=== PATIENT | male | born 1960 | race Caucasian/White ===

== ENCOUNTER → 2016-03-26 | Outpatient (CLI) | payer BC ==
[~2016-03-26] MED LIST: CETI10TA20 PO; MONT10TA24 PO; TRM50T PO
--- OUTSIDE RECORDS SUMMARY | 2016-03-26 10:05 | XMS REPORT | Continuity of Care Document ---
Author Author [facility] Organization [facility] Address Unknown Phone Unavailable Care Team Providers Care Truck Trailer Final Inspector Name Role Phone Jaylon Adler PCP [phone] Source Comments Some departments are not documenting in the electronic medical record. If you do not see the information that you expected, contact Release of Information in the Health Information Management department at [phone] for further assistance in locating additional records.[facility] Active Allergies and Adverse Reactions Allergen Noted Date Severity Reactions Comments Codeine 10/10/2010 NAUSEA AND VOMITING Current Medications Prescription Sig. Disp. Refills Start End Date Status Date ibuprofen (MOTRIN) 200 mg Take 200 mg by mouth Active tablet every 6 hours as needed for Pain. cetirizine (ZYRTEC) 10 mg Take 10 mg by mouth as Active tablet Needed for Allergy symptoms. DEXTROAMPHETAMINE/AMPHETA Take 10 mg by mouth twice Active MINE (ADDERALL PO) daily. 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 Social History Tobacco Use Types Packs/Day Years Used Date Never Smoker Last Filed Vital Signs Vital Sign Reading Time Taken Blood Pressure 121/79 09/04/2015 2:34 PM CDT Pulse 91 09/04/2015 2:34 PM CDT Temperature - - Respiratory Rate - - Height 1.829 m (6') 09/04/2015 2:34 PM CDT Weight 64.139 kg (141 lb 6.4 oz) 09/04/2015 2:34 PM CDT Body Mass Index 19.17 09/04/2015 2:34 PM CDT Oxygen Saturation - - Plan of Care Health Maintenance Due Date Last Done Comments Hepatitis C Screening 1961 Physical (Comprehensive) 1968 Exam Pertussis Vaccine 1972 Tetanus Vaccine 1978 Colorectal Cancer 09/17/2011 Screening Influenza Vaccine 10/10/2015 Results from Last 3 Months Not on file
--- NOTE | 2016-03-26 15:22 | Diagnostic Imaging Report ---
CLINICAL INDICATION: Patient with right abdominal pain. EXAM: Right upper quadrant ultrasound. COMPARISON: Gallbladder ultrasound dated 03/08/2008. FINDINGS: The liver has normal echogenicity, size and smooth liver surface. The liver measures 14.0 cm in craniocaudal dimension. There is no gross liver mass seen. There is no intrahepatic or extrahepatic ductal dilation. The common bile duct measures 3 mm. Gallbladder shows no evidence of stones or sludge. There is no significant gallbladder wall thickening or pericholecystic fluid. The pancreas is obscured and not well visualized and cannot be evaluated. Right kidney has normal echogenicity, size, or shape with no hydronephrosis or mass seen. The right kidney measures 8.9 cm in craniocaudal dimension. There is no sonographic Aquino's sign and no abdominal ascites. IMPRESSION: 1: Incomplete visualization of the pancreas. If there is clinical concern for pancreatic abnormality, serology tests or CT scan may better evaluate. 2: Otherwise, unremarkable right upper quadrant ultrasound. Dictated by: Dictated on workstation # [id number]
== END ==
LOC: RAD 10:00
DX: R10.11 Right upper quadrant pain (principal)
CPT/HCPCS: 76705

== ENCOUNTER 2016-04-28 10:41 | Outpatient (CLI) | payer BC ==
[~2016-04-28] VITALS: Ht 182.9 cm; Wt 62.6 kg
[~2016-04-28 10:41] MED LIST changes: -CETI10TA20 PO; -MONT10TA24 PO
--- OUTSIDE RECORDS SUMMARY | 2016-04-28 10:43 | XMS REPORT | Continuity of Care Document ---
Author Author [facility] Organization [facility] Address Unknown Phone Unavailable Care Team Providers Care Safe Deposit Box Rental Clerk Name Role Phone Jaylon Adler PCP [phone] Source Comments Some departments are not documenting in the electronic medical record. If you do not see the information that you expected, contact Release of Information in the Health Information Management department at [phone] for further assistance in locating additional records.[facility] Active Allergies and Adverse Reactions Allergen Noted [...]
[2016-04-28] MEDS ORDERED: CETI10TA20 PO (13:50)
[2016-04-28] MEDS ORDERED: MONT10TA24 PO (13:50)
== END 2016-04-28 13:55 ==
LOC: PREOP 10:41
PROVIDERS: ATTEND Surgery Pediatric Surgery
DX: Z01.818 Encounter for other preprocedural examination (principal); Z12.11 Encounter for screening for malignant neoplasm of colon

== ENCOUNTER 2016-04-29 09:14 | Day surgery (SDC) | payer BC ==
[~2016-04-29] VITALS: Ht 182.9 cm; Wt 62.6 kg
[~2016-04-29 09:14] MED LIST changes: +CETI10TA20 PO; +MONT10TA24 PO
[2016-04-29 09:45] VITALS: BP 120/82
[2016-04-29] MEDS ORDERED: LIDOCAINE JELLY 2% (XYLOCAINE) 5 ML TUBE MM PRN (10:00)
[2016-04-29] MEDS ORDERED: NS IV 500 ML 500 ML IV PRN (10:00)
[2016-04-29] MEDS ORDERED: NALOXONE 0.4 MG/ML 1 ML (NARCAN) VIAL IVP PRN (10:00)
[2016-04-29] MEDS ORDERED: FLUMAZENIL (ROMAZICON) 0.1 MG/ML 5 ML VIAL INJ PRN (10:00)
--- NOTE | 2016-04-29 10:14 | Conscious Sedation/ASA ---
Conscious Sedation Pre-Proced Time Reviewed: 10:14 ASA Class: 2 Airway Mallampati Classification: (confederated yakama appropriate class) I. II. III, IV Lungs Heart ASA score ASA 1: a normal healthy patient ASA 2: a patient with a mild systemic disease (mid diabetes, controlled hypertension, obesity ASA 3: a patient with a severe systemic disease that limits activity (angina , COPD, prior Myocardial infarction) ASA 4: a patient with an incapacitating disease that is a constant threat to life (CHF, renal failure) ASA 5: a moribund patient not expected to survive 24 hrs. (ruptured aneurysm) ASA 6: a declared brain patient whose organs are being harvested. For emergent operations, add the letter E after the classification Grade 2 Sedation Plan: Analgesia, Amnesia, Plan communicated to team members, Discussed options with patient/fam, Discussed risks with patient/fam Note The patient is an appropriate candidate to undergo the planned procedure, sedation, and anesthesia. The patient immediately re-assessed prior to indication. SHMUEL WILSON MD Apr 29, 2016 10:14 am
[2016-04-29] MEDS ORDERED: morphine INJ 10 MG/ML 1ML (SYR OR VIAL) IV PRN (10:15)
[2016-04-29] MEDS ORDERED: HYDROcodone/APAP 5 MG/325 MG (LORTAB) TAB PO PRN (10:15)
[2016-04-29] MEDS ORDERED: ACETAMINOPHEN 325 MG TABLET/CAPLET (TYLENOL) PO PRN (10:15)
[2016-04-29] MEDS ORDERED: ONDANSETRON 4 MG/2 ML (SDV) Z0FRAN IV PRN (10:15)
--- NOTE | 2016-04-29 10:15 | Progress Note-Pre Operative ---
Pre-Operative Progress Note H&P Reviewed The H&P was reviewed, patient examined and no changes noted. Date H&P Reviewed: Apr 29, 2016 Time H&P Reviewed: 10:14 Pre-Operative Diagnosis: screening colonoscopy SHMUEL WILSON MD Apr 29, 2016 10:15 am
[2016-04-29] MEDS ORDERED: fentaNYL INJECTION 100 MCG/2 ML AMP ONE ×2 (11:28)
[2016-04-29] MEDS ORDERED: MIDAZOLAM 2 MG/2 ML (VERSED) VIAL ONE ×5 (11:28→11:29)
[2016-04-29] MEDS ORDERED: LIDOCAINE JELLY 2% (XYLOCAINE) 5 ML TUBE ONE (11:29)
[2016-04-29] MEDS: MIDAZOLAM 2 MG/2 ML (VERSED) VIAL IVP PRN ×3 (11:40→11:50)
[2016-04-29] MEDS: fentaNYL INJECTION 100 MCG/2 ML AMP IVP PRN ×4 (11:41→11:52)
--- NOTE | 2016-04-29 12:18 | Progress Note-Post Operative ---
Post-Operative Progess Note Pre-Operative Diagnosis screening colonoscopy Post-Operative Diagnosis chronic stage 1 ext and int hemorrhoids, small HP polyp hepatic flexure(2mm). Post-Op Procedure Note Date of Procedure: Apr 29, 2016 Name of Procedure: Colonoscopy with bx Anesthesia Type CS Estimated blood loss (mL): minimal Specimen(s) collected hepatic flexure polyp SHMUEL WILSON MD Apr 29, 2016 12:18 pm
--- NOTE | 2016-04-29 12:19 | Discharge Inst-Surgical ---
D/C Lap Instructions-KATIE Follow Up 5 years Activity as tolerated High Fiber Diet 25g or more per day Avoid Alcohol, Caffeine, Spicy [place] and Acid foods. Drink 64 fluid oz or more of fluids per day. Symptoms to Report: Fever over 101 degree F, Nausea/Vomiting If any problems/questions: Contact your physician or go to Emergency Room SHMUEL WILSON MD Apr 29, 2016 12:19 pm
[2016-04-29 12:35] VITALS: BP 118/65
[2016-04-29 13:00] VITALS: BP 111/69
[2016-04-29 13:25] VITALS: BP 111/69
--- NOTE | 2016-04-29 14:01 | OPERATIVE REPORT ---
PROCEDURE PHYSICIAN: SHMUEL PFEIFFER DATE OF PROCEDURE: 04/29/2016 ATTENDING PRIMARY CARE PHYSICIAN: Dr. Jaylon Adler. PREOPERATIVE DIAGNOSIS: Screening colonoscopy. POSTOPERATIVE DIAGNOSIS: 1. Mild chronic stage I external and internal hemorrhoids. 2. Small hyperplastic polyp at the hepatic flexure 1 to 2 mm in size. 3. Mild sigmoid diverticulosis. PROCEDURE: Colonoscopy with biopsy. SURGEON: Dr. Pfeiffer. ANESTHESIA: Conscious sedation. ESTIMATED BLOOD LOSS: Minimal. FINDINGS: 1. Mild chronic stage I external and internal hemorrhoids. 2. Small hyperplastic polyp of the hepatic flexure was identified approximately 1 to 2 mm in size. 3. Mild sigmoid diverticulosis 4. The remainder of the colon was normal. DISPOSITION: The patient tolerated procedure well. Mr. Aneesh Shell is a 55-year-old male in need of a screening colonoscopy. He states that for the most part he is doing well and does not report any major issues with diarrhea, nor constipation, as well as no red blood per rectum nor any dark tarry stools. He has not had a colonoscopy up to this point in his life. He also does not report any family history of colon cancer. PROCEDURE: The patient was brought to the endoscopy suite, laid in left lateral decubitus position. After adequate IV pain and sedative medications and conscious sedation anesthesia, a digital rectal examination was performed. Mild chronic stage I external and internal hemorrhoids were identified which were not actively edematous or inflamed and no bleeding. Normal sphincter tone was felt and there were no palpable masses. The prostate gland was palpable and appeared normal. The endoscope was then intubated into the anus and the rectum gently insufflated. The endoscope was then advanced through the valve of Mendez the rectum with no polyps or any neoplasms identified. The endoscope was then advanced through the sigmoid colon where a few small isolated diverticula identified. The endoscope was then advanced through the remainder of the descending, transverse, and ascending colon to the cecum. A small hyperplastic polyp around the hepatic flexure was identified. This was approximately 2 mm in size and benign in appearance. This was biopsied and destroyed using forceps and cautery with visualization of good hemostasis. The endoscope was then slowly withdrawn while taking a second look and suctioning of residual air with no additional findings. The patient tolerated the procedure well. We will continue with a high fiber diet with least 30 grams of fiber per day, as well as at least 64 fluid ounces of water to promote soft stools on a daily basis. We will recommend a follow-up colonoscopy in 5 years. Job ID: [id number] Dictated Date: 04/29/2016 12:13:33 Appointment Specialist Date: 04/29/2016 13:55:02 / trupti MACEDO
--- OUTSIDE RECORDS SUMMARY | 2016-05-03 04:44 | XMS REPORT ---
Author Author KENIA BURNETT Organization [employer] Address Unknown Phone Unavailable Care Team Providers Care Director Environmental Name Role Phone KENIA BURNETT CP Unavailable Allergies No Known Allergies Problems Problem Type Condition ICD-9 Code Onset Dates Condition Status Assessment Anxiety disorder, unspecified 300.00 Active Medications No Known Medications Procedures Procedure Coding System Code Date Psychotherapy, patient &/family, 45 minutes, established patient CPT-4 18550 Sep 27, 2014 Results No Known Results Summary Purpose [employer] Submission
--- OUTSIDE RECORDS SUMMARY | 2016-05-03 04:44 | XMS REPORT | Continuity of Care Document ---
Author Author [facility] Organization [facility] Address Unknown Phone Unavailable Care Team Providers Care Jewelry Finisher Name Role Phone Jaylon Adler PCP [phone] Source Comments Some departments are not documenting in the electronic medical record. If you do not see the information that you expected, contact Release of Information in the Health Information Management department at [phone] for further assistance in locating additional records.[facility] Active Allergies and Adverse Reactions Allergen [...] 1978 Colorectal Cancer 09/17/2011 Screening Influenza Vaccine 10/09/2016 Results from Last 3 Months Not on file
--- OUTSIDE RECORDS SUMMARY | 2016-05-03 04:44 | XMS REPORT ---
Author Author KENIA BURNETT Organization [employer] Address Unknown Phone Unavailable Care Team Providers Care Chief Growth Officer Name Role Phone KENIA BURNETT CP Unavailable Allergies No Known Allergies Problems Problem Type Condition ICD-9 Code Onset Dates Condition Status Assessment Anxiety disorder, unspecified 300.00 Active Medications No Known Medications Procedures Procedure Coding System Code Date Psychotherapy, patient &/family, 45 minutes, established patient CPT-4 42470 Oct 05, 2014 Results No Known Results Summary Purpose [employer] Submission
--- OUTSIDE RECORDS SUMMARY | 2016-05-03 04:44 | XMS REPORT ---
Author Author KENIA BURNETT Organization [employer] Address Unknown Phone Unavailable Care Team Providers Care Elevator Operator Freight Name Role Phone KENIA BURNETT CP Unavailable Allergies No Known Allergies Problems Problem Type Condition Code Onset Dates Condition Status Assessment Anxiety disorder, unspecified F41.9 Active Problem Anxiety disorder, unspecified F41.9 Active Medications No Known Medications Procedures Procedure Coding System Code Date Psychotherapy, patient &/family, 45 minutes, established patient CPT-4 04625 Jan 28, 2015 Results No Known Results Summary Purpose [employer] Submission
--- OUTSIDE RECORDS SUMMARY | 2016-05-03 04:44 | XMS REPORT ---
Author Author KENIA BURNETT Organization [employer] Address Unknown Phone Unavailable Care Team Providers Care Healthcare Social Worker Name Role Phone KENIA BURNETT CP Unavailable Allergies No Known Allergies Problems Problem Type Condition ICD-9 Code Onset Dates Condition Status Assessment Anxiety disorder, unspecified 300.00 Active Medications No Known Medications Procedures Procedure Coding System Code Date Psychotherapy, patient &/family, 45 minutes, established patient CPT-4 11022 Oct 11, 2014 Results No Known Results Summary Purpose [employer] Submission
--- OUTSIDE RECORDS SUMMARY | 2016-05-03 04:44 | XMS REPORT ---
Author Author KENIA BURNETT Organization [employer] Address Unknown Phone Unavailable Care Team Providers Care Reclamation Kettle Tender Name Role Phone KENIA BURNETT CP Unavailable Allergies No Known Allergies Problems Problem Type Condition Code Onset Dates Condition Status Assessment Anxiety disorder, unspecified F41.9 Active Problem Anxiety disorder, unspecified F41.9 Active Medications No Known Medications Procedures Procedure Coding System Code Date Psychotherapy, patient &/family, 45 minutes, established patient CPT-4 73269 August 29, 2015 Results No Known Results Summary Purpose [employer] Submission
--- OUTSIDE RECORDS SUMMARY | 2016-05-03 04:44 | XMS REPORT ---
Author Author KENIA BURNETT Organization [employer] Address Unknown Phone Unavailable Care Team Providers Care Manager Net Name Role Phone KENIA BURNETT CP Unavailable Allergies No Known Allergies Problems Problem Type Condition Code Onset Dates Condition Status Assessment Anxiety disorder, unspecified F41.9 Active Problem Anxiety disorder, unspecified F41.9 Active Medications No Known Medications Procedures Procedure Coding System Code Date Psychotherapy, patient &/family, 45 minutes, established patient CPT-4 55897 Dec 19, 2014 Results No Known Results Summary Purpose [employer] Submission
--- OUTSIDE RECORDS SUMMARY | 2016-05-03 04:44 | XMS REPORT ---
Author Author KENIA BURNETT Organization [employer] Address Unknown Phone Unavailable Care Team Providers Care Drapery Hemmer Automatic Name Role Phone KENIA BURNETT CP Unavailable Allergies No Known Allergies Problems Problem Type Condition ICD-9 Code Onset Dates Condition Status Assessment Anxiety disorder, unspecified 300.00 Active Medications No Known Medications Procedures Procedure Coding System Code Date Psychotherapy, patient &/family, 45 minutes, established patient CPT-4 21833 Oct 25, 2014 Results No Known Results Summary Purpose [employer] Submission
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
--- OUTSIDE RECORDS SUMMARY | 2016-05-03 04:44 | XMS REPORT ---
Author Author KENIA BURNETT [facility] Address [address] [place] [address] Care Team Providers Care Planning Aide Name Role Phone KENIA BURNETT Unavailable PROBLEMS Type Condition ICD9-CM Code DTF14-PD Code Onset Dates Condition Status SNOMED Code Problem Anxiety disorder, unspecified F41.9 Active 891930267 Assessment Anxiety disorder, unspecified F41.9 Oct, Active [id number] ALLERGIES Unknown Allergies SOCIAL HISTORY No smoking Hx information available PLAN OF CARE VITAL SIGNS MEDICATIONS Unknown Medications RESULTS No Results PROCEDURES Procedure Date Ordered Related Diagnosis Body Site Psychotherapy, patient &/family, 45 minutes, established patient Oct 23, 2015 IMMUNIZATIONS No Known Immunizations
--- OUTSIDE RECORDS SUMMARY | 2016-05-03 04:44 | XMS REPORT ---
Author Author KENIA BURNETT Organization [employer] Address Unknown Phone Unavailable Care Team Providers Care Category Manager Name Role Phone KENIA BURNETT CP Unavailable Allergies No Known Allergies Problems Problem Type Condition Code Onset Dates Condition Status Assessment Anxiety disorder, unspecified F41.9 Active Problem Anxiety disorder, unspecified F41.9 Active Medications No Known Medications Procedures Procedure Coding System Code Date Psychotherapy, patient &/family, 45 minutes, established patient CPT-4 96188 Mar 04, 2015 Results No Known Results Summary Purpose [employer] Submission
== END 2016-04-29 13:25 | disposition home or self-care (01) ==
LOC: DELPENDDIS → ENDO 09:14
PROVIDERS: ATTEND Surgery Pediatric Surgery
DX: Z12.11 Encounter for screening for malignant neoplasm of colon (principal); K63.5 Polyp of colon; K57.30 Diverticulosis of large intestine without perforation or abscess without bleeding; K64.0 First degree hemorrhoids
CPT/HCPCS: 88305

== ENCOUNTER 2019-09-10 15:24 | Emergency (ER) | payer BC ==
[~2019-09-10] VITALS: Ht 180.3 cm; Wt 68.9 kg
[~2019-09-10 15:24] MED LIST changes: -CETI10TA20 PO; +CETI10TA21 PO; -MONT10TA24 PO; +MONT10TA26 PO
--- OUTSIDE RECORDS SUMMARY | 2019-09-10 15:38 | XMS REPORT ---
Author Author Aneesh JOSE Organization [facility] Address [address] [place] [address] Care Team Providers Care Contract Engineer Name Role Phone DAMON MIRA Unavailable PROBLEMS Type Condition ICD9-CM Code USB34-BE Code Onset Dates Condition S tatus SNOMED Code Problem Anxiety disorder, unspecified F41.9 Active [id number] ALLERGIES No Information ENCOUNTERS Encounter Location Date Diagnosis [place] [address] [place] [id number] [place] [address] June, Anxiety disorder, unspecifie d F41.9 [place] [address] [place] [id number] [address] [place] [address] May, Anxiety disorder, unspecifie d F41.9 [facility] [address] [address] [id number] [address] [place] [address] Apr, Anxiety disorder, unspecifie d F41.9 [place] [address] [place] [id number] [address] [place] [address] Apr, [facility] [address] [address] [id number] [place] [address] Feb, Anxiety disorder, unspecifie d F41.9 [facility] [address] [id number] [address] [place] [address] Jan, Anxiety disorder, unspecifie d F41.9 [facility] [address] [place] [address] [id number] [address] [place] [address] Dec, Anxiety disorder, unspecifie d F41.9 [facility] [address] [place] [address] [id number] [place] [address] Nov, Anxiety disorder, unspecifie d F41.9 [place] [address] [facility] [id number] [address] [place] [address] Oct, Anxiety disorder, unspecifie d F41.9 [facility] [address] [facility] [id number] [address] [place] [address] Sep, Anxiety disorder, unspecifie d F41.9 [facility] [address] [facility] [id number] [address] [place] [address] Aug, Anxiety disorder, unspecifie d F41.9 [facility] [address] [facility] [id number] [address] [place] [address] Jul, Anxiety disorder, unspecifie d F41.9 [facility] [address] [facility] [id number] [address] [place] [address] June, Anxiety disorder, unspecifie d F41.9 [facility] [address] [facility] [id number] [address] [place] [address] May, Anxiety disorder, unspecifie d F41.9 [facility] [address] [facility] [id number] [address] [place] [address] May, Anxiety disorder, unspecifie d F41.9 [facility] [address] [facility] [id number] [address] [place] [address] Feb, Anxiety disorder, unspecifie d F41.9 [facility] [address] [facility] [id number] [address] [place] [address] May, Anxiety disorder, unspecifie d F41.9 [facility] [address] [facility] [id number] [address] [place] [address] Apr, Anxiety disorder, unspecifie d F41.9 [facility] [address] [facility] [id number] [address] [place] [address] Mar, Anxiety disorder, unspecifie d F41.9 [facility] [address] [facility] [id number] [address] [place] [address] Oct, Anxiety disorder, unspecifie d F41.9 [facility] [address] [id number] [address] [place] [address] Oct, Anxiety disorder, unspecifie d F41.9 [facility] [address] [id number] [address] [place] [address] Aug, Anxiety disorder, unspecifie d F41.9 [facility] [address] [id number] [address] [place] [address] Jul, Anxiety disorder, unspecifie d F41.9 [facility] [address] [id number] [address] [place] [address] Jul, Anxiety disorder, unspecifie d F41.9 [facility] [address] [facility] [id number] [address] [place] [address] June, Anxiety disorder, unspecifie d F41.9 [facility] [address] [facility] [id number] [address] [place] [address] June, Anxiety disorder, unspecifie d F41.9 [facility] [address] [facility] [id number] [address] [place] [address] May, Anxiety disorder, unspecifie d F41.9 [facility] [address] [facility] [id number] [address] [place] [address] Apr, Anxiety disorder, unspecifie d F41.9 [facility] [address] [facility] [id number] [address] [place] [address] Apr, Anxiety disorder, unspecifie d F41.9 [facility] [address] [facility] [id number] [address] [place] [address] Mar, Anxiety disorder, unspecifie d F41.9 [facility] [address] [facility] [id number] [address] [place] [address] Feb, Anxiety disorder, unspecifie d F41.9 [facility] [address] [place] [id number] [address] [place] [address] Jan, Anxiety disorder, unspecifie d F41.9 [facility] [address] [place] [id number] [address] [place] [address] Dec, Anxiety disorder, unspecifie d F41.9 [facility] [address] [place] [id number] [place] [address] Nov, Anxiety disorder, unspecifie d F41.9 [facility] [address] [place] [id number] [address] [place] [address] Oct, Anxiety disorder, unspecifie d 300.00 [facility] [address] [id number] Oct, Anxiety disorder, unspecifie d 300.00 [facility] [address] [place] [id number] [address] [place] [address] Sep, Anxiety disorder, unspecifie d 300.00 [facility] [address] [place] [id number] [address] [place] [id number] Sep, Anxiety disorder, unspecifie d 300.00 [facility] [address] [place] [id number] [address] [place] [address] Sep, Anxiety disorder, unspecifie d 300.00 [facility] [address] [place] [id number] [address] [place] [address] Sep, Anxiety disorder, unspecifie d 300.00 [facility] [address] [place] [id number] [address] [place] [address] Aug, Anxiety disorder, unspecifie d 300.00 [facility] [address] [place] [id number] [address] [place] [address] June, Anxiety disorder, unspecifie d 300.00 [facility] [address] [place] [id number] [address] [place] [address] Apr, [facility] [address] [id number] [address] [place] [address], [place] [address] Apr, [facility] [address] [id number] [address] [place] [address], [place] [address] Apr, [facility] [address] [id number] [address] [place] [address], [place] [address] Apr, [facility] [address] [id number] [address] [place] [address], [place] [address] Mar, 2014 [facility] [address] [id number] [address] [place] [address], [place] [address] Mar, 2014 [facility] [address] [id number] [address] [place] [address], [place] [address] Mar, 2014 [facility] [address] [id number] [address] [place] [address], [place] [address] Mar, [facility] [address] [id number] [address] [place] [address], [place] [address] Aug, [facility] [address] [id number] [address] [place] [address], [place] [address] Aug, [facility] [address] [id number] [address] [place] [address], [place] [address] Apr, [facility] [address] [id number] [address] [place] [address], [place] [address] Apr, [facility] [address] [id number] [address] [place] [address], [place] [address] Mar, [facility] [address] [id number] [address] [place] [address], [place] [address] Mar, [facility] [address] [id number] [address] [place] [address], [place] [address] Feb, [facility] [address] [id number] [address] [place] [address], [place] [address] Feb, [facility] [address] [id number] [address] [place] [address], [place] [address] Feb, [facility] [address] [id number] [address] [place] [address], [place] [address] Feb, [facility] [address] [id number] [address] [place] [address], [place] [address] Oct, [facility] [address] [id number] [address] [place] [address], [place] [address] Sep, [facility] [address] [id number] [address] [place] [address], [place] [address] Aug, [facility] [address] [id number] [address] [place] [address], [place] [address] May, [facility] [address] [id number] [address] [place] [address], [place] [address] Apr, [facility] [address] [id number] [address] [place] [address], [place] [address] Mar, [facility] [address] [id number] [address] [place] [address], [place] [address] Mar, [facility] [address] [id number] [address] [place] [address], [place] [address] Feb, [facility] [address] [id number] [address] [place] [address], [place] [address] Jan, [facility] [address] [id number] [address] [place] [address], [place] [address] Jan, [facility] [address] [id number] [address] [place] [phone] Dec, [facility] [address] [id number] [address] [place] [address], [place] [address] Dec, [facility] [address] [id number] [address] [place] [address], [place] [address] Nov, [facility] [address] [id number] [address] [place] [address], [place] [address] Nov, [facility] [address] [id number] [address] [place] [address], [place] [address] Oct, [facility] [address] [id number] [address] [place] [address], [place] [address] Sep, [facility] [address] [id number] [address] [place] [address], [place] [address] Sep, [facility] [address] [id number] [address] [place] [address], [place] [address] Aug, [facility] [address] [id number] [address] [place] [address], [place] [address] Aug, [facility] [address] [id number] [address] [place] [address], [place] [address] Jul, [facility] [address] [id number] [address] [place] [address], [place] [address] Jul, [facility] [address] [id number] [address] [place] [address], [place] [address] June, [facility] [address] [id number] [address] [place] [address], [place] [address] June, [facility] [address] [id number] [address] [place] [address], [place] [address] May, [facility] [address] [id number] [address] [place] [address], [place] [address] May, [facility] [address] [id number] [address] [place] [address], [place] [address] May, [facility] [address] [id number] [address] [place] [address], [place] [address] Apr, [facility] [address] [id number] [address] [place] [address], [place] [address] Apr, [facility] [address] [id number] [address] [place] [address], [place] [address] Mar, [facility] [address] [id number] [address] [place] [address], [place] [address] Feb, [facility] [address] [facility] [id number] [address] [place] [address] Feb, [facility] [address] [facility] [id number] [address] [place] [address] Dec, [facility] [address] [facility] [id number] [address] [place] [address] Nov, IMMUNIZATIONS No Known Immunizations SOCIAL HISTORY Never Assessed REASON FOR VISIT PLAN OF CARE VITAL SIGNS MEDICATIONS Unknown Medications RESULTS No Results PROCEDURES Procedure Date Ordered Result Body Site PSYTX PT&/FAMILY 45 MINUTES Sep 22, 2012 INSTRUCTIONS MEDICATIONS ADMINISTERED No Known Medications
--- OUTSIDE RECORDS SUMMARY | 2019-09-10 15:38 | XMS REPORT ---
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 [facility] Address [address] [address] Care Team Providers Care Educational Institution Curator Name Role Phone BOEKHOUT, KENIA Unavailable Unavailable PELON JAYLON D Unavailable SCHOEBETY JAYLON D Unavailable BOEKHOUT, KENIA Unavailable BOEKHOUT, KENIA Unavailable BOEKHOUT, KENIA Unavailable BOEKHOUT, KENIA Unavailable BOEKHOUT, KENIA Unavailable BOEKHOUT, KENIA Unavailable BOEKHOUT, KENIA Unavailable BOEKHOUT, KENIA Unavailable BOEKHOUT, KENIA Unavailable BOEKHOUT, KENIA Unavailable BOEKHOUT, KENIA Unavailable KATIE SCHROEDER, SHMUEL Unavailable Unavailable PELON SCHROEDER, JAYLON D Unavailable Unavailable THANIA SCHROEDER, URIAH Unavailable Unavailable DEB SCHROEDER, AHMED T Unavailable Unavailable DEBBIE BLANCHARD APRN Unavailable Unavailable Schoebety Jaylon Unavailable Unavailable BOEKHOUT, KENIA Unavailable MIRA JOSE Unavailable BOEKHOUT, KENIA Unavailable BOEKHOUT, KENIA Unavailable MIRA JOSE Unavailable MIRA JOSE Unavailable MIRA JOSE Unavailable BOEKHOUT, KENIA Unavailable MIRA JOSE Unavailable BOEKHOUT, KENIA Unavailable BOEKHOUT, KENIA Unavailable LEX KENIA Unavailable LEX KENIA Unavailable MIRA JOSE Unavailable KENIA BURNETT Unavailable MIRA JOSE Unavailable MIRA JOSE Unavailable Unavailable Unavailable Unavailable Unavailable Allergies The data below is from unstructured sourcesNo Known Allergies No Information No Information No Information No Information No Information No Information No Information No Information No Information No Information No Information No Information No Information No Information No Information No Information No Information No Information No Information No Information No Information No Information No Information No Information No Information No Information No Information No Information No Information No Information No Information No Information Encounters Encounter Date Encounter Type Encounter Diagnosis Care Provider Facility Start: Patient encounter Jaylon Bird [facility] 06-23-2018 procedure [facility] ([id number]) Start: Patient encounter Jaylon Bird [facility] 04-22-2018 procedure Center [facility] ([id number]) Start: Patient encounter Jaylon Bird [facility] 03-03-2018 procedure Center [facility] ([id number]) Start: Patient encounter Jaylon Bird [facility] 01-26-2018 procedure [facility] ([id number]) Start: Patient encounter NA NA Not Availab le ([id number]) 09-09-2017 procedure Start: Patient encounter Jaylon Bird [facility] 07-14-2017 procedure Center [facility] ([id number]) Start: Patient encounter Jaylon Bird [facility] 07-07-2017 procedure Center [facility] ([id number]) Start: Patient encounter Jaylon Bird [facility] 05-27-2017 procedure Center [facility] ([id number]) Start: Patient encounter Jaylon Bird [facility] 05-11-2017 procedure [facility] ([id number]) Start: Patient encounter SHMUEL WILSON MD Not Availa ble ([id number]) 04-29-2016 procedure End: 04-29-2016 Start: Patient encounter SHMUEL WILSON MD Not Availa ble ([id number]) 04-28-2016 procedure End: 04-28-2016 Start: Patient encounter JAYLON BIRD MD Not Avai lable ([id number]) 03-26-2016 procedure Start: Patient encounter JAYLON BIRD MD Not Avai lable ([id number]) 04-26-2015 procedure Start: Patient encounter URIAH MONTEIRO MD Not Kae ilable ([id number]) 04-26-2015 procedure Start: Patient encounter JEFF BOYD MD Not Availa ble ([id number]) 08-17-2014 procedure Start: Patient encounter JEFF BOYD MD Not Availa ble ([id number]) 08-16-2014 procedure Start: Emergency department DEBBIE BARONES Not Avai lable ([id number]) 08-12-2014 patient visit End: 08-13-2014 Start: Emergency department DEBBIE BARONES Not Avai lable ([id number]) 01-17-2013 patient visit End: 01-17-2013 Start: Patient encounter JAYLON BIRD MD Not Avai lable ([id number]) 10-09-2010 procedure Encounter for other SHMUEL WILSON MD Not Available ([phone]) preprocedural examination Medical Equipment No Information Goals No Information Immunizations The data below is from unstructured sourcesNo immunization records.No immunization records.No immunization records. No Known Immunizations No Known Immunizations No Known Immunizations No Known Immunizations No Known Immunizations No Known Immunizations No Known Immunizations No Known Immunizations No Known Immunizations No Known Immunizations No Known Immunizations No Known Immunizations No Known Immunizations No Known Immunizations No Known Immunizations No Known Immunizations No Known Immunizations No Known Immunizations No Known Immunizations No Known Immunizations No Known Immunizations No Known Immunizations No Known Immunizations No Known Immunizations No Known Immunizations No Known Immunizations No Known Immunizations No Known Immunizations No Known Immunizations No Known Immunizations No Known Immunizations No Known Immunizations Interventions No Information Medications The data below is from unstructured sourcesNo Known Medications Unknown Medications Unknown Medications Unknown Medications Unknown Medications Unknown Medications Unknown Medications Unknown Medications Unknown Medications Unknown Medications Unknown Medications Unknown Medications Unknown Medications Unknown Medications Unknown Medications Unknown Medications Unknown Medications Unknown Medications Unknown Medications Unknown Medications Unknown Medications Unknown Medications Unknown Medications Unknown Medications Unknown Medications Unknown Medications Unknown Medications Unknown Medications Unknown Medications Unknown Medications Unknown Medications Unknown Medications No Known Medications No Known Medications No Known Medications No Known Medications No Known Medications No Known Medications No Known Medications No Known Medications No Known Medications No Known Medications No Known Medications No Known Medications No Known Medications No Known Medications No Known Medications No Known Medications No Known Medications No Known Medications No Known Medications No Known Medications No Known Medications No Known Medications No Known Medications No Known Medications No Known Medications No Known Medications No Known Medications No Known Medications Unknown Medications No Known Medications Payers No Information Plan of Treatment Date Care Activity Detail Author Start: [facility] 12-21-2017 Start: [facility] 11-16-2017 Problems Active Problems Problem Problem Date Last Documented Episodic/Chr Provider Classificati Recorded Date onic on Diverticulos Diverticulosis of large intestine Chronic TAKAAKI KIDO is and without perforation or abscess diverticulit without bleeding is (4 sources) Headache; Episodic cluster headache Chronic RI CK including PELON SCHROEDER migraine (1 source) Other eye Mydriasis (persistent), not due to Chronic AHMED DEB disorders mydriatics (1 source) Other eye Anisocoria Chronic PETER BLANCHARD disorders (1 source) Other eye 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 (1 source) Other Obstructive hydrocephalus Chronic DI PIKA nervous THANIA system disorders (1 source) Past or Other Problems Problem Problem Date Last Documented Episodic/Chr Provider Classificati Recorded Date onic on Abdominal Right upper quadrant pain Episodic RI CK pain PELON SCHROEDER (3 sources) E Codes: Accidental fall on or from other Episodic PETER BLANCHARD Fall stairs or steps (1 source) E Codes: Accidents occurring in public Episodic [facility] BLANCHARD Place of building occurrence (1 source) E Codes: Other external cause status Episodic PETER BLANCHARD Unspecified (1 source) Gastrointest Hemorrhage of anus and rectum Episodic PETER BLANCHARD inal hemorrhage (1 source) Headache; Headache Episodic AHMED DEB including migraine (2 sources) Other and Polyp of colon Episodic TAKAAKI KIDO unspecified MD benign neoplasm (4 sources) Other eye Other specified disorders of eye Episodic PETER BLANCHARD disorders and adnexa (1 source) Other Shoulder and upper arm injury Episodic PETER BLANCHARD injuries and conditions due to external causes (1 source) Other Encounter for screening for Episodic JAYLON screening malignant neoplasm of colon ; ANDRZEJ ALBERT MD for Transl[employer]: [Encounter fo r suspected screening for other disorde r] conditions (not mental disorders or infectious disease) (6 sources) Procedures Date Procedure Procedure Detail Performing Cl inician Start: Psychotherapy KENIA BOEKHOUT 04-22-2018 w/patient 45 Other Phone: minutes Start: Psychotherapy KENIA BOEKHOUT 11-16-2017 w/patient 45 Other Phone: minutes Start: Psychotherapy KENIA BOEKHOUT 10-13-2017 w/patient 45 Other Phone: minutes Start: Psychotherapy KENIA BOEKHOUT 09-09-2017 w/patient 45 Other Phone: minutes Start: Psychotherapy KENIA BOEKHOUT 05-27-2017 w/patient 45 Other Phone: minutes Start: Psychotherapy KENIA BOEKHOUT 04-02-2014 w/patient 45 Other Phone: minutes Start: Psychotherapy KENIA BOEKHOUT 03-20-2014 w/patient 46 Other Phone: [phone] minutes Start: Psychiatric MIRA DAMON 08-22-2013 diagnostic Other Phone: [phone] evaluation Start: RELATIONSHIP COUN KENIA BOEKHOUT 04-06-2013 12 Other Phone: [phone] Start: RELATIONSHIP COUN KENIA BOEKHOUT 02-13-2013 12 Other Phone: [phone] Start: Psychotherapy MIRA DAMON 10-20-2012 w/patient 45 Other Phone: [phone] minutes Start: Psychotherapy MIRA DAMON 09-22-2012 w/patient 45 Other Phone: [phone] minutes Results The data below is from unstructured sourcesNo Known Results No known relevant diagnostic tests, laboratory data and/or discharge summary.No known relevant diagnostic tests, laboratory data and/or discharge summary.No known relevant diagnostic tests, laboratory data and/or discharge summary.No known relevant diagnostic tests, laboratory data and/or discharge summary. No Results No Results No Results No Results No Results No Results No Results No Results No Results No Results No Results No Results No Results No Results No Results No Results No Results No Results No Results No Results No Results No Results No Results No Results No Results No Results No Results No Results No Results No Results No Results No Results Social History No Information Vital Signs The data below is from unstructured sources Vital Response Date/Time Temperature (Fahrenheit) 98.0 degree s F (97.6 - 99.5) Temperature (Calculated Celsius) 36. 34862 degrees C (36.4 - 37.5) Temperature Source Temporal Pulse Rate (adult) 75 bpm (60 - 90) Respiratory Rate 18 bpm (12 - 24) O2 Sat by Pulse Oximetry 96 % (88 - 100) Blood Pressure 115/80 mm Hg Pain Pain Intensity 0 Height (Feet) 6 feet Height (Inches) 0 inches Height (Calculated Centimeters) 182. 704563 cm Weight (Pounds) 138 pounds Weight (Calculated Kilograms) 62.595 748 kilograms Calculated BMI 18.71 Vital Response Date/Time Temperature (Fahrenheit) 98.3 degree s F (97.6 - 99.5) 11/24/2014 11:28am Temperature (Calculated Celsius) 36. 63975 degrees C (36.4 - 37.5) 11/24/2014 11:28am Temperature Source Temporal 11/24/2014 11:28am Pulse Rate (adult) 67 bpm (60 - 90) 11/24/2014 11:28am Respiratory Rate 18 bpm (12 - 24) 11/24/2014 11:28am O2 Sat by Pulse Oximetry 98 % (88 - 100) 11/24/2014 11:28am Blood Pressure 117/78 mm Hg 11/24/2014 11:28am Blood Pressure Mean 91 mm Hg 11/24/2014 11:28am Pain Pain Intensity 0 2014 11:28am Height (Feet) 6 feet 11:28am Height (Inches) 0 inches 11/24/2014 11:28am Height (Calculated Centimeters) 182. 365364 cm 11/24/2014 11:28am Weight (Pounds) 138 pounds 11/24/2014 11:28am Weight (Calculated Grams) 60689.748 gm 11/24/2014 11:28am Weight (Calculated Kilograms) 62.595 748 kilograms 11/24/2014 11:28am Calculated BMI 18.71 11:28am Functional Status The data below is from unstructured sourcesNo functional status results.No functional status results.No functional status results. Mental Status No Information Summary Purpose eClinicalWorks Submission Advance Directives Directive Response Recor ded Date/Time Advance Directives No 10:00pm Health Care Power of Staff Counsel No 08/12/14 10:00pm Organ Donor No 08/12/14 10:00pm Resuscitation Status Full Code 08/12/14 10:00pm Directive Response Recor ded Date/Time Advance Directives No 11:32am Health Care Power of Staff Counsel No 11/24/14 11:32am Organ Donor Yes 11/24/14 11:32am Resuscitation Status Full Code 11/24/14 11:32am Discharge Instructions No hospital discharge instructions.No hospital discharge instructions. Additional Source Comments This clinical document has been generated using [employer] software that has been certified by the Office of the National Coordinator for Health Information Technology (ONC 15.99.04.3023.Diam.31.00.0.139112) and the National Committee for Disc Pad Plate Filler (NCQA, as an eMeasure certified technology). FOR RECORDS PERTAINING TO PATIENTS WHO ARE OR HAVE BEEN ENROLLED IN A CHEMICAL D EPENDENCY/SUBSTANCE ABUSE PROGRAM, SOME INFORMATION MAY BE OMITTED. This clinica l summary was aggregated from multiple sources. Caution should be exercised in using it in the provision of clinical care. This summary normalizes information from multiple sources, and as a consequence, information in this document may ma terially change the coding, format and clinical context of patient data. In anastasiya tion, data may be omitted in some cases. CLINICAL DECISIONS SHOULD BE BASED ON T HE PRIMARY CLINICAL RECORDS. [employer] provides no warranty or guara ntee of the accuracy or completeness of information in this document.The followi ng information is based on time limited clinical information UNRECOGNIZED CONTENT PROVIDED BELOW FOR UNRECOGNIZED SECTION REASON FOR VISIT BH f/uBH f/uBH f/uBH f/uBH f/uBH f/u
--- OUTSIDE RECORDS SUMMARY | 2019-09-10 15:38 | XMS REPORT ---
Author Author Aneesh JOSE Organization [facility] Address [address] [place] [address] Care Team Providers Care Transmitter Chief Name Role Phone DAMON MIRA Unavailable PROBLEMS Type Condition ICD9-CM Code QLO88-FM Code Onset Dates Condition S tatus SNOMED Code Problem Anxiety disorder, unspecified F41.9 Active [id number] ALLERGIES No Information ENCOUNTERS Encounter Location Date Diagnosis [place] [address] [place] [id number] [address] [place] [phone] June, Anxiety disorder, unspecifie d F41.9 [place] [address] [place] [id number] [address] [place] [address] May, Anxiety disorder, unspecifie d F41.9 [facility] [address] [place] [id number] [address] [place] [phone] Apr, Anxiety disorder, unspecifie d F41.9 [place] [address] [place] [id number] [address] [place] [phone] Apr, [facility] [address] [place] [id number] [address] [place] [phone] Feb, Anxiety disorder, unspecifie d F41.9 [facility] [address] [place] [id number] [address] [place] [phone] Jan, Anxiety disorder, unspecifie d F41.9 [facility] [address] [place] [id number] [address] [place] [phone] Dec, Anxiety disorder, unspecifie d F41.9 [facility] [address] [place] [id number] [address] [place] [phone] Nov, Anxiety disorder, unspecifie d F41.9 [place] [id number] [facility] [id number] [address] [place] [phone] Oct, Anxiety disorder, unspecifie d F41.9 [facility] [address] [facility] [id number] [address] [place] [phone] Sep, Anxiety disorder, unspecifie d F41.9 [facility] [address] [facility] [id number] [address] [place] [phone] Aug, Anxiety disorder, unspecifie d F41.9 [facility] [address] [facility] [id number] [address] [place] [phone] Jul, Anxiety disorder, unspecifie d F41.9 [facility] [address] [facility] [id number] [address] [place] [phone] June, Anxiety disorder, unspecifie d F41.9 [facility] [address] [facility] [id number] [address] [place] [phone] May, Anxiety disorder, unspecifie d F41.9 [facility] [address] [facility] [id number] [address] [place] [phone] May, Anxiety disorder, unspecifie d F41.9 [facility] [address] [facility] [id number] [address] [place] [phone] Feb, Anxiety disorder, unspecifie d F41.9 [facility] [address] [facility] [id number] [address] [place] [phone] May, Anxiety disorder, unspecifie d F41.9 [facility] [address] [facility] [id number] [address] [place] [phone] Apr, Anxiety disorder, unspecifie d F41.9 [facility] [address] [facility] [id number] [address] [place] [phone] Mar, Anxiety disorder, unspecifie d F41.9 [facility] [address] [facility] [id number] [address] [place] [phone] Oct, Anxiety disorder, unspecifie d F41.9 [facility] [address] [id number] [address] [place] [phone] Oct, Anxiety disorder, unspecifie d F41.9 [facility] [address] [id number] [address] [place] [phone] Aug, Anxiety disorder, unspecifie d F41.9 [facility] [address] [id number] [address] [place] [phone] Jul, Anxiety disorder, unspecifie d F41.9 [facility] [address] [id number] [address] [place] [phone] Jul, Anxiety disorder, unspecifie d F41.9 [facility] [address] [facility] [id number] [address] [place] [phone] June, Anxiety disorder, unspecifie d F41.9 [facility] [address] [facility] [id number] [address] [place] [phone] June, Anxiety disorder, unspecifie d F41.9 [facility] [address] [facility] [id number] [address] [place] [phone] May, Anxiety disorder, unspecifie d F41.9 [facility] [address] [facility] [id number] [address] [place] [phone] Apr, Anxiety disorder, unspecifie d F41.9 [facility] [address] [facility] [id number] [address] [place] [phone] Apr, Anxiety disorder, unspecifie d F41.9 [facility] [address] [facility] [id number] [address] [place] [phone] Mar, Anxiety disorder, unspecifie d F41.9 [facility] [address] [facility] [id number] [address] [place] [phone] Feb, Anxiety disorder, unspecifie d F41.9 [facility] [address] [place] [id number] [address] [place] [phone] Jan, Anxiety disorder, unspecifie d F41.9 [facility] [address] [place] [id number] [address] [place] [phone] Dec, Anxiety disorder, unspecifie d F41.9 [facility] [address] [place] [id number] [address] [place] [phone] Nov, Anxiety disorder, unspecifie d F41.9 [facility] [address] [place] [id number] [address] [place] [phone] Oct, Anxiety disorder, unspecifie d 300.00 [facility] [address] [phone] Oct, Anxiety disorder, unspecifie d 300.00 [facility] [address] [place] [id number] [address] [place] [phone] Sep, Anxiety disorder, unspecifie d 300.00 [facility] [address] [place] [id number] [address] [place] [phone] Sep, Anxiety disorder, unspecifie d 300.00 [facility] [address] [place] [id number] [address] [place] [phone] Sep, Anxiety disorder, unspecifie d 300.00 [facility] [address] [place] [id number] [address] [place] [phone] Sep, Anxiety disorder, unspecifie d 300.00 [facility] [address] [place] [id number] [address] [place] [phone] Aug, Anxiety disorder, unspecifie d 300.00 [facility] [address] [place] [id number] [address] [place] [phone] June, Anxiety disorder, unspecifie d 300.00 [facility] [address] [place] [id number] [address] [place] [phone] Apr, [facility] [address] [id number] [address] [place] [address], [place] [address] Apr, [facility] [address] [id number] [address] [place] [address], [place] [address] Apr, [facility] [address] [id number] [address] [place] [address], [place] [address] Apr, [facility] [address] [id number] [address] [place] [address], [place] [address] Mar, 2014 [facility] [address] [id number] [address] [place] [address], [place] [address] Mar, 2014 [facility] [address] [id number] [address] [place] [address], [place] [address] Mar, 2014 [facility] [address] [id number] [address] [place] [address], [place] [address] Mar, [facility] [address] [id number] [address] [place] [address], [place] [address] Aug, [facility] [address] [id number] [address] [place] [address], [place] [address] Aug, [facility] [address] [id number] [address] [place] [address], [place] [address] Apr, [facility] [address] [id number] [address] [place] [address], [place] [address] Apr, [facility] [address] [id number] [address] [place] [address], [place] [address] Mar, [facility] [address] [id number] [address] [place] [address], [place] [address] Mar, [facility] [address] [id number] [address] [place] [address], [place] [address] Feb, [facility] [address] [id number] [address] [place] [address], [place] [address] Feb, [facility] [address] [id number] [address] [place] [address], [place] [address] Feb, [facility] [address] [id number] [address] [place] [address], [place] [address] Feb, [facility] [address] [id number] [address] [place] [address], [place] [address] Oct, [facility] [address] [id number] [address] [place] [address], [place] [address] Sep, [facility] [address] [id number] [address] [place] [address], [place] [address] Aug, [facility] [address] [id number] [address] [place] [address], [place] [address] May, [facility] [address] [id number] [address] [place] [address], [place] [address] Apr, [facility] [address] [id number] [address] [place] [address], [place] [address] Mar, [facility] [address] [id number] [address] [place] [address], [place] [address] Mar, [facility] [address] [id number] [address] [place] [address], [place] [address] Feb, [facility] [address] [id number] [address] [place] [address], [place] [address] Jan, [facility] [address] [id number] [address] [place] [address], [place] [address] Jan, [facility] [address] [id number] [address] [place] [phone] Dec, [facility] [address] [id number] [address] [place] [address], [place] [address] Dec, [facility] [address] [id number] [address] [place] [address], [place] [address] Nov, [facility] [address] [id number] [address] [place] [address], [place] [address] Nov, [facility] [address] [id number] [address] [place] [address], [place] [address] Oct, [facility] [address] [id number] [address] [place] [address], [place] [address] Sep, [facility] [address] [id number] [address] [place] [address], [place] [address] Sep, [facility] [address] [id number] [address] [place] [address], [place] [address] Aug, [facility] [address] [id number] [address] [place] [address], [place] [address] Aug, [facility] [address] [id number] [address] [place] [address], [place] [address] Jul, [facility] [address] [id number] [address] [place] [address], [place] [address] Jul, [facility] [address] [id number] [address] [place] [address], [place] [address] June, [facility] [address] [id number] [address] [place] [address], [place] [address] June, [facility] [address] [id number] [address] [place] [address], [place] [address] May, [facility] [address] [id number] [address] [place] [address], [place] [address] May, [facility] [address] [id number] [address] [place] [address], [place] [address] May, [facility] [address] [id number] [address] [place] [address], [place] [address] Apr, [facility] [address] [id number] [address] [place] [address], [place] [address] Apr, [facility] [address] [id number] [address] [place] [address], [place] [address] Mar, [facility] [address] [id number] [address] [place] [address], [place] [address] Feb, [facility] [address] [facility] [id number] [address] [place] [address] Feb, [facility] [address] [facility] [id number] [address] [place] [address] Dec, [facility] [address] [facility] [id number] [address] [place] [address] Nov, IMMUNIZATIONS No Known Immunizations SOCIAL HISTORY Never Assessed REASON FOR VISIT PLAN OF CARE VITAL SIGNS MEDICATIONS Unknown Medications RESULTS No Results PROCEDURES Procedure Date Ordered Result Body Site PSYTX PT&/FAMILY 45 MINUTES Oct 20, 2012 INSTRUCTIONS MEDICATIONS ADMINISTERED No Known Medications
--- OUTSIDE RECORDS SUMMARY | 2019-09-10 15:38 | XMS REPORT | Clinical Summary ---
Author Author [facility] Organization [facility] Address Unknown Phone Unavailable Care Team Providers Care Cork Tile Floor Layer Name Role Phone Leeanne Seaman NP Unavailable Jaylon Adler MD PCP Hrariet Hope Unavailable Outpatient, Radiologist Unavailable Unavailable Ester Lind LPN Unavailable Unavailable Red Martínez MD Unavailable Source Comments Some departments are not documenting in the electronic medical record. If you d o not see the information that you expected, contact Release of Information in [facility] code-laboration Information Management department at [phone] for further assistan ce in locating additional records.[facility] Allergies Comments Active Allergy Reactions Severity Noted Date Codeine NAUSEA AND 10/10/2010 VOMITING Medications End Date Status Medication Sig Dispensed Refills Start Date Active ibuprofen (MOTRIN) 200 mg Take 200 mg 0 tablet by mouth every 6 hours as needed for Pain. Active cetirizine (ZYRTEC) 10 mg Take 10 mg by 0 tablet mouth as Needed for Allergy symptoms. Active sertraline (ZOLOFT) 100 Take 1 tablet 30 tablet 0 08/24/201 mg tablet by mouth 8 every morning. Please make appointment for further refills. 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 Resolved Problems Problem Noted Date Resolved Date Mood disorder 09/12/2015 07/22/2016 Nonintractable headache 02/22/2015 09/27/2016 Family History Medical History Relation Name Comments Cancer Father Hypertension Mother Relation Name Status Comments Father Alive Mother Social History Date Tobacco Use Types Packs/Day Years Used Never Smoker Drinks/Week oz/Week Comments Alcohol Use 0 Standard drinks or equivalent 0.0 Not Asked Sex Assigned at Date Recorded Not on file Industry Job Start Date Occupation Not on file Not on file Not on file Travel End Travel History Travel Start No recent travel history available. Last Filed Vital Signs Reading Time Taken Comments Vital Sign 121/79 09/04/2015 2:34 PM CDT Blood Pressure 91 09/04/2015 2:34 PM CDT Pulse - - Temperature - - Respiratory Rate - - Oxygen Saturation - - Inhaled Oxygen Concentration 64.5 kg (142 lb 3.2 oz) 07/22/2016 2:53 PM CDT Weight 182.9 cm (6') 09/04/2015 2:34 PM CDT Height 19.29 09/04/2015 2:34 PM CDT Body Mass Index Plan of Treatment Health Maintenance Due Date Last Done Comments HIV SCREENING 1976 DTAP/TDAP VACCINES (1 - 09/17/1979 Tdap) HEPATITIS C SCREENING 09/17/1979 PHYSICAL (COMPREHENSIVE) 09/17/1979 EXAM COLORECTAL CANCER 09/17/2011 SCREENING SHINGLES RECOMBINANT 09/17/2011 VACCINE (1 of 2) INFLUENZA VACCINE 11/09/2019 Results Not on filefrom Last 3 Months Insurance Type Payer Benefit Subscriber ID Effective Phone Address Plan / Dates Group PPO [facility] xxxxxxxxxxxx 2016-P PREF CARE resent BLUE [id number] Advance Directives Patient Tile Inspector Explanation Type Date Recorded Perceptive Content Scan Advance 03/07/2015 1:11 PM Directive/DPOA
--- OUTSIDE RECORDS SUMMARY | 2019-09-10 15:39 | XMS REPORT ---
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 Name Role Phone KENIA BURNETT Unavailable PROBLEMS Type Condition ICD9-CM Code [id number] Code Onset Dates Condition S tatus SNOMED Code Problem Anxiety disorder, unspecified F41.9 Active [id number] ALLERGIES No Information ENCOUNTERS Encounter Location Date Diagnosis [place] [address] [address] June, Anxiety disorder, unspecified F41.9 [place] [address] [address] May, Anxiety disorder, unspecified F41.9 [place] [address] [address] Apr, Anxiety disorder, unspecified F41.9 [place] [address] [address] Apr, [place] [address] [address] Feb, Anxiety disorder, unspecified F41.9 [place] [address] [address] Jan, Anxiety disorder, unspecified F41.9 [place] [address] [address] Dec, Anxiety disorder, unspecified F41.9 [place] [address] [address] Nov, Anxiety disorder, unspecified F41.9 [place] [address] [address] Oct, Anxiety disorder, unspecified F41.9 [facility] [address] [address] Sep, Anxiety disorder, unspecified F41.9 [facility] [address] [address] Aug, Anxiety disorder, unspecified F41.9 [facility] [address] [address] Jul, Anxiety disorder, unspecified F41.9 [facility] [address] [address] June, Anxiety disorder, unspecified F41.9 [facility] [address] [address] May, Anxiety disorder, unspecified F41.9 [facility] [address] [address] May, Anxiety disorder, unspecified F41.9 [facility] [address] [address] Feb, Anxiety disorder, unspecified F41.9 [facility] [address] [address] May, Anxiety disorder, unspecified F41.9 [facility] [address] [address] Apr, Anxiety disorder, unspecified F41.9 [facility] [address] [address] Mar, Anxiety disorder, unspecified F41.9 [facility] [address] [address] Oct, Anxiety disorder, unspecified F41.9 [facility] [address] [address] Oct, Anxiety disorder, unspecified F41.9 [facility] [address] [address] Aug, Anxiety disorder, unspecified F41.9 [facility] [address] [place] [id number] [place] [address] Jul, Anxiety disorder, unspecified F41.9 [facility] [address] [place] [id number] [place] [address] Jul, Anxiety disorder, unspecified F41.9 [facility] [address] [address] June, Anxiety disorder, unspecified F41.9 [facility] [address] [address] June, Anxiety disorder, unspecified F41.9 [facility] [address] [address] May, Anxiety disorder, unspecified F41.9 [facility] [address] [address] Apr, Anxiety disorder, unspecified F41.9 [facility] [address] [address] Apr, Anxiety disorder, unspecified F41.9 [facility] [address] [place] [id number] [place] [address] Mar, Anxiety disorder, unspecified F41.9 [facility] [address] [place] [id number] [place] [address] Feb, Anxiety disorder, unspecified F41.9 [facility] [address] [place] [id number] [place] [address] Jan, Anxiety disorder, unspecified F41.9 [facility] [address] [address] Dec, Anxiety disorder, unspecified F41.9 [facility] [address] [place] [id number] [place] [address] Nov, Anxiety disorder, unspecified F41.9 [facility] [address] [place] [address] Oct, Anxiety disorder, unspecified 300.00 [facility] [address] [place] [id number] [place] [address] Oct, Anxiety disorder, unspecified 300.00 [facility] [address] [place] [id number] [place] [address] Sep, Anxiety disorder, unspecified 300.00 [facility] [address] [place] [id number] [place] [address] Sep, Anxiety disorder, unspecified 300.00 [facility] [address] [place] [id number] [place] [address] Sep, Anxiety disorder, unspecified 300.00 [facility] [address] [place] [id number] [place] [address] Sep, Anxiety disorder, unspecified 300.00 [facility] [address] [place] [id number] [place] [address] Aug, Anxiety disorder, unspecified 300.00 [facility] [address] [place] [id number] [place] [address] June, Anxiety disorder, unspecified 300.00 [facility] [address] [place] [id number] [place] [address] Apr, [facility] [address] [place] [id number] [place] [address] Apr, [facility] [address] [place] [id number] [place] [address] Apr, [facility] [address] [place] [id number] [place] [address] Apr, [facility] [address] [place] [id number] [place] [address] Mar, [facility] [address] [place] [id number] [place] [address] Mar, [facility] [address] [address] Mar, [facility] [address] [facility] [id number] [place] [address] Mar, [facility] [address] [facility] [id number] [place] [address] Aug, [facility] [address] [facility] [id number] [place] [address] Aug, [facility] [address] [facility] [id number] [place] [address] Apr, [facility] [address] [facility] [id number] [place] [address] Apr, [facility] [address] [facility] [id number] [place] [address] Mar, [facility] [address] [facility] [id number] [place] [address] Mar, [facility] [address] [facility] [id number] [place] [address] Feb, [facility] [address] [facility] [id number] [place] [address] Feb, [facility] [address] [facility] [id number] [place] [address] Feb, [facility] [address] [facility] [id number] [place] [address] Feb, [facility] [address] [facility] [id number] [place] [address] Oct, [facility] [address] [facility] [id number] [place] [address] Sep, [facility] [address] [facility] [id number] [place] [address] Aug, [facility] [address] [facility] [id number] [place] [address] May, [facility] [address] [facility] [id number] [place] [address] Apr, [facility] [address] [facility] [id number] [place] [address] Mar, [facility] [address] [facility] [id number] [place] [address] Mar, [facility] [address] [facility] [id number] [place] [address] Feb, [facility] [address] [facility] [id number] [place] [address] Jan, [facility] [address] [facility] [id number] [place] [address] Jan, [facility] [address] [facility] [id number] [place] [address] Dec, [facility] [address] [facility] [id number] [place] [address] Dec, [facility] [address] [place] [id number] [place] [address] Nov, [facility] [address] [place] [id number] [place] [address] Nov, [facility] [address] [facility] [id number] [place] [address] Oct, [facility] [address] [facility] [id number] [place] [address] Sep, [facility] [address] [facility] [id number] [place] [address] Sep, [facility] [address] [facility] [id number] [place] [address] Aug, [facility] [address] [facility] [id number] [place] [address] Aug, [facility] [address] [place] [id number] [place] [address] Jul, [facility] [address] [facility] [id number] [place] [address] Jul, [facility] [address] [facility] [id number] [place] [address] June, [facility] [address] [facility] [id number] [place] [address] June, [facility] [address] [facility] [id number] [place] [address] May, [facility] [address] [facility] [id number] [place] [address] May, [facility] [address] [facility] [id number] [place] [address] May, [facility] [address] [place] [id number] [place] [address] Apr, [facility] [address] [facility] [id number] [place] [address] Apr, [facility] [address] [facility] [id number] [place] [address] Mar, [facility] [address] [facility] [id number] [place] [address] Feb, [facility] [address] [facility] [id number] [place] [address] Feb, [facility] [address] [facility] [id number] [place] [address] Dec, [facility] [address] [facility] [id number] [place] [address] Nov, IMMUNIZATIONS No Known Immunizations SOCIAL HISTORY Never Assessed REASON FOR VISIT PLAN OF CARE VITAL SIGNS MEDICATIONS Unknown Medications RESULTS No Results PROCEDURES No Known procedures INSTRUCTIONS MEDICATIONS ADMINISTERED No Known Medications
--- OUTSIDE RECORDS SUMMARY | 2019-09-10 15:39 | XMS REPORT ---
Author Author Aneesh JOSE Organization [facility] Address [address] [place] [address] Care Team Providers Care Welt Slasher Name Role Phone DAMON MIRA Unavailable PROBLEMS Type Condition ICD9-CM Code [id number] Code Onset Dates Condition S tatus SNOMED Code Problem Anxiety disorder, unspecified F41.9 Active [id number] ALLERGIES No Information ENCOUNTERS Encounter Location Date Diagnosis [place] [address] [place] [id number] [address] [place] [phone] June, Anxiety disorder, unspecifie d F41.9 [place] [address] [place] [id number] [address] [place] [address] May, Anxiety disorder, unspecifie d F41.9 [facility] [address] [place] [place] [id number] [address] [place] [address] Apr, Anxiety disorder, unspecifie d F41.9 [place] [address] [place] [id number] [address] [place] [phone] Apr, [facility] [address] [id number] [address] [place] [address] Feb, Anxiety disorder, unspecifie d F41.9 [facility] [address] [id number] [address] [place] [address] Jan, Anxiety disorder, unspecifie d F41.9 [facility] [address] [id number] [address] [place] [address] Dec, Anxiety disorder, unspecifie d F41.9 [facility] [address] [place] [id number] [address] [place] [phone] Nov, Anxiety disorder, unspecifie d F41.9 [place] [id number] [facility] [id number] [address] [place] [phone] Oct, Anxiety disorder, unspecifie d F41.9 [facility] [address] [facility] [id number] [address] [place] [phone] Sep, Anxiety disorder, unspecifie d F41.9 [facility] [address] [facility] [id number] [address] [place] [address] Aug, Anxiety disorder, unspecifie d F41.9 [facility] [address] [facility] [id number] [address] [place] [address] Jul, Anxiety disorder, unspecifie d F41.9 [facility] [address] [facility] [id number] [address] [place] [address] June, Anxiety disorder, unspecifie d F41.9 [facility] [address] [facility] [id number] [address] [place] [address] May, Anxiety disorder, unspecifie d F41.9 [facility] [address] [facility] [id number] [address] [place] [address] May, Anxiety disorder, unspecifie d F41.9 [facility] [address] [facility] [id number] [address] [place] [phone] Feb, Anxiety disorder, unspecifie d F41.9 [facility] [address] [facility] [id number] [address] [place] [address] May, Anxiety disorder, unspecifie d F41.9 [facility] [address] [facility] [id number] [address] [place] [phone] Apr, Anxiety disorder, unspecifie d F41.9 [facility] [address] [facility] [id number] [address] [place] [address] Mar, Anxiety disorder, unspecifie d F41.9 [facility] [address] [facility] [id number] [address] [place] [phone] Oct, Anxiety disorder, unspecifie d F41.9 [facility] [address] [id number] [address] [place] [address] Oct, Anxiety disorder, unspecifie d F41.9 [facility] [address] [id number] [address] [place] [phone] Aug, Anxiety disorder, unspecifie d F41.9 [facility] [address] [id number] [address] [place] [phone] Jul, Anxiety disorder, unspecifie d F41.9 [facility] [address] [id number] [address] [place] [address] Jul, Anxiety disorder, unspecifie d F41.9 [facility] [address] [facility] [id number] [address] [place] [address] June, Anxiety disorder, unspecifie d F41.9 [facility] [address] [facility] [id number] [address] [place] [phone] June, Anxiety disorder, unspecifie d F41.9 [facility] [address] [facility] [id number] [address] [place] [phone] May, Anxiety disorder, unspecifie d F41.9 [facility] [address] [facility] [id number] [address] [place] [phone] Apr, Anxiety disorder, unspecifie d F41.9 [facility] [address] [facility] [id number] [address] [place] [address] Apr, Anxiety disorder, unspecifie d F41.9 [facility] [address] [facility] [id number] [address] [place] [phone] Mar, Anxiety disorder, unspecifie d F41.9 [facility] [address] [facility] [id number] [address] [place] [phone] Feb, Anxiety disorder, unspecifie d F41.9 [facility] [address] [place] [id number] [address] [place] [address] Jan, Anxiety disorder, unspecifie d F41.9 [facility] [address] [place] [place] [id number] [address] [place] [address] Dec, Anxiety disorder, unspecifie d F41.9 [facility] [address] [place] [place] [id number] [address] [place] [address] Nov, Anxiety disorder, unspecifie d F41.9 [facility] [address] [place] [place] [id number] [address] [place] [address] Oct, Anxiety disorder, unspecifie d 300.00 [facility] [address] [address] Oct, Anxiety disorder, unspecifie d 300.00 [facility] [address] [place] [place] [id number] [address] [place] [address] Sep, Anxiety disorder, unspecifie d 300.00 [facility] [address] [place] [place] [id number] [address] [place] [address] Sep, Anxiety disorder, unspecifie d 300.00 [facility] [address] [place] [place] [id number] [address] [place] [address] Sep, Anxiety disorder, unspecifie d 300.00 [facility] [address] [place] [id number] [address] [place] [address] Sep, Anxiety disorder, unspecifie d 300.00 [facility] [address] [place] [place] [id number] [address] [place] [address] Aug, Anxiety disorder, unspecifie d 300.00 [facility] [address] [place] [place] [id number] [address] [place] [address] June, Anxiety disorder, unspecifie d 300.00 [facility] [address] [place] [id number] [address] [place] [address] Apr, [facility] [address] [id number] [address] [place] [address], [place] [address] Apr, [facility] [address] [id number] [address] [place] [address], [place] [address] Apr, [facility] [address] [id number] [address] [place] [address], [place] [address] Apr, [facility] [address] [id number] [address] [place] [address], [place] [address] Mar, 2014 [facility] [address] [id number] [address] [place] [address], [place] [address] Mar, 2014 [facility] [address] [id number] [address] [place] [address], [place] [address] Mar, 2014 [facility] [address] [id number] [address] [place] [address], [place] [address] Mar, [facility] [address] [id number] [address] [place] [address], [place] [address] Aug, [facility] [address] [id number] [address] [place] [address], [place] [address] Aug, [facility] [address] [id number] [address] [place] [address], [place] [address] Apr, [facility] [address] [id number] [address] [place] [address], [place] [address] Apr, [facility] [address] [id number] [address] [place] [address], [place] [address] Mar, [facility] [address] [id number] [address] [place] [address], [place] [address] Mar, [facility] [address] [id number] [address] [place] [address], [place] [address] Feb, [facility] [address] [id number] [address] [place] [address], [place] [address] Feb, [facility] [address] [id number] [address] [place] [address], [place] [address] Feb, [facility] [address] [id number] [address] [place] [address], [place] [address] Feb, [facility] [address] [id number] [address] [place] [address], [place] [address] Oct, [facility] [address] [id number] [address] [place] [address], [place] [address] Sep, [facility] [address] [id number] [address] [place] [address], [place] [address] Aug, [facility] [address] [id number] [address] [place] [address], [place] [address] May, [facility] [address] [id number] [address] [place] [address], [place] [address] Apr, [facility] [address] [id number] [address] [place] [address], [place] [address] Mar, [facility] [address] [id number] [address] [place] [address], [place] [address] Mar, [facility] [address] [id number] [address] [place] [address], [place] [address] Feb, [facility] [address] [id number] [address] [place] [address], [place] [address] Jan, [facility] [address] [id number] [address] [place] [address], [place] [address] Jan, [facility] [address] [id number] [address] [place] [phone] Dec, [facility] [address] [id number] [address] [place] [address], [place] [address] Dec, [facility] [address] [id number] [address] [place] [address], [place] [address] Nov, [facility] [address] [id number] [address] [place] [address], [place] [address] Nov, [facility] [address] [id number] [address] [place] [address], [place] [address] Oct, [facility] [address] [id number] [address] [place] [address], [place] [address] Sep, [facility] [address] [id number] [address] [place] [address], [place] [address] Sep, [facility] [address] [id number] [address] [place] [address], [place] [address] Aug, [facility] [address] [id number] [address] [place] [address], [place] [address] Aug, [facility] [address] [id number] [address] [place] [address], [place] [address] Jul, [facility] [address] [id number] [address] [place] [address], [place] [address] Jul, [facility] [address] [id number] [address] [place] [address], [place] [address] June, [facility] [address] [id number] [address] [place] [address], [place] [address] June, [facility] [address] [id number] [address] [place] [address], [place] [address] May, [facility] [address] [id number] [address] [place] [address], [place] [address] May, [facility] [address] [id number] [address] [place] [address], [place] [address] May, [facility] [address] [id number] [address] [place] [address], [place] [address] Apr, [facility] [address] [id number] [address] [place] [address], [place] [address] Apr, [facility] [address] [id number] [address] [place] [address], [place] [address] Mar, [facility] [address] [id number] [address] [place] [address], [place] [address] Feb, [facility] [address] [facility] [id number] [address] [place] [phone] Feb, [facility] [address] [facility] [id number] [address] [place] [phone] Dec, [facility] [address] [facility] [id number] [address] [place] [address] Nov, IMMUNIZATIONS No Known Immunizations SOCIAL HISTORY Never Assessed REASON FOR VISIT PLAN OF CARE VITAL SIGNS MEDICATIONS Unknown Medications RESULTS No Results PROCEDURES No Known procedures INSTRUCTIONS MEDICATIONS ADMINISTERED No Known Medications
--- OUTSIDE RECORDS SUMMARY | 2019-09-10 15:39 | XMS REPORT ---
Author Author Aneesh JOSE Organization [facility] Address [address] [place] [address] Care Team Providers Care Supervisor Felting Name Role Phone DAMON MIRA Unavailable PROBLEMS Type Condition ICD9-CM Code [id number] Code Onset Dates Condition S tatus SNOMED Code Problem Anxiety disorder, unspecified F41.9 Active [id number] ALLERGIES No Information ENCOUNTERS Encounter Location Date Diagnosis [place] [address] [place] [id number] [place] [address] June, Anxiety disorder, unspecifie d F41.9 [place] [address] [place] [id number] [place] [address] May, Anxiety disorder, unspecifie d F41.9 [facility] [address] [place] [id number] [place] [address] Apr, Anxiety disorder, unspecifie d F41.9 [place] [address] [place] [id number] [place] [address] Apr, [facility] [address] [place] [place] [id number] [place] [address] Feb, Anxiety disorder, unspecifie d F41.9 [facility] [address] [place] [id number] [place] [address] Jan, Anxiety disorder, unspecifie d F41.9 [facility] [address] [place] [id number] [place] [address] Dec, Anxiety disorder, unspecifie d F41.9 [facility] [address] [place] [id number] [place] [address] Nov, Anxiety disorder, unspecifie d F41.9 [place] [address] [facility] [id number] [address] [place] [address] Oct, Anxiety disorder, unspecifie d F41.9 [facility] [address] [facility] [id number] [address] [place] [address] Sep, Anxiety disorder, unspecifie d F41.9 [facility] [address] [facility] [id number] [address] [place] [address] Aug, Anxiety disorder, unspecifie d F41.9 [facility] [address] [facility] [id number] [address] [place] [address] Jul, Anxiety disorder, unspecifie d F41.9 [facility] [address] [facility] [id number] [address] [place] [phone] June, Anxiety disorder, unspecifie d F41.9 [facility] [address] [facility] [id number] [address] [place] [address] May, Anxiety disorder, unspecifie d F41.9 [facility] [address] [facility] [id number] [address] [place] [address] May, Anxiety disorder, unspecifie d F41.9 [facility] [address] [facility] [id number] [address] [place] [address] Feb, Anxiety disorder, unspecifie d F41.9 [facility] [address] [facility] [id number] [address] [place] [address] May, Anxiety disorder, unspecifie d F41.9 [facility] [address] [facility] [id number] [address] [place] [address] Apr, Anxiety disorder, unspecifie d F41.9 [facility] [address] [facility] [id number] [address] [place] [phone] Mar, Anxiety disorder, unspecifie d F41.9 [facility] [address] [facility] [id number] [address] [place] [phone] Oct, Anxiety disorder, unspecifie d F41.9 [facility] [address] [id number] [address] [place] [address] Oct, Anxiety disorder, unspecifie d F41.9 [facility] [address] [id number] [address] [place] [phone] Aug, Anxiety disorder, unspecifie d F41.9 [facility] [address] [id number] [address] [place] [id number] Jul, Anxiety disorder, unspecifie d F41.9 [facility] [address] [id number] [address] [place] [address] Jul, Anxiety disorder, unspecifie d F41.9 [facility] [address] [facility] [id number] [address] [place] [address] June, Anxiety disorder, unspecifie d F41.9 [facility] [address] [facility] [id number] [address] [place] [address] June, Anxiety disorder, unspecifie d F41.9 [facility] [address] [facility] [id number] [address] [place] [address] May, Anxiety disorder, unspecifie d F41.9 [facility] [address] [facility] [id number] [address] [place] [phone] Apr, Anxiety disorder, unspecifie d F41.9 [facility] [address] [facility] [id number] [address] [place] [phone] Apr, Anxiety disorder, unspecifie d F41.9 [facility] [address] [facility] [id number] [address] [place] [address] Mar, Anxiety disorder, unspecifie d F41.9 [facility] [address] [facility] [id number] [address] [place] [phone] Feb, Anxiety disorder, unspecifie d F41.9 [facility] [address] [place] [id number] [place] [address] Jan, Anxiety disorder, unspecifie d F41.9 [facility] [address] [place] [id number] [address] [place] [address] Dec, Anxiety disorder, unspecifie d F41.9 [facility] [address] [place] [id number] [address] [place] [address] Nov, Anxiety disorder, unspecifie d F41.9 [facility] [address] [place] [id number] [address] [place] [address] Oct, Anxiety disorder, unspecifie d 300.00 [facility] [address] [address] Oct, Anxiety disorder, unspecifie d 300.00 [facility] [address] [place] [id number] [address] [place] [address] Sep, Anxiety disorder, unspecifie d 300.00 [facility] [address] [place] [id number] [address] [place] [address] Sep, Anxiety disorder, unspecifie d 300.00 [facility] [address] [place] [id number] [address] [place] [address] Sep, Anxiety disorder, unspecifie d 300.00 [facility] [address] [place] [id number] [address] [place] [address] Sep, Anxiety disorder, unspecifie d 300.00 [facility] [address] [place] [id number] [address] [place] [phone] Aug, Anxiety disorder, unspecifie d 300.00 [facility] [address] [place] [id number] [place] [phone] June, Anxiety disorder, unspecifie d 300.00 [facility] [address] [place] [id number] [place] [phone] Apr, [facility] [address] [id number] [address] [place] [address], [place] [address] Apr, [facility] [address] [id number] [address] [place] [address], [place] [address] Apr, [facility] [address] [id number] [address] [place] [address], [place] [address] Apr, [facility] [address] [id number] [address] [place] [address], [place] [address] Mar, 2014 [facility] [address] [id number] [address] [place] [address], [place] [address] Mar, 2014 [facility] [address] [id number] [address] [place] [address], [place] [address] Mar, 2014 [facility] [address] [id number] [address] [place] [address], [place] [address] Mar, [facility] [address] [id number] [address] [place] [address], [place] [address] Aug, [facility] [address] [id number] [address] [place] [address], [place] [address] Aug, [facility] [address] [id number] [address] [place] [address], [place] [address] Apr, [facility] [address] [id number] [address] [place] [address], [place] [address] Apr, [facility] [address] [id number] [address] [place] [address], [place] [address] Mar, [facility] [address] [id number] [address] [place] [address], [place] [address] Mar, [facility] [address] [id number] [address] [place] [address], [place] [address] Feb, [facility] [address] [id number] [address] [place] [address], [place] [address] Feb, [facility] [address] [id number] [address] [place] [address], [place] [address] Feb, [facility] [address] [id number] [address] [place] [address], [place] [address] Feb, [facility] [address] [id number] [address] [place] [address], [place] [address] Oct, [facility] [address] [id number] [address] [place] [address], [place] [address] Sep, [facility] [address] [id number] [address] [place] [address], [place] [address] Aug, [facility] [address] [id number] [address] [place] [address], [place] [address] May, [facility] [address] [id number] [address] [place] [address], [place] [address] Apr, [facility] [address] [id number] [address] [place] [address], [place] [address] Mar, [facility] [address] [id number] [address] [place] [address], [place] [address] Mar, [facility] [address] [id number] [address] [place] [address], [place] [address] Feb, [facility] [address] [id number] [address] [place] [address], [place] [address] Jan, [facility] [address] [id number] [address] [place] [address], [place] [address] Jan, [facility] [address] [id number] [address] [place] [address] Dec, [facility] [address] [id number] [address] [place] [address], [place] [address] Dec, [facility] [address] [id number] [address] [place] [address], [place] [address] Nov, [facility] [address] [id number] [address] [place] [address], [place] [address] Nov, [facility] [address] [id number] [address] [place] [address], [place] [address] Oct, [facility] [address] [id number] [address] [place] [address], [place] [address] Sep, [facility] [address] [id number] [address] [place] [address], [place] [address] Sep, [facility] [address] [id number] [address] [place] [address], [place] [address] Aug, [facility] [address] [id number] [address] [place] [address], [place] [address] Aug, [facility] [address] [id number] [address] [place] [address], [place] [address] Jul, [facility] [address] [id number] [address] [place] [address], [place] [address] Jul, [facility] [address] [id number] [address] [place] [address], [place] [address] June, [facility] [address] [id number] [address] [place] [address], [place] [address] June, [facility] [address] [id number] [address] [place] [address], [place] [address] May, [facility] [address] [id number] [address] [place] [address], [place] [address] May, [facility] [address] [id number] [address] [place] [address], [place] [address] May, [facility] [address] [id number] [address] [place] [address], [place] [address] Apr, [facility] [address] [id number] [address] [place] [address], [place] [address] Apr, [facility] [address] [id number] [address] [place] [address], [place] [address] Mar, [facility] [address] [id number] [address] [place] [address], [place] [address] Feb, [facility] [address] [facility] [id number] [address] [place] [address] Feb, [facility] [address] [facility] [id number] [address] [place] [address] Dec, [facility] [address] [facility] [id number] [address] [place] [address] Nov, IMMUNIZATIONS No Known Immunizations SOCIAL HISTORY Never Assessed REASON FOR VISIT PLAN OF CARE VITAL SIGNS MEDICATIONS Unknown Medications RESULTS No Results PROCEDURES Procedure Date Ordered Result Body Site PSYCH DIAGNOSTIC EVALUATION August 22, 2013 INSTRUCTIONS MEDICATIONS ADMINISTERED No Known Medications
--- OUTSIDE RECORDS SUMMARY | 2019-09-10 15:39 | XMS REPORT ---
Author Author Aneesh BURNETT [facility] Address [address] [place] [address] Care Team Providers Care Factory Engineer Name Role Phone KENIA BURNETT Unavailable PROBLEMS Type Condition ICD9-CM Code [id number] Code Onset Dates Condition S tatus SNOMED Code Problem Anxiety disorder, unspecified F41.9 Active [id number] ALLERGIES No Information ENCOUNTERS Encounter Location Date Diagnosis [place] [address] [address] June, Anxiety disorder, unspecified F41.9 [place] [address] [address] May, Anxiety disorder, unspecified F41.9 [place] [address] [address] Apr, Anxiety disorder, unspecified F41.9 [place] [address] [address] Apr, [place] [address] [address] Feb, Anxiety disorder, unspecified F41.9 [place] [address] [address] Jan, Anxiety disorder, unspecified F41.9 [place] [address] [address] Dec, Anxiety disorder, unspecified F41.9 [place] [address] [address] Nov, Anxiety disorder, unspecified F41.9 [place] [address] [address] Oct, Anxiety disorder, unspecified F41.9 [facility] [address] [address] Sep, Anxiety disorder, unspecified F41.9 [facility] [address] [address] Aug, Anxiety disorder, unspecified F41.9 [facility] [address] [address] Jul, Anxiety disorder, unspecified F41.9 [facility] [address] [address] June, Anxiety disorder, unspecified F41.9 [facility] [address] [address] May, Anxiety disorder, unspecified F41.9 [facility] [address] [address] May, Anxiety disorder, unspecified F41.9 [facility] [address] [address] Feb, Anxiety disorder, unspecified F41.9 [facility] [address] [address] May, Anxiety disorder, unspecified F41.9 [facility] [address] [address] Apr, Anxiety disorder, unspecified F41.9 [facility] [address] [address] Mar, Anxiety disorder, unspecified F41.9 [facility] [address] [address] Oct, Anxiety disorder, unspecified F41.9 [facility] [address] [address] Oct, Anxiety disorder, unspecified F41.9 [facility] [address] [address] Aug, Anxiety disorder, unspecified F41.9 [facility] [address] [place] [id number] [place] [address] Jul, Anxiety disorder, unspecified F41.9 [facility] [address] [place] [id number] [place] [address] Jul, Anxiety disorder, unspecified F41.9 [facility] [address] [address] June, Anxiety disorder, unspecified F41.9 [facility] [address] [address] June, Anxiety disorder, unspecified F41.9 [facility] [address] [address] May, Anxiety disorder, unspecified F41.9 [facility] [address] [address] Apr, Anxiety disorder, unspecified F41.9 [facility] [address] [address] Apr, Anxiety disorder, unspecified F41.9 [facility] [address] [place] [id number] [place] [address] Mar, Anxiety disorder, unspecified F41.9 [facility] [address] [place] [id number] [place] [address] Feb, Anxiety disorder, unspecified F41.9 [facility] [address] [place] [id number] [place] [address] Jan, Anxiety disorder, unspecified F41.9 [facility] [address] [address] Dec, Anxiety disorder, unspecified F41.9 [facility] [address] [place] [id number] [place] [address] Nov, Anxiety disorder, unspecified F41.9 [facility] [address] [place] [address] Oct, Anxiety disorder, unspecified 300.00 [facility] [address] [place] [id number] [place] [address] Oct, Anxiety disorder, unspecified 300.00 [facility] [address] [place] [id number] [place] [address] Sep, Anxiety disorder, unspecified 300.00 [facility] [address] [place] [id number] [place] [address] Sep, Anxiety disorder, unspecified 300.00 [facility] [address] [place] [id number] [place] [address] Sep, Anxiety disorder, unspecified 300.00 [facility] [address] [place] [id number] [place] [address] Sep, Anxiety disorder, unspecified 300.00 [facility] [address] [place] [id number] [place] [address] Aug, Anxiety disorder, unspecified 300.00 [facility] [address] [place] [id number] [place] [address] June, Anxiety disorder, unspecified 300.00 [facility] [address] [place] [id number] [place] [address] Apr, [facility] [address] [place] [id number] [place] [address] Apr, [facility] [address] [place] [id number] [place] [address] Apr, [facility] [address] [place] [id number] [place] [address] Apr, [facility] [address] [place] [id number] [place] [address] Mar, [facility] [address] [place] [id number] [place] [address] Mar, [facility] [address] [address] Mar, [facility] [address] [facility] [id number] [place] [address] Mar, [facility] [address] [facility] [id number] [facility] [address] Aug, [facility] [address] [id number] [place] [address] Aug, [facility] [address] [id number] [facility] [address] Apr, [facility] [address] [facility] [id number] [facility] [address] Apr, [facility] [address] [id number] [place] [address] Mar, [facility] [address] [id number] [place] [address] Mar, [facility] [address] [id number] [place] [address] Feb, [facility] [address] [id number] [place] [address] Feb, [facility] [address] [id number] [place] [address] Feb, [facility] [address] [id number] [place] [address] Feb, [facility] [address] [id number] [place] [address] Oct, [facility] [address] [id number] [place] [address] Sep, [facility] [address] [id number] [place] [address] Aug, [facility] [address] [id number] [place] [address] May, [facility] [address] [id number] [place] [address] Apr, [facility] [address] [id number] [facility] [address] Mar, [facility] [address] [id number] [place] [address] Mar, [facility] [address] [id number] [place] [address] Feb, [facility] [address] [id number] [place] [address] Jan, [facility] [address] [id number] [place] [address] Jan, [facility] [address] [id number] [place] [address] Dec, [facility] [address] [id number] [place] [address] Dec, [facility] [address] [place] [id number] [place] [address] Nov, [facility] [address] [place] [id number] [place] [address] Nov, [facility] [address] [id number] [place] [address] Oct, [facility] [address] [id number] [place] [address] Sep, [facility] [address] [id number] [place] [address] Sep, [facility] [address] [id number] [place] [address] Aug, [facility] [address] [id number] [place] [address] Aug, [facility] [address] [place] [id number] [place] [address] Jul, [facility] [address] [id number] [place] [address] Jul, [facility] [address] [id number] [place] [address] June, [facility] [address] [id number] [place] [address] June, [facility] [address] [id number] [place] [address] May, [facility] [address] [id number] [place] [address] May, [facility] [address] [id number] [place] [address] May, [facility] [address] [id number] [place] [address] Apr, [facility] [address] [id number] [place] [address] Apr, [facility] [address] [id number] [place] [address] Mar, [facility] [address] [id number] [place] [address] Feb, [facility] [address] [id number] [place] [address] Feb, [facility] [address] [id number] [place] [address] Dec, [facility] [address] [id number] [place] [address] Nov, IMMUNIZATIONS No Known Immunizations SOCIAL HISTORY Never Assessed REASON FOR VISIT PLAN OF CARE VITAL SIGNS MEDICATIONS Unknown Medications RESULTS No Results PROCEDURES Procedure Date Ordered Result Body Site RELATIONSHIP COUN Apr 06, 2013 INSTRUCTIONS MEDICATIONS ADMINISTERED No Known Medications
--- OUTSIDE RECORDS SUMMARY | 2019-09-10 15:39 | XMS REPORT ---
Author Author nAeesh BURNETT [facility] Address [address] [place] [address] Care Team Providers Care Manhole Stripper Name Role Phone KENIA BURNETT Unavailable PROBLEMS Type Condition ICD9-CM Code [id number] Code Onset Dates Condition S tatus SNOMED Code Problem Anxiety disorder, unspecified F41.9 Active [id number] ALLERGIES No Information ENCOUNTERS Encounter Location Date Diagnosis [place] [address] [address] June, Anxiety disorder, unspecified F41.9 [place] [address] [address] May, Anxiety disorder, unspecified F41.9 [place] [address] [address] Apr, Anxiety disorder, unspecified F41.9 [place] [address] [address] Apr, [place] [address] [address] Feb, Anxiety disorder, unspecified F41.9 [place] [address] [address] Jan, Anxiety disorder, unspecified F41.9 [place] [address] [address] Dec, Anxiety disorder, unspecified F41.9 [place] [address] [address] Nov, Anxiety disorder, unspecified F41.9 [place] [address] [address] Oct, Anxiety disorder, unspecified F41.9 [facility] [address] [address] Sep, Anxiety disorder, unspecified F41.9 [facility] [address] [address] Aug, Anxiety disorder, unspecified F41.9 [facility] [address] [address] Jul, Anxiety disorder, unspecified F41.9 [facility] [address] [address] June, Anxiety disorder, unspecified F41.9 [facility] [address] [address] May, Anxiety disorder, unspecified F41.9 [facility] [address] [address] May, Anxiety disorder, unspecified F41.9 [facility] [address] [address] Feb, Anxiety disorder, unspecified F41.9 [facility] [address] [address] May, Anxiety disorder, unspecified F41.9 [facility] [address] [address] Apr, Anxiety disorder, unspecified F41.9 [facility] [address] [address] Mar, Anxiety disorder, unspecified F41.9 [facility] [address] [address] Oct, Anxiety disorder, unspecified F41.9 [facility] [address] [address] Oct, Anxiety disorder, unspecified F41.9 [facility] [address] [address] Aug, Anxiety disorder, unspecified F41.9 [facility] [address] [place] [id number] [place] [address] Jul, Anxiety disorder, unspecified F41.9 [facility] [address] [place] [id number] [place] [address] Jul, Anxiety disorder, unspecified F41.9 [facility] [address] [address] June, Anxiety disorder, unspecified F41.9 [facility] [address] [address] June, Anxiety disorder, unspecified F41.9 [facility] [address] [address] May, Anxiety disorder, unspecified F41.9 [facility] [address] [address] Apr, Anxiety disorder, unspecified F41.9 [facility] [address] [address] Apr, Anxiety disorder, unspecified F41.9 [facility] [address] [place] [id number] [place] [address] Mar, Anxiety disorder, unspecified F41.9 [facility] [address] [place] [id number] [place] [address] Feb, Anxiety disorder, unspecified F41.9 [facility] [address] [place] [id number] [place] [address] Jan, Anxiety disorder, unspecified F41.9 [facility] [address] [address] Dec, Anxiety disorder, unspecified F41.9 [facility] [address] [place] [id number] [place] [address] Nov, Anxiety disorder, unspecified F41.9 [facility] [address] [place] [address] Oct, Anxiety disorder, unspecified 300.00 [facility] [address] [place] [id number] [place] [address] Oct, Anxiety disorder, unspecified 300.00 [facility] [address] [place] [id number] [place] [address] Sep, Anxiety disorder, unspecified 300.00 [facility] [address] [place] [id number] [place] [address] Sep, Anxiety disorder, unspecified 300.00 [facility] [address] [place] [id number] [place] [address] Sep, Anxiety disorder, unspecified 300.00 [facility] [address] [place] [id number] [place] [address] Sep, Anxiety disorder, unspecified 300.00 [facility] [address] [place] [id number] [place] [address] Aug, Anxiety disorder, unspecified 300.00 [facility] [address] [place] [id number] [place] [address] June, Anxiety disorder, unspecified 300.00 [facility] [address] [place] [id number] [place] [address] Apr, [facility] [address] [place] [id number] [place] [address] Apr, [facility] [address] [place] [id number] [place] [address] Apr, [facility] [address] [place] [id number] [place] [address] Apr, [facility] [address] [place] [id number] [place] [address] Mar, [facility] [address] [place] [id number] [place] [address] Mar, [facility] [address] [address] Mar, [facility] [address] [facility] [id number] [place] [address] Mar, [facility] [address] [facility] [id number] [facility] [place] [address] Aug, [facility] [address] [id number] [place] [address] Aug, [facility] [address] [id number] [facility] [place] [address] Apr, [facility] [address] [facility] [id number] [facility] [place] [address] Apr, [facility] [address] [id number] [place] [address] Mar, [facility] [address] [id number] [place] [address] Mar, [facility] [address] [id number] [place] [address] Feb, [facility] [address] [id number] [place] [address] Feb, [facility] [address] [id number] [place] [address] Feb, [facility] [address] [id number] [place] [address] Feb, [facility] [address] [id number] [place] [address] Oct, [facility] [address] [id number] [place] [address] Sep, [facility] [address] [id number] [place] [address] Aug, [facility] [address] [id number] [place] [address] May, [facility] [address] [id number] [place] [address] Apr, [facility] [address] [id number] [facility] [place] [address] Mar, [facility] [address] [id number] [place] [address] Mar, [facility] [address] [id number] [place] [address] Feb, [facility] [address] [id number] [place] [address] Jan, [facility] [address] [id number] [place] [address] Jan, [facility] [address] [id number] [place] [address] Dec, [facility] [address] [id number] [place] [address] Dec, [facility] [id number] [place] [address] Nov, [facility] [id number] [place] [address] Nov, [facility] [address] [id number] [place] [address] Oct, [facility] [address] [id number] [place] [address] Sep, [facility] [address] [id number] [place] [address] Sep, [facility] [address] [id number] [place] [address] Aug, [facility] [address] [id number] [place] [address] Aug, [facility] [address] [place] [id number] [place] [address] Jul, [facility] [address] [id number] [place] [address] Jul, [facility] [address] [id number] [place] [address] June, [facility] [address] [id number] [place] [address] June, [facility] [address] [id number] [place] [address] May, [facility] [address] [id number] [place] [address] May, [facility] [address] [id number] [place] [address] May, [facility] [address] [id number] [place] [address] Apr, [facility] [address] [id number] [place] [address] Apr, [facility] [address] [id number] [place] [address] Mar, [facility] [address] [id number] [place] [address] Feb, [facility] [address] [id number] [place] [address] Feb, [facility] [address] [id number] [place] [address] Dec, [facility] [address] [id number] [place] [address] Nov, IMMUNIZATIONS No Known Immunizations SOCIAL HISTORY Never Assessed REASON FOR VISIT PLAN OF CARE VITAL SIGNS MEDICATIONS Unknown Medications RESULTS No Results PROCEDURES Procedure Date Ordered Result Body Site RELATIONSHIP COUN Feb 13, 2013 INSTRUCTIONS MEDICATIONS ADMINISTERED No Known Medications
--- OUTSIDE RECORDS SUMMARY | 2019-09-10 15:39 | XMS REPORT ---
Author Author Aneesh BURNETT [facility] Address [address] [place] [address] Care Team Providers Care Air Quality Chemist Name Role Phone KENIA BURNETT Unavailable PROBLEMS Type Condition ICD9-CM Code [id number] Code Onset Dates Condition S tatus SNOMED Code Problem Anxiety disorder, unspecified F41.9 Active [id number] ALLERGIES No Information ENCOUNTERS Encounter Location Date Diagnosis [place] [address] [place] [id number] [address] [place] [id number] June, Anxiety disorder, unspecifie d F41.9 [place] [address] [id number] [address] [place] [address] May, Anxiety disorder, unspecifie d F41.9 [facility] [address] [id number] [address] [place] [id number] Apr, Anxiety disorder, unspecifie d F41.9 [place] [address] [id number] [address] [place] [id number] Apr, [facility] [address] [place] [address] [id number] [address] [place] [id number] Feb, Anxiety disorder, unspecifie d F41.9 [facility] [address] [id number] [address] [place] [id number] Jan, Anxiety disorder, unspecifie d F41.9 [facility] [address] [place] [id number] [address] [place] [address] Dec, Anxiety disorder, unspecifie d F41.9 [facility] [address] [place] [address] [id number] [address] [place] [address] Nov, Anxiety disorder, unspecifie d F41.9 [facility] [address] [facility] [id number] [address] [place] [id number] Oct, Anxiety disorder, unspecifie d F41.9 [facility] [address] [facility] [id number] [address] [place] [address] Sep, Anxiety disorder, unspecifie d F41.9 [facility] [address] [facility] [id number] [address] [place] [address] Aug, Anxiety disorder, unspecifie d F41.9 [facility] [address] [facility] [id number] [address] [place] [id number] Jul, Anxiety disorder, unspecifie d F41.9 [facility] [address] [facility] [id number] [address] [place] [id number] June, Anxiety disorder, unspecifie d F41.9 [facility] [address] [facility] [id number] [address] [place] [id number] May, Anxiety disorder, unspecifie d F41.9 [facility] [address] [facility] [id number] [address] [place] [id number] May, Anxiety disorder, unspecifie d F41.9 [facility] [address] [facility] [id number] [address] [place] [id number] Feb, Anxiety disorder, unspecifie d F41.9 [facility] [address] [facility] [id number] [address] [place] [id number] May, Anxiety disorder, unspecifie d F41.9 [facility] [address] [facility] [id number] [address] [place] [id number] Apr, Anxiety disorder, unspecifie d F41.9 [facility] [address] [facility] [id number] [address] [place] [id number] Mar, Anxiety disorder, unspecifie d F41.9 [facility] [address] [facility] [id number] [address] [place] [id number] Oct, Anxiety disorder, unspecifie d F41.9 [facility] [address] [facility] [id number] [address] [place] [id number] Oct, Anxiety disorder, unspecifie d F41.9 [facility] [address] [facility] [id number] [address] [place] [id number] Aug, Anxiety disorder, unspecifie d F41.9 [facility] [address] [facility] [id number] [address] [place] [phone] Jul, Anxiety disorder, unspecifie d F41.9 [facility] [address] [facility] [id number] [address] [place] [phone] Jul, Anxiety disorder, unspecifie d F41.9 [facility] [address] [facility] [id number] [address] [place] [phone] June, Anxiety disorder, unspecifie d F41.9 [facility] [address] [facility] [id number] [address] [place] [id number] June, Anxiety disorder, unspecifie d F41.9 [facility] [address] [facility] [id number] [address] [place] [phone] May, Anxiety disorder, unspecifie d F41.9 [facility] [address] [facility] [id number] [address] [place] [address] Apr, Anxiety disorder, unspecifie d F41.9 [facility] [address] [facility] [id number] [address] [place] [id number] Apr, Anxiety disorder, unspecifie d F41.9 [facility] [address] [facility] [id number] [address] [place] [id number] Mar, Anxiety disorder, unspecifie d F41.9 [facility] [address] [facility] [id number] [address] [place] [id number] Feb, Anxiety disorder, unspecifie d F41.9 [facility] [address] [place] [id number] [address] [place] [id number] Jan, Anxiety disorder, unspecifie d F41.9 [facility] [address] [address] [id number] [address] [place] [id number] Dec, Anxiety disorder, unspecifie d F41.9 [facility] [address] [address] [id number] [address] [place] [phone] Nov, Anxiety disorder, unspecifie d F41.9 [facility] [address] [id number] [address] [place] [id number] Oct, Anxiety disorder, unspecifie d 300.00 [facility] [address] [id number] [address] [place] [id number] Oct, Anxiety disorder, unspecifie d 300.00 [facility] [address] [id number] [address] [place] [id number] Sep, Anxiety disorder, unspecifie d 300.00 [facility] [address] [id number] [address] [place] [phone] Sep, Anxiety disorder, unspecifie d 300.00 [facility] [address] [id number] [address] [place] [id number] Sep, Anxiety disorder, unspecifie d 300.00 [facility] [id number] [place] [phone] Sep, Anxiety disorder, unspecifie d 300.00 [facility] [address] [id number] [address] [place] [id number] Aug, Anxiety disorder, unspecifie d 300.00 [facility] [address] [address] [id number] [address] [place] [id number] June, Anxiety disorder, unspecifie d 300.00 [facility] [address] [address] [id number] [address] [place] [phone] Apr, [facility] [address] [id number] [address] [place] [address], [place] [id number] 25 Apr, 2014 [facility] [address] [id number] [address] [place] [address], [place] [id number] Apr, [facility] [address] [id number] [address] [place] [address], [place] [address] Apr, [facility] [address] [id number] [address] [place] [address], [place] [address] Mar, 2014 [facility] [address] [id number] [address] [place] [address], [place] [address] Mar, 2014 [facility] [address] [id number] [address] [place] [address], [place] [address] Mar, 2014 [facility] [address] [id number] [address] [place] [address], [place] [id number] Mar, 2014 [facility] [address] [id number] [address] [place] [address], [place] [address] Aug, [facility] [address] [id number] [address] [place] [address], [place] [id number] Aug, [facility] [address] [id number] [address] [place] [address], [place] [address] Apr, [facility] [address] [id number] [address] [place] [address], [place] [address] Apr, [facility] [address] [id number] [address] [place] [address], [place] [address] Mar, [facility] [address] [id number] [address] [place] [address], [place] [address] Mar, [facility] [address] [id number] [address] [place] [address], [place] [id number] Feb, [facility] [address] [id number] [address] [place] [address], [place] [address] Feb, [facility] [address] [id number] [address] [place] [address] [address] Feb, [facility] [address] [id number] [address] [place] [address], [place] [address] Feb, [facility] [address] [id number] [address] [place] [address], [place] [address] Oct, [facility] [address] [id number] [address] [place] [address], [place] [address] Sep, [facility] [address] [id number] [address] [place] [address], [place] [address] Aug, [facility] [address] [id number] [address] [place] [address], [place] [address] May, [facility] [address] [id number] [address] [place] [address], [place] [address] Apr, [facility] [address] [id number] [address] [place] [address], [place] [address] Mar, [facility] [address] [id number] [address] [place] [address], [place] [address] Mar, [facility] [address] [id number] [address] [place] [address], [place] [address] Feb, [facility] [address] [id number] [address] [place] [address], [place] [address] Jan, [facility] [address] [id number] [address] [place] [address], [place] [address] Jan, [facility] [address] [id number] [address] [place] [address], [place] [address] Dec, [facility] [address] [id number] [address] [place] [address], [place] [address] Dec, [facility] [address] [id number] [address] [place] [address], [place] [address] Nov, [facility] [address] [id number] [address] [place] [address], [place] [address] Nov, [facility] [address] [id number] [address] [place] [address], [place] [address] Oct, [facility] [address] [id number] [address] [place] [address], [place] [address] Sep, [facility] [address] [id number] [address] [place] [address], [place] [address] Sep, [facility] [address] [id number] [address] [place] [address], [place] [address] Aug, [facility] [address] [id number] [address] [place] [address], [place] [address] Aug, [facility] [address] [id number] [address] [place] [address], [place] [address] Jul, [facility] [address] [id number] [address] [place] [address], [place] [address] Jul, [facility] [address] [id number] [address] [place] [address], [place] [address] June, [facility] [address] [id number] [address] [place] [address], [place] [address] June, [facility] [address] [id number] [address] [place] [address], [place] [address] May, [facility] [address] [id number] [address] [place] [address], [place] [address] May, [facility] [address] [id number] [address] [place] [address], [place] [address] May, [facility] [address] [id number] [address] [place] [address], [place] [address] Apr, [facility] [address] [id number] [address] [place] [address], [place] [address] Apr, [facility] [address] [id number] [address] [place] [address], [place] [address] Mar, [facility] [address] [id number] [address] [place] [address], [place] [address] Feb, [facility] [address] [facility] [id number] [address] [place] [id number] Feb, [facility] [address] [facility] [id number] [address] [place] [id number] Dec, [facility] [address] [facility] [id number] [address] [place] [id number] Nov, IMMUNIZATIONS No Known Immunizations SOCIAL HISTORY Never Assessed REASON FOR VISIT f/u PLAN OF CARE Activity Details Follow Up Next available Reason: F/U VITAL SIGNS MEDICATIONS Unknown Medications RESULTS No Results PROCEDURES Procedure Date Ordered Result Body Site Psychotherapy, patient and family, 45 minutes, establi shed patient April 22, 2018 INSTRUCTIONS MEDICATIONS ADMINISTERED No Known Medications
--- OUTSIDE RECORDS SUMMARY | 2019-09-10 15:39 | XMS REPORT ---
Author Author Aneesh BURNETT [facility] Address [address] [place] [address] Care Team Providers Care Personal Development Coach Name Role Phone KENIA BURNETT Unavailable PROBLEMS Type Condition ICD9-CM Code [id number] Code Onset Dates Condition S tatus SNOMED Code Problem Anxiety disorder, unspecified F41.9 Active [id number] ALLERGIES No Information ENCOUNTERS Encounter Location Date Diagnosis [place] [id number] [place] [phone] June, Anxiety disorder, unspecifie d F41.9 [place] [address] [id number] [place] [address] May, Anxiety disorder, unspecifie d F41.9 [facility] [id number] [place] [address] Apr, Anxiety disorder, unspecifie d F41.9 [place] [id number] [place] [phone] Apr, [facility] [id number] [address] [place] [address] Feb, Anxiety disorder, unspecifie d F41.9 [facility] [id number] [address] [place] [address] Jan, Anxiety disorder, unspecifie d F41.9 [facility] [id number] [address] [place] [address] Dec, Anxiety disorder, unspecifie d F41.9 [facility] [id number] [place] [address] Nov, Anxiety disorder, unspecifie d F41.9 [facility] [address] [facility] [id number] [address] [place] [address] Oct, Anxiety disorder, unspecifie d F41.9 [facility] [address] [facility] [id number] [address] [place] [address] Sep, Anxiety disorder, unspecifie d F41.9 [facility] [address] [facility] [id number] [address] [place] [phone] Aug, Anxiety disorder, unspecifie d F41.9 [facility] [address] [facility] [id number] [address] [place] [address] Jul, Anxiety disorder, unspecifie d F41.9 [facility] [address] [facility] [id number] [address] [place] [address] June, Anxiety disorder, unspecifie d F41.9 [facility] [address] [facility] [id number] [address] [place] [address] May, Anxiety disorder, unspecifie d F41.9 [facility] [address] [facility] [id number] [address] [place] [phone] May, Anxiety disorder, unspecifie d F41.9 [facility] [address] [facility] [id number] [address] [place] [address] Feb, Anxiety disorder, unspecifie d F41.9 [facility] [address] [facility] [id number] [address] [place] [phone] May, Anxiety disorder, unspecifie d F41.9 [facility] [address] [facility] [id number] [address] [place] [address] Apr, Anxiety disorder, unspecifie d F41.9 [facility] [address] [facility] [id number] [address] [place] [phone] Mar, Anxiety disorder, unspecifie d F41.9 [facility] [address] [facility] [id number] [address] [place] [address] Oct, Anxiety disorder, unspecifie d F41.9 [facility] [address] [facility] [id number] [address] [place] [phone] Oct, Anxiety disorder, unspecifie d F41.9 [facility] [address] [facility] [id number] [address] [place] [address] Aug, Anxiety disorder, unspecifie d F41.9 [facility] [address] [facility] [id number] [address] [place] [phone] Jul, Anxiety disorder, unspecifie d F41.9 [facility] [address] [facility] [id number] [address] [place] [address] Jul, Anxiety disorder, unspecifie d F41.9 [facility] [address] [facility] [id number] [address] [place] [address] June, Anxiety disorder, unspecifie d F41.9 [facility] [address] [facility] [id number] [address] [place] [phone] June, Anxiety disorder, unspecifie d F41.9 [facility] [address] [facility] [id number] [address] [place] [phone] May, Anxiety disorder, unspecifie d F41.9 [facility] [address] [facility] [id number] [address] [place] [phone] Apr, Anxiety disorder, unspecifie d F41.9 [facility] [address] [facility] [id number] [address] [place] [phone] Apr, Anxiety disorder, unspecifie d F41.9 [facility] [address] [facility] [id number] [address] [place] [address] Mar, Anxiety disorder, unspecifie d F41.9 [facility] [address] [facility] [id number] [address] [place] [phone] Feb, Anxiety disorder, unspecifie d F41.9 [facility] [address] [id number] [address] [place] [phone] Jan, Anxiety disorder, unspecifie d F41.9 [facility] [address] [id number] [address] [place] [address] Dec, Anxiety disorder, unspecifie d F41.9 [facility] [address] [id number] [address] [place] [address] Nov, Anxiety disorder, unspecifie d F41.9 [facility] [address] [id number] [address] [place] [phone] Oct, Anxiety disorder, unspecifie d 300.00 [facility] [address] [id number] [address] [place] [phone] Oct, Anxiety disorder, unspecifie d 300.00 [facility] [address] [id number] [address] [place] [address] Sep, Anxiety disorder, unspecifie d 300.00 [facility] [address] [id number] [address] [place] [phone] Sep, Anxiety disorder, unspecifie d 300.00 [facility] [address] [id number] [address] [place] [phone] Sep, Anxiety disorder, unspecifie d 300.00 [facility] [id number] [place] [phone] Sep, Anxiety disorder, unspecifie d 300.00 [facility] [id number] [address] [place] [phone] Aug, Anxiety disorder, unspecifie d 300.00 [facility] [id number] [address] [place] [phone] June, Anxiety disorder, unspecifie d 300.00 [facility] [address] [id number] [address] [place] [phone] Apr, [facility] [address] [id number] [address] [address], [place] [address] 25 Apr, 2014 [facility] [address] [id number] [address] [address], [place] [address] Apr, [facility] [address] [id number] [address] [address], [place] [address] Apr, [facility] [address] [id number] [address] [address], [place] [address] Mar, 2014 [facility] [address] [id number] [address] [place] [address], [place] [address] Mar, 2014 [facility] [address] [id number] [address] [place] [address], [place] [address] Mar, 2014 [facility] [address] [id number] [address] [address], [place] [address] Mar, 2014 [facility] [address] [id number] [address] [address], [place] [address] Aug, [facility] [address] [id number] [address] [place] [address], [place] [address] Aug, [facility] [address] [id number] [address] [place] [address], [place] [address] Apr, [facility] [address] [id number] [address] [place] [address], [place] [address] Apr, [facility] [address] [id number] [address] [place] [address], [place] [address] Mar, [facility] [address] [id number] [address] [place] [address], [place] [address] Mar, [facility] [address] [id number] [address] [place] [address], [place] [address] Feb, [facility] [address] [id number] [address] [place] [address], [place] [address] Feb, [facility] [address] [id number] [address] [place] [address] [address] Feb, [facility] [address] [id number] [address] [place] [address], [place] [address] Feb, [facility] [address] [id number] [address] [place] [address], [place] [address] Oct, [facility] [address] [id number] [address] [place] [address], [place] [address] Sep, [facility] [address] [id number] [address] [place] [address], [place] [address] Aug, [facility] [address] [id number] [address] [place] [address], [place] [address] May, [facility] [address] [id number] [address] [place] [address], [place] [address] Apr, [facility] [address] [id number] [address] [place] [address], [place] [address] Mar, [facility] [address] [id number] [address] [place] [address], [place] [address] Mar, [facility] [address] [id number] [address] [place] [address], [place] [address] Feb, [facility] [address] [id number] [address] [place] [address], [place] [address] Jan, [facility] [address] [id number] [address] [place] [address], [place] [address] Jan, [facility] [address] [id number] [address] [place] [address], [place] [address] Dec, [facility] [address] [id number] [address] [place] [address], [place] [address] Dec, [facility] [address] [id number] [address] [place] [address], [place] [address] Nov, [facility] [address] [id number] [address] [place] [address], [place] [address] Nov, [facility] [address] [id number] [address] [place] [address], [place] [address] Oct, [facility] [address] [id number] [address] [place] [address], [place] [address] Sep, [facility] [address] [id number] [address] [place] [address], [place] [address] Sep, [facility] [address] [id number] [address] [place] [address], [place] [address] Aug, [facility] [address] [id number] [address] [place] [address], [place] [address] Aug, [facility] [address] [id number] [address] [place] [address], [place] [address] Jul, [facility] [address] [id number] [address] [place] [address], [place] [address] Jul, [facility] [address] [id number] [address] [place] [address], [place] [address] June, [facility] [address] [id number] [address] [place] [address], [place] [address] June, [facility] [address] [id number] [address] [place] [address], [place] [address] May, [facility] [address] [id number] [address] [place] [address], [place] [address] May, [facility] [address] [id number] [address] [place] [address], [place] [address] May, [facility] [address] [id number] [address] [place] [address], [place] [address] Apr, [facility] [address] [id number] [address] [place] [address], [place] [address] Apr, [facility] [address] [id number] [address] [place] [address], [place] [address] Mar, [facility] [address] [id number] [address] [place] [address], [place] [address] Feb, [facility] [address] [facility] [id number] [address] [place] [address] Feb, [facility] [address] [facility] [id number] [address] [place] [address] Dec, [facility] [address] [facility] [id number] [address] [place] [address] Nov, IMMUNIZATIONS No Known Immunizations SOCIAL HISTORY Never Assessed REASON FOR VISIT PLAN OF CARE VITAL SIGNS MEDICATIONS Unknown Medications RESULTS No Results PROCEDURES Procedure Date Ordered Result Body Site PSYTX PT&/FAMILY 45 MINUTES Apr 02, 2014 INSTRUCTIONS MEDICATIONS ADMINISTERED No Known Medications
--- OUTSIDE RECORDS SUMMARY | 2019-09-10 15:39 | XMS REPORT ---
Author Author Aneesh BURNETT [facility] Address [address] [place] [address] Care Team Providers Care Sales And Leasing Consultant Name Role Phone KENIA BURNETT Unavailable PROBLEMS Type Condition ICD9-CM Code [id number] Code Onset Dates Condition S tatus SNOMED Code Problem Anxiety disorder, unspecified F41.9 Active [id number] ALLERGIES No Information ENCOUNTERS Encounter Location Date Diagnosis [place] [address] [place] [place] [id number] [place] [address] June, Anxiety disorder, unspecifie d F41.9 [place] [address] [place] [id number] [address] [place] [address] May, Anxiety disorder, unspecifie d F41.9 [facility] [address] [id number] [address] [place] [address] Apr, Anxiety disorder, unspecifie d F41.9 [place] [address] [place] [place] [id number] [address] [place] [address] Apr, [facility] [address] [id number] [address] [place] [address] Feb, Anxiety disorder, unspecifie d F41.9 [facility] [address] [id number] [address] [place] [address] Jan, Anxiety disorder, unspecifie d F41.9 [facility] [address] [id number] [address] [place] [address] Dec, Anxiety disorder, unspecifie d F41.9 [facility] [address] [id number] [address] [place] [address] Nov, Anxiety disorder, unspecifie d F41.9 [facility] [address] [facility] [id number] [address] [place] [address] Oct, Anxiety disorder, unspecifie d F41.9 [facility] [address] [facility] [id number] [address] [place] [address] Sep, Anxiety disorder, unspecifie d F41.9 [facility] [address] [facility] [id number] [address] [place] [address] Aug, Anxiety disorder, unspecifie d F41.9 [facility] [address] [facility] [id number] [address] [place] [address] Jul, Anxiety disorder, unspecifie d F41.9 [facility] [address] [facility] [id number] [address] [place] [address] June, Anxiety disorder, unspecifie d F41.9 [facility] [address] [facility] [id number] [address] [place] [address] May, Anxiety disorder, unspecifie d F41.9 [facility] [address] [facility] [id number] [address] [place] [address] May, Anxiety disorder, unspecifie d F41.9 [facility] [address] [facility] [id number] [address] [place] [address] Feb, Anxiety disorder, unspecifie d F41.9 [facility] [address] [facility] [id number] [address] [place] [address] May, Anxiety disorder, unspecifie d F41.9 [facility] [address] [facility] [id number] [address] [place] [address] Apr, Anxiety disorder, unspecifie d F41.9 [facility] [address] [facility] [id number] [address] [place] [address] Mar, Anxiety disorder, unspecifie d F41.9 [facility] [address] [facility] [id number] [address] [place] [address] Oct, Anxiety disorder, unspecifie d F41.9 [facility] [address] [facility] [id number] [address] [place] [address] Oct, Anxiety disorder, unspecifie d F41.9 [facility] [address] [facility] [id number] [address] [place] [address] Aug, Anxiety disorder, unspecifie d F41.9 [facility] [address] [facility] [id number] [address] [place] [address] Jul, Anxiety disorder, unspecifie d F41.9 [facility] [address] [facility] [id number] [address] [place] [address] Jul, Anxiety disorder, unspecifie d F41.9 [facility] [address] [facility] [id number] [address] [place] [address] June, Anxiety disorder, unspecifie d F41.9 [facility] [address] [facility] [id number] [address] [place] [address] June, Anxiety disorder, unspecifie d F41.9 [facility] [address] [facility] [id number] [address] [place] [address] May, Anxiety disorder, unspecifie d F41.9 [facility] [address] [facility] [id number] [address] [place] [address] Apr, Anxiety disorder, unspecifie d F41.9 [facility] [address] [facility] [id number] [address] [place] [address] Apr, Anxiety disorder, unspecifie d F41.9 [facility] [address] [facility] [id number] [address] [place] [address] Mar, Anxiety disorder, unspecifie d F41.9 [facility] [address] [facility] [id number] [address] [place] [address] Feb, Anxiety disorder, unspecifie d F41.9 [facility] [address] [place] [id number] [address] [place] [address] Jan, Anxiety disorder, unspecifie d F41.9 [facility] [address] [place] [id number] [address] [place] [address] Dec, Anxiety disorder, unspecifie d F41.9 [facility] [address] [place] [place] [id number] [address] [place] [address] Nov, Anxiety disorder, unspecifie d F41.9 [facility] [address] [place] [place] [id number] [address] [place] [address] Oct, Anxiety disorder, unspecifie d 300.00 [facility] [address] [place] [place] [id number] [address] [place] [address] Oct, Anxiety disorder, unspecifie d 300.00 [facility] [address] [place] [place] [id number] [place] [address] Sep, Anxiety disorder, unspecifie d 300.00 [facility] [address] [place] [id number] [address] [place] [address] Sep, Anxiety disorder, unspecifie d 300.00 [facility] [address] [place] [id number] [address] [place] [address] Sep, Anxiety disorder, unspecifie d 300.00 [facility] [id number] [place] [address] Sep, Anxiety disorder, unspecifie d 300.00 [facility] [address] [place] [id number] [address] [place] [address] Aug, Anxiety disorder, unspecifie d 300.00 [facility] [address] [place] [id number] [address] [place] [address] June, Anxiety disorder, unspecifie d 300.00 [facility] [address] [place] [id number] [address] [place] [address] Apr, [facility] [address] [id number] [address] [place] [address], [place] [address] 25 Apr, 2014 [facility] [address] [id number] [address] [place] [address], [place] [address] Apr, [facility] [address] [id number] [address] [place] [address], [place] [address] Apr, [facility] [address] [id number] [address] [place] [address], [place] [address] Mar, 2014 [facility] [address] [id number] [address] [place] [address], [place] [address] Mar, 2014 [facility] [address] [id number] [address] [place] [address], [place] [address] Mar, 2014 [facility] [address] [id number] [address] [place] [address], [place] [address] Mar, 2014 [facility] [address] [id number] [address] [place] [address], [place] [address] Aug, [facility] [address] [id number] [address] [place] [address], [place] [address] Aug, [facility] [address] [id number] [address] [place] [address], [place] [address] Apr, [facility] [address] [id number] [address] [place] [address], [place] [address] Apr, [facility] [address] [id number] [address] [place] [address], [place] [address] Mar, [facility] [address] [id number] [address] [place] [address], [place] [address] Mar, [facility] [address] [id number] [address] [place] [address], [place] [address] Feb, [facility] [address] [id number] [address] [place] [address], [place] [address] Feb, [facility] [address] [id number] [address] [place] [address] [address] Feb, [facility] [address] [id number] [address] [place] [address], [place] [address] Feb, [facility] [address] [id number] [address] [place] [address], [place] [address] Oct, [facility] [address] [id number] [address] [place] [address], [place] [address] Sep, [facility] [address] [id number] [address] [place] [address], [place] [address] Aug, [facility] [address] [id number] [address] [place] [address], [place] [address] May, [facility] [address] [id number] [address] [place] [address], [place] [address] Apr, [facility] [address] [id number] [address] [place] [address], [place] [address] Mar, [facility] [address] [id number] [address] [place] [address], [place] [address] Mar, [facility] [address] [id number] [address] [place] [address], [place] [address] Feb, [facility] [address] [id number] [address] [place] [address], [place] [address] Jan, [facility] [address] [id number] [address] [place] [address], [place] [address] Jan, [facility] [address] [id number] [address] [place] [address], [place] [address] Dec, [facility] [address] [id number] [address] [place] [address], [place] [address] Dec, [facility] [address] [id number] [address] [place] [address], [place] [address] Nov, [facility] [address] [id number] [address] [place] [address], [place] [address] Nov, [facility] [address] [id number] [address] [place] [address], [place] [address] Oct, [facility] [address] [id number] [address] [place] [address], [place] [address] Sep, [facility] [address] [id number] [address] [place] [address], [place] [address] Sep, [facility] [address] [id number] [address] [place] [address], [place] [address] Aug, [facility] [address] [id number] [address] [place] [address], [place] [address] Aug, [facility] [address] [id number] [address] [place] [address], [place] [address] Jul, [facility] [address] [id number] [address] [place] [address], [place] [address] Jul, [facility] [address] [id number] [address] [place] [address], [place] [address] June, [facility] [address] [id number] [address] [place] [address], [place] [address] June, [facility] [address] [id number] [address] [place] [address], [place] [address] May, [facility] [address] [id number] [address] [place] [address], [place] [address] May, [facility] [address] [id number] [address] [place] [address], [place] [address] May, [facility] [address] [id number] [address] [place] [address], [place] [address] Apr, [facility] [address] [id number] [address] [place] [address], [place] [address] Apr, [facility] [address] [id number] [address] [place] [address], [place] [address] Mar, [facility] [address] [id number] [address] [place] [address], [place] [address] Feb, [facility] [address] [facility] [id number] [address] [place] [address] Feb, [facility] [address] [facility] [id number] [address] [place] [address] Dec, [facility] [address] [facility] [id number] [address] [place] [address] Nov, IMMUNIZATIONS No Known Immunizations SOCIAL HISTORY Never Assessed REASON FOR VISIT PLAN OF CARE VITAL SIGNS MEDICATIONS Unknown Medications RESULTS No Results PROCEDURES No Known procedures INSTRUCTIONS MEDICATIONS ADMINISTERED No Known Medications
[2019-09-10 15:40] VITALS: BP 134/83
--- OUTSIDE RECORDS SUMMARY | 2019-09-10 15:40 | XMS REPORT ---
Author Author Aneesh BURNETT [facility] Address [address] [place] [address] Care Team Providers Care Medical Device Sales Consultant Name Role Phone KENIA BURNETT Unavailable PROBLEMS Type Condition ICD9-CM Code SYK89-CY Code Onset Dates Condition S tatus SNOMED Code Problem Anxiety disorder, unspecified F41.9 Active [id number] ALLERGIES No Information ENCOUNTERS Encounter Location Date Diagnosis [place] [address] [address] Aug, [place] [address] [address] June, Anxiety disorder, unspecifie d F41.9 [place] [id number] [place] [id number] [place] [address] May, Anxiety disorder, unspecifie d F41.9 [place] [address] [place] [id number] [place] [address] Apr, Anxiety disorder, unspecifie d F41.9 [place] [address] [place] [id number] [place] [address] Apr, [facility] [address] [place] [id number] [place] [address] Feb, Anxiety disorder, unspecifie d F41.9 [place] [address] [place] [id number] [place] [address] Jan, Anxiety disorder, unspecifie d F41.9 [place] [address] [place] [id number] [address] [place] [address] Dec, Anxiety disorder, unspecifie d F41.9 [place] [address] [place] [id number] [place] [address] Nov, Anxiety disorder, unspecifie d F41.9 [facility] [address] [facility] [id number] [address] [place] [address] Oct, Anxiety disorder, unspecifie d F41.9 [facility] [address] [facility] [id number] [address] [place] [address] Sep, Anxiety disorder, unspecifie d F41.9 [facility] [address] [facility] [id number] [address] [place] [address] Aug, Anxiety disorder, unspecifie d F41.9 [facility] [address] [facility] [id number] [address] [place] [address] Jul, Anxiety disorder, unspecifie d F41.9 [facility] [address] [facility] [id number] [address] [place] [address] June, Anxiety disorder, unspecifie d F41.9 [facility] [address] [facility] [id number] [address] [place] [address] May, Anxiety disorder, unspecifie d F41.9 [facility] [address] [facility] [id number] [address] [place] [address] May, Anxiety disorder, unspecifie d F41.9 [facility] [address] [facility] [id number] [address] [place] [address] Feb, Anxiety disorder, unspecifie d F41.9 [facility] [address] [facility] [id number] [address] [place] [address] May, Anxiety disorder, unspecifie d F41.9 [facility] [address] [facility] [id number] [address] [place] [address] Apr, Anxiety disorder, unspecifie d F41.9 [facility] [address] [facility] [id number] [address] [place] [address] Mar, Anxiety disorder, unspecifie d F41.9 [facility] [address] [id number] [address] [place] [id number] 14 Oct, 2015 Anxiety disorder, unspecifie d F41.9 [facility] [address] [id number] [address] [place] [address] Oct, Anxiety disorder, unspecifie d F41.9 [facility] [address] [id number] [address] [place] [address] Aug, Anxiety disorder, unspecifie d F41.9 [facility] [address] [id number] [address] [place] [address] Jul, Anxiety disorder, unspecifie d F41.9 [facility] [address] [id number] [address] [place] [address] Jul, Anxiety disorder, unspecifie d F41.9 [facility] [address] [id number] [address] [place] [address] June, Anxiety disorder, unspecifie d F41.9 [facility] [address] [id number] [address] [place] [address] June, Anxiety disorder, unspecifie d F41.9 [facility] [address] [id number] [address] [place] [address] May, Anxiety disorder, unspecifie d F41.9 [facility] [address] [id number] [address] [place] [address] Apr, Anxiety disorder, unspecifie d F41.9 [facility] [address] [id number] [address] [place] [address] Apr, Anxiety disorder, unspecifie d F41.9 [facility] [address] [id number] [address] [place] [address] Mar, Anxiety disorder, unspecifie d F41.9 [facility] [address] [id number] [address] [place] [address] Feb, Anxiety disorder, unspecifie d F41.9 [facility] [address] [address] Jan, Anxiety disorder, unspecifie d F41.9 [facility] [address] [address] Dec, Anxiety disorder, unspecifie d F41.9 [facility] [address] [address] Nov, Anxiety disorder, unspecifie d F41.9 [facility] [address] [address] Oct, Anxiety disorder, unspecifie d 300.00 [facility] [address] [address] Oct, Anxiety disorder, unspecifie d 300.00 [facility] [address] [address] Sep, Anxiety disorder, unspecifie d 300.00 [facility] [address] [address] Sep, Anxiety disorder, unspecifie d 300.00 [facility] [address] [place] [id number] [place] [address] Sep, Anxiety disorder, unspecifie d 300.00 [facility] [address] [address] Sep, Anxiety disorder, unspecifie d 300.00 [facility] [address] [address] Aug, Anxiety disorder, unspecifie d 300.00 [facility] [address] [place] [id number] [place] [address] June, Anxiety disorder, unspecifie d 300.00 [facility] [address] [id number] [address] [place] [address], [place] [address] Apr, [facility] [address] [id number] [address] [place] [address], [place] [address] Apr, [facility] [address] [id number] [address] [place] [address], [place] [address] Apr, [facility] [address] [id number] [address] [place] [address], [place] [address] Apr, [facility] [address] [id number] [address] [place] [address], [place] [address] Mar, [facility] [address] [id number] [address] [place] [address], [place] [address] Mar, 2014 [facility] [address] [id number] [address] [place] [address], [place] [address] Mar, 2014 [facility] [address] [id number] [address] [place] [address], [place] [address] Mar, [facility] [address] [id number] [address] [place] [address], [place] [address] Aug, [facility] [address] [id number] [address] [place] [address], [place] [address] Aug, [facility] [address] [id number] [address] [place] [address], [place] [address] Apr, [facility] [address] [id number] [address] [place] [address], [place] [address] Apr, [facility] [address] [id number] [address] [place] [address], [place] [address] Mar, [facility] [address] [id number] [address] [place] [address], [place] [address] Mar, [facility] [address] [id number] [address] [place] [address], [place] [address] Feb, [facility] [address] [id number] [address] [place] [address], [place] [address] Feb, [facility] [address] [id number] [address] [place] [address], [place] [address] Feb, [facility] [address] [id number] [address] [place] [address], [place] [address] Feb, [facility] [address] [id number] [address] [place] [address], [place] [address] Oct, [facility] [address] [id number] [address] [place] [address], [place] [address] Sep, [facility] [address] [id number] [address] [place] [address], [place] [address] Aug, [facility] [address] [id number] [address] [place] [address], [place] [address] May, [facility] [address] [id number] [address] [place] [address], [place] [address] Apr, [facility] [address] [id number] [address] [place] [address], [place] [address] Mar, [facility] [address] [id number] [address] [place] [address], [place] [address] Mar, [facility] [address] [id number] [address] [place] [address], [place] [address] Feb, [facility] [address] [id number] [address] [place] [address], [place] [address] Jan, [facility] [address] [id number] [address] [place] [address], [place] [address] Jan, [facility] [address] [id number] [address] [place] [address], [place] [address] Dec, [facility] [address] [id number] [address] [place] [address], [place] [address] Dec, [facility] [address] [id number] [address] [place] [address], [place] [address] Nov, [facility] [address] [id number] [address] [place] [address], [place] [address] 16 Nov, 2011 [facility] [address] [id number] [address] [place] [address], [place] [address] Oct, [facility] [address] [id number] [address] [place] [address], [place] [address] Sep, [facility] [address] [id number] [address] [place] [address], [place] [address] Sep, [facility] [address] [id number] [address] [place] [address], [place] [address] Aug, [facility] [address] [id number] [address] [place] [address], [place] [address] Aug, [facility] [address] [id number] [address] [place] [address], [place] [address] Jul, [facility] [address] [id number] [address] [place] [address], [place] [address] Jul, [facility] [address] [id number] [address] [place] [address], [place] [address] June, [facility] [address] [id number] [address] [place] [address], [place] [address] June, [facility] [address] [id number] [address] [place] [address], [place] [address] May, [facility] [address] [id number] [address] [place] [address], [place] [address] May, [facility] [address] [id number] [address] [place] [address], [place] [address] May, [facility] [address] [id number] [address] [place] [address], [place] [address] Apr, [facility] [address] [id number] [address] [place] [address], [place] [address] Apr, [facility] [address] [id number] [address] [place] [address], [place] [address] Mar, [facility] [address] [facility] [id number] [address] [place] [address] Feb, [facility] [address] [facility] [id number] [address] [place] [address] Feb, [facility] [address] [facility] [id number] [address] [place] [address] Dec, [facility] [address] [facility] [id number] [address] [place] [address] Nov, IMMUNIZATIONS No Known Immunizations SOCIAL HISTORY Never Assessed REASON FOR VISIT PLAN OF CARE VITAL SIGNS MEDICATIONS Unknown Medications RESULTS No Results PROCEDURES Procedure Date Ordered Result Body Site PSYTX PT&/FAMILY 45 MINUTES May 02, 2014 INSTRUCTIONS MEDICATIONS ADMINISTERED No Known Medications
--- OUTSIDE RECORDS SUMMARY | 2019-09-10 15:40 | XMS REPORT ---
Author Author [facility] Address [address] [place] [address] Care Team Providers Care Lighting Fixtures Decorator Name Role Phone KENIA BURNETT Unavailable PROBLEMS Type Condition ICD9-CM Code LED91-DZ Code Onset Dates Condition S tatus SNOMED Code Problem Anxiety disorder, unspecified F41.9 Active [id number] ALLERGIES No Information ENCOUNTERS Encounter Location Date Diagnosis [place] [id number] [place] [phone] June, Anxiety disorder, unspecifie d F41.9 [place] [address] [id number] [address] [place] [phone] May, Anxiety disorder, unspecifie d F41.9 [facility] [id number] [place] [phone] Apr, Anxiety disorder, unspecifie d F41.9 [place] [address] [id number] [address] [place] [phone] Apr, [facility] [address] [id number] [address] [place] [id number] Feb, Anxiety disorder, unspecifie d F41.9 [facility] [address] [id number] [address] [place] [id number] Jan, Anxiety disorder, unspecifie d F41.9 [facility] [address] [id number] [address] [place] [id number] Dec, Anxiety disorder, unspecifie d F41.9 [facility] [address] [id number] [address] [place] [phone] Nov, Anxiety disorder, unspecifie d F41.9 [facility] [address] [facility] [id number] [address] [place] [id number] Oct, Anxiety disorder, unspecifie d F41.9 [facility] [address] [facility] [id number] [address] [place] [phone] Sep, Anxiety disorder, unspecifie d F41.9 [facility] [address] [facility] [id number] [address] [place] [phone] Aug, Anxiety disorder, unspecifie d F41.9 [facility] [address] [facility] [id number] [address] [place] [phone] Jul, Anxiety disorder, unspecifie d F41.9 [facility] [address] [facility] [id number] [address] [place] [phone] June, Anxiety disorder, unspecifie d F41.9 [facility] [address] [facility] [id number] [address] [place] [phone] May, Anxiety disorder, unspecifie d F41.9 [facility] [address] [facility] [id number] [address] [place] [id number] May, Anxiety disorder, unspecifie d F41.9 [facility] [address] [facility] [id number] [address] [place] [phone] Feb, Anxiety disorder, unspecifie d F41.9 [facility] [address] [facility] [id number] [address] [place] [phone] May, Anxiety disorder, unspecifie d F41.9 [facility] [address] [facility] [id number] [address] [place] [phone] Apr, Anxiety disorder, unspecifie d F41.9 [facility] [address] [facility] [id number] [address] [place] [id number] Mar, Anxiety disorder, unspecifie d F41.9 [facility] [address] [facility] [id number] [address] [place] [phone] Oct, Anxiety disorder, unspecifie d F41.9 [facility] [address] [facility] [id number] [address] [place] [phone] Oct, Anxiety disorder, unspecifie d F41.9 [facility] [address] [facility] [id number] [address] [place] [phone] Aug, Anxiety disorder, unspecifie d F41.9 [facility] [address] [facility] [id number] [address] [place] [phone] Jul, Anxiety disorder, unspecifie d F41.9 [facility] [address] [facility] [id number] [address] [place] [id number] Jul, Anxiety disorder, unspecifie d F41.9 [facility] [address] [facility] [id number] [address] [place] [phone] June, Anxiety disorder, unspecifie d F41.9 [facility] [address] [facility] [id number] [address] [place] [phone] June, Anxiety disorder, unspecifie d F41.9 [facility] [address] [facility] [id number] [address] [place] [id number] May, Anxiety disorder, unspecifie d F41.9 [facility] [address] [facility] [id number] [address] [place] [phone] Apr, Anxiety disorder, unspecifie d F41.9 [facility] [address] [facility] [id number] [address] [place] [id number] Apr, Anxiety disorder, unspecifie d F41.9 [facility] [address] [facility] [id number] [address] [place] [id number] Mar, Anxiety disorder, unspecifie d F41.9 [facility] [address] [facility] [id number] [address] [place] [phone] Feb, Anxiety disorder, unspecifie d F41.9 [facility] [address] [id number] [address] [place] [id number] Jan, Anxiety disorder, unspecifie d F41.9 [facility] [address] [id number] [address] [place] [id number] Dec, Anxiety disorder, unspecifie d F41.9 [facility] [address] [id number] [address] [place] [id number] Nov, Anxiety disorder, unspecifie d F41.9 [facility] [address] [id number] [address] [place] [phone] Oct, Anxiety disorder, unspecifie d 300.00 [facility] [address] [id number] [address] [place] [id number] Oct, Anxiety disorder, unspecifie d 300.00 [facility] [address] [id number] [address] [place] [id number] Sep, Anxiety disorder, unspecifie d 300.00 [facility] [address] [place] [id number] [address] [place] [id number] Sep, Anxiety disorder, unspecifie d 300.00 [facility] [address] [place] [address] [id number] [address] [place] [phone] Sep, Anxiety disorder, unspecifie d 300.00 [facility] [id number] [place] [id number] Sep, Anxiety disorder, unspecifie d 300.00 [facility] [address] [place] [address] [id number] [address] [place] [id number] Aug, Anxiety disorder, unspecifie d 300.00 [facility] [address] [id number] [address] [place] [id number] June, Anxiety disorder, unspecifie d 300.00 [facility] [address] [id number] [address] [place] [phone] Apr, [facility] [address] [id number] [address] [place] [address], [place] [address] 25 Apr, 2014 [facility] [address] [id number] [address] [place] [address], [place] [address] Apr, [facility] [address] [id number] [address] [place] [address], [place] [address] Apr, [facility] [address] [id number] [address] [place] [address], [place] [address] Mar, 2014 [facility] [address] [id number] [address] [place] [address], [place] [address] Mar, 2014 [facility] [address] [id number] [address] [place] [address], [place] [address] Mar, 2014 [facility] [address] [id number] [address] [place] [address], [place] [address] Mar, 2014 [facility] [address] [id number] [address] [place] [address], [place] [address] Aug, [facility] [address] [id number] [address] [place] [address], [place] [address] Aug, [facility] [address] [id number] [address] [place] [address], [place] [address] Apr, [facility] [address] [id number] [address] [place] [address], [place] [address] Apr, [facility] [address] [id number] [address] [place] [address], [place] [address] Mar, [facility] [address] [id number] [address] [place] [address], [place] [address] Mar, [facility] [address] [id number] [address] [place] [address], [place] [address] Feb, [facility] [address] [id number] [address] [place] [address], [place] [address] Feb, [facility] [address] [id number] [address] [place] [address] [address] Feb, [facility] [address] [id number] [address] [place] [address], [place] [address] Feb, [facility] [address] [id number] [address] [place] [address], [place] [address] Oct, [facility] [address] [id number] [address] [place] [address], [place] [address] Sep, [facility] [address] [id number] [address] [place] [address], [place] [address] Aug, [facility] [address] [id number] [address] [place] [address], [place] [address] May, [facility] [address] [id number] [address] [place] [address], [place] [address] Apr, [facility] [address] [id number] [address] [place] [address], [place] [address] Mar, [facility] [address] [id number] [address] [place] [address], [place] [address] Mar, [facility] [address] [id number] [address] [place] [address], [place] [address] Feb, [facility] [address] [id number] [address] [place] [address], [place] [address] Jan, [facility] [address] [id number] [address] [place] [address], [place] [address] Jan, [facility] [address] [id number] [address] [place] [address], [place] [address] Dec, [facility] [address] [id number] [address] [place] [address], [place] [address] Dec, [facility] [address] [id number] [address] [place] [address], [place] [address] Nov, [facility] [address] [id number] [address] [place] [address], [place] [address] Nov, [facility] [address] [id number] [address] [place] [address], [place] [address] Oct, [facility] [address] [id number] [address] [place] [address], [place] [address] Sep, [facility] [address] [id number] [address] [place] [address], [place] [address] Sep, [facility] [address] [id number] [address] [place] [address], [place] [address] Aug, [facility] [address] [id number] [address] [place] [address], [place] [address] Aug, [facility] [address] [id number] [address] [place] [address], [place] [address] Jul, [facility] [address] [id number] [address] [place] [address], [place] [address] Jul, [facility] [address] [id number] [address] [place] [address], [place] [address] June, [facility] [address] [id number] [address] [place] [address], [place] [address] June, [facility] [address] [id number] [address] [place] [address], [place] [address] May, [facility] [address] [id number] [address] [place] [address], [place] [address] May, [facility] [address] [id number] [address] [place] [address], [place] [address] May, [facility] [address] [id number] [address] [place] [address], [place] [address] Apr, [facility] [address] [id number] [address] [place] [address], [place] [address] Apr, [facility] [address] [id number] [address] [place] [address], [place] [address] Mar, [facility] [address] [id number] [address] [place] [address], [place] [address] Feb, [facility] [address] [facility] [id number] [address] [place] [address] Feb, [facility] [address] [facility] [id number] [address] [place] [address] Dec, [facility] [address] [facility] [id number] [address] [place] [address] Nov, IMMUNIZATIONS No Known Immunizations SOCIAL HISTORY Never Assessed REASON FOR VISIT PLAN OF CARE VITAL SIGNS MEDICATIONS Unknown Medications RESULTS No Results PROCEDURES Procedure Date Ordered Result Body Site PSYTX PT&/FAMILY 45 MINUTES Mar 20, 2014 INSTRUCTIONS MEDICATIONS ADMINISTERED No Known Medications
--- OUTSIDE RECORDS SUMMARY | 2019-09-10 15:40 | XMS REPORT ---
Author Author Aneesh JOSE Organization [facility] Address [address] [place] [address] Care Team Providers Care Cigar Binder Name Role Phone DAMON MIRA Unavailable PROBLEMS Type Condition ICD9-CM Code [id number] Code Onset Dates Condition S tatus SNOMED Code Problem Anxiety disorder, unspecified F41.9 Active [id number] ALLERGIES No Information ENCOUNTERS Encounter Location Date Diagnosis [place] [address] [place] [id number] [place] [address] June, Anxiety disorder, unspecifie d F41.9 [place] [address] [place] [id number] [address] [place] [address] May, Anxiety disorder, unspecifie d F41.9 [facility] [address] [place] [id number] [place] [address] Apr, Anxiety disorder, unspecifie d F41.9 [place] [address] [place] [id number] [place] [address] Apr, [facility] [address] [place] [id number] [place] [address] Feb, Anxiety disorder, unspecifie d F41.9 [facility] [address] [place] [place] [id number] [place] [address] Jan, Anxiety disorder, unspecifie d F41.9 [facility] [address] [place] [id number] [place] [address] Dec, Anxiety disorder, unspecifie d F41.9 [facility] [address] [place] [id number] [place] [address] Nov, Anxiety disorder, unspecifie d F41.9 [place] [id number] [facility] [id number] [address] [place] [address] Oct, Anxiety disorder, unspecifie d F41.9 [facility] [address] [facility] [id number] [address] [place] [address] Sep, Anxiety disorder, unspecifie d F41.9 [facility] [address] [facility] [id number] [address] [place] [address] Aug, Anxiety disorder, unspecifie d F41.9 [facility] [address] [facility] [id number] [address] [place] [address] Jul, Anxiety disorder, unspecifie d F41.9 [facility] [address] [facility] [id number] [address] [place] [address] June, Anxiety disorder, unspecifie d F41.9 [facility] [address] [facility] [id number] [address] [place] [address] May, Anxiety disorder, unspecifie d F41.9 [facility] [address] [facility] [id number] [address] [place] [address] May, Anxiety disorder, unspecifie d F41.9 [facility] [address] [facility] [id number] [address] [place] [address] Feb, Anxiety disorder, unspecifie d F41.9 [facility] [address] [facility] [id number] [address] [place] [address] May, Anxiety disorder, unspecifie d F41.9 [facility] [address] [facility] [id number] [address] [place] [address] Apr, Anxiety disorder, unspecifie d F41.9 [facility] [address] [facility] [id number] [address] [place] [phone] Mar, Anxiety disorder, unspecifie d F41.9 [facility] [address] [facility] [id number] [address] [place] [address] Oct, Anxiety disorder, unspecifie d F41.9 [facility] [address] [id number] [address] [place] [address] Oct, Anxiety disorder, unspecifie d F41.9 [facility] [address] [id number] [address] [place] [address] Aug, Anxiety disorder, unspecifie d F41.9 [facility] [address] [id number] [address] [place] [address] Jul, Anxiety disorder, unspecifie d F41.9 [facility] [address] [id number] [address] [place] [address] Jul, Anxiety disorder, unspecifie d F41.9 [facility] [address] [facility] [id number] [address] [place] [address] June, Anxiety disorder, unspecifie d F41.9 [facility] [address] [facility] [id number] [address] [place] [address] June, Anxiety disorder, unspecifie d F41.9 [facility] [address] [facility] [id number] [address] [place] [address] May, Anxiety disorder, unspecifie d F41.9 [facility] [address] [facility] [id number] [address] [place] [address] Apr, Anxiety disorder, unspecifie d F41.9 [facility] [address] [facility] [id number] [address] [place] [address] Apr, Anxiety disorder, unspecifie d F41.9 [facility] [address] [facility] [id number] [address] [place] [address] Mar, Anxiety disorder, unspecifie d F41.9 [facility] [address] [facility] [id number] [address] [place] [address] Feb, Anxiety disorder, unspecifie d F41.9 [facility] [address] [place] [id number] [address] [place] [address] Jan, Anxiety disorder, unspecifie d F41.9 [facility] [address] [place] [id number] [address] [place] [address] Dec, Anxiety disorder, unspecifie d F41.9 [facility] [address] [place] [id number] [place] [phone] Nov, Anxiety disorder, unspecifie d F41.9 [facility] [address] [place] [id number] [place] [address] Oct, Anxiety disorder, unspecifie d 300.00 [facility] [address] [phone] Oct, Anxiety disorder, unspecifie d 300.00 [facility] [address] [place] [id number] [address] [place] [address] Sep, Anxiety disorder, unspecifie d 300.00 [facility] [address] [place] [id number] [place] [address] Sep, Anxiety disorder, unspecifie d 300.00 [facility] [address] [place] [id number] [place] [address] Sep, Anxiety disorder, unspecifie d 300.00 [facility] [address] [place] [id number] [address] [place] [address] Sep, Anxiety disorder, unspecifie d 300.00 [facility] [address] [place] [id number] [place] [phone] Aug, Anxiety disorder, unspecifie d 300.00 [facility] [address] [place] [id number] [place] [address] June, Anxiety disorder, unspecifie d 300.00 [facility] [address] [place] [id number] [place] [phone] Apr, [facility] [address] [id number] [address] [place] [address], [place] [address] Apr, [facility] [address] [id number] [address] [place] [address], [place] [address] Apr, [facility] [address] [id number] [address] [place] [address], [place] [address] Apr, [facility] [address] [id number] [address] [place] [address], [place] [address] Mar, 2014 [facility] [address] [id number] [address] [place] [address], [place] [address] Mar, 2014 [facility] [address] [id number] [address] [place] [address], [place] [address] Mar, 2014 [facility] [address] [id number] [address] [place] [address], [place] [address] Mar, [facility] [address] [id number] [address] [place] [address], [place] [address] Aug, [facility] [address] [id number] [address] [place] [address], [place] [address] Aug, [facility] [address] [id number] [address] [place] [address], [place] [address] Apr, [facility] [address] [id number] [address] [place] [address], [place] [address] Apr, [facility] [address] [id number] [address] [place] [address], [place] [address] Mar, [facility] [address] [id number] [address] [place] [address], [place] [address] Mar, [facility] [address] [id number] [address] [place] [address], [place] [address] Feb, [facility] [address] [id number] [address] [place] [address], [place] [address] Feb, [facility] [address] [id number] [address] [place] [address], [place] [address] Feb, [facility] [address] [id number] [address] [place] [address], [place] [address] Feb, [facility] [address] [id number] [address] [place] [address], [place] [address] Oct, [facility] [address] [id number] [address] [place] [address], [place] [address] Sep, [facility] [address] [id number] [address] [place] [address], [place] [address] Aug, [facility] [address] [id number] [address] [place] [address], [place] [address] May, [facility] [address] [id number] [address] [place] [address], [place] [address] Apr, [facility] [address] [id number] [address] [place] [address], [place] [address] Mar, [facility] [address] [id number] [address] [place] [address], [place] [address] Mar, [facility] [address] [id number] [address] [place] [address], [place] [address] Feb, [facility] [address] [id number] [address] [place] [address], [place] [address] Jan, [facility] [address] [id number] [address] [place] [address], [place] [address] Jan, [facility] [address] [id number] [address] [place] [address] Dec, [facility] [address] [id number] [address] [place] [address], [place] [address] Dec, [facility] [address] [id number] [address] [place] [address], [place] [address] Nov, [facility] [address] [id number] [address] [place] [address], [place] [address] Nov, [facility] [address] [id number] [address] [place] [address], [place] [address] Oct, [facility] [address] [id number] [address] [place] [address], [place] [address] Sep, [facility] [address] [id number] [address] [place] [address], [place] [address] Sep, [facility] [address] [id number] [address] [place] [address], [place] [address] Aug, [facility] [address] [id number] [address] [place] [address], [place] [address] Aug, [facility] [address] [id number] [address] [place] [address], [place] [address] Jul, [facility] [address] [id number] [address] [place] [address], [place] [address] Jul, [facility] [address] [id number] [address] [place] [address], [place] [address] June, [facility] [address] [id number] [address] [place] [address], [place] [address] June, [facility] [address] [id number] [address] [place] [address], [place] [address] May, [facility] [address] [id number] [address] [place] [address], [place] [address] May, [facility] [address] [id number] [address] [place] [address], [place] [address] May, [facility] [address] [id number] [address] [place] [address], [place] [address] Apr, [facility] [address] [id number] [address] [place] [address], [place] [address] Apr, [facility] [address] [id number] [address] [place] [address], [place] [address] Mar, [facility] [address] [id number] [address] [place] [address], [place] [address] Feb, [facility] [address] [facility] [id number] [address] [place] [address] Feb, [facility] [address] [facility] [id number] [address] [place] [address] Dec, [facility] [address] [facility] [id number] [address] [place] [address] Nov, IMMUNIZATIONS No Known Immunizations SOCIAL HISTORY Never Assessed REASON FOR VISIT PLAN OF CARE VITAL SIGNS MEDICATIONS Unknown Medications RESULTS No Results PROCEDURES No Known procedures INSTRUCTIONS MEDICATIONS ADMINISTERED No Known Medications
--- OUTSIDE RECORDS SUMMARY | 2019-09-10 15:40 | XMS REPORT ---
Author Author Aneesh BURNETT [facility] Address [address] [place] [address] Care Team Providers Care Retort Firer Name Role Phone KENIA BURNETT Unavailable PROBLEMS Type Condition ICD9-CM Code [id number] Code Onset Dates Condition S tatus SNOMED Code Problem Anxiety disorder, unspecified F41.9 Active [id number] ALLERGIES No Information ENCOUNTERS Encounter Location Date Diagnosis [place] [address] [address] Nov, [place] [address] [address] Oct, Anxiety disorder, unspecifie d F41.9 [place] [address] [place] [id number] [address] [place] [phone] Sep, Anxiety disorder, unspecifie d F41.9 [place] [address] [address] Aug, Anxiety disorder, unspecifie d F41.9 [place] [address] [address] [place] [id number] [address] [place] [phone] Jul, Anxiety disorder, unspecifie d F41.9 [place] [address] [place] [id number] [address] [place] [id number] June, Anxiety disorder, unspecifie d F41.9 [place] [address] [address] [place] [id number] [address] [place] [phone] May, Anxiety disorder, unspecifie d F41.9 [place] [address] [address] [place] [id number] [address] [place] [phone] May, Anxiety disorder, unspecifie d F41.9 [facility] [address] [id number] [address] [place] [phone] Feb, Anxiety disorder, unspecifie d F41.9 [facility] [address] [facility] [id number] [address] [place] [phone] May, Anxiety disorder, unspecifie d F41.9 [facility] [address] [facility] [id number] [address] [place] [id number] Apr, Anxiety disorder, unspecifie d F41.9 [facility] [address] [id number] [address] [place] [phone] Mar, Anxiety disorder, unspecifie d F41.9 [facility] [address] [facility] [id number] [address] [place] [id number] Oct, Anxiety disorder, unspecifie d F41.9 [facility] [address] [facility] [id number] [address] [place] [phone] Oct, Anxiety disorder, unspecifie d F41.9 [facility] [address] [facility] [id number] [address] [place] [phone] Aug, Anxiety disorder, unspecifie d F41.9 [facility] [address] [facility] [id number] [address] [place] [phone] Jul, Anxiety disorder, unspecifie d F41.9 [facility] [address] [facility] [id number] [address] [place] [phone] Jul, Anxiety disorder, unspecifie d F41.9 [facility] [address] [facility] [id number] [address] [place] [phone] June, Anxiety disorder, unspecifie d F41.9 [facility] [address] [facility] [id number] [address] [place] [phone] June, Anxiety disorder, unspecifie d F41.9 [facility] [address] [facility] [id number] [address] [place] [phone] May, Anxiety disorder, unspecifie d F41.9 [facility] [address] [facility] [id number] [address] [place] [phone] Apr, Anxiety disorder, unspecifie d F41.9 [facility] [address] [facility] [id number] [address] [place] [phone] Apr, Anxiety disorder, unspecifie d F41.9 [facility] [address] [facility] [id number] [address] [place] [phone] Mar, Anxiety disorder, unspecifie d F41.9 [facility] [address] [facility] [id number] [address] [place] [id number] Feb, Anxiety disorder, unspecifie d F41.9 [facility] [address] [place] [id number] [address] [place] [phone] Jan, Anxiety disorder, unspecifie d F41.9 [facility] [address] [place] [id number] [address] [place] [phone] Dec, Anxiety disorder, unspecifie d F41.9 [facility] [address] [place] [id number] [address] [place] [phone] Nov, Anxiety disorder, unspecifie d F41.9 [facility] [address] [place] [id number] [address] [place] [phone] Oct, Anxiety disorder, unspecifie d 300.00 [facility] [address] [place] [id number] [address] [place] [phone] Oct, Anxiety disorder, unspecifie d 300.00 [facility] [address] [facility] [id number] [address] [place] [phone] Sep, Anxiety disorder, unspecifie d 300.00 [facility] [address] [facility] [id number] [address] [place] [id number] Sep, Anxiety disorder, unspecifie d 300.00 [facility] [address] [place] [id number] [address] [place] [id number] Sep, Anxiety disorder, unspecifie d 300.00 [facility] [address] [facility] [id number] [address] [place] [phone] Sep, Anxiety disorder, unspecifie d 300.00 [facility] [address] [facility] [id number] [address] [place] [id number] Aug, Anxiety disorder, unspecifie d 300.00 [facility] [address] [id number] [address] [place] [phone] June, Anxiety disorder, unspecifie d 300.00 [facility] [address] [id number] [address] [place] [phone] Apr, [facility] [address] [facility] [id number] [address] [place] [id number] Apr, [facility] [address] [id number] [address] [place] [id number] Apr, [facility] [address] [facility] [id number] [address] [place] [phone] Apr, [facility] [address] [facility] [id number] [address] [place] [phone] Mar, [facility] [address] [facility] [id number] [address] [place] [phone] Mar, [facility] [address] [id number] [address] [place] [phone] Mar, [facility] [address] [facility] [id number] [address] [place] [phone] Mar, [facility] [address] [id number] [address] [place] [phone] Aug, [facility] [address] [facility] [id number] [address] [place] [phone] Aug, [facility] [address] [id number] [address] [place] [phone] Apr, [facility] [address] [id number] [address] [place] [address], [place] [address] Apr, [facility] [address] [id number] [address] [place] [address], [place] [address] Mar, [facility] [address] [id number] [address] [place] [address], [place] [address] Mar, [facility] [address] [id number] [address] [place] [address], [place] [address] Feb, [facility] [address] [id number] [address] [place] [address], [place] [address] Feb, [facility] [address] [id number] [address] [place] [address], [place] [address] Feb, [facility] [address] [id number] [address] [place] [address], [place] [address] Feb, [facility] [address] [id number] [address] [place] [address], [place] [address] Oct, [facility] [address] [id number] [address] [place] [address], [place] [address] Sep, [facility] [address] [id number] [address] [place] [address], [place] [address] Aug, [facility] [address] [id number] [address] [place] [address], [place] [address] May, [facility] [address] [id number] [address] [place] [address], [place] [address] Apr, [facility] [address] [id number] [address] [place] [address], [place] [address] Mar, [facility] [address] [id number] [address] [place] [address], [place] [address] Mar, [facility] [address] [id number] [address] [place] [address], [place] [address] Feb, [facility] [address] [id number] [address] [place] [address], [place] [address] Jan, [facility] [address] [id number] [address] [place] [address], [place] [address] Jan, [facility] [address] [id number] [address] [place] [address], [place] [address] Dec, [facility] [address] [id number] [address] [place] [address], [place] [address] Dec, [facility] [address] [id number] [address] [place] [address], [place] [address] Nov, [facility] [address] [id number] [address] [place] [address], [place] [address] Nov, [facility] [address] [id number] [address] [place] [address], [place] [address] Oct, [facility] [address] [id number] [address] [place] [address], [place] [address] Sep, [facility] [address] [id number] [address] [place] [address], [place] [address] Sep, [facility] [address] [id number] [address] [place] [address], [place] [address] Aug, [facility] [address] [id number] [address] [place] [address], [place] [address] Aug, [facility] [address] [id number] [address] [place] [address], [place] [address] Jul, [facility] [address] [id number] [address] [place] [address], [place] [address] Jul, [facility] [address] [id number] [address] [place] [address], [place] [address] June, [facility] [address] [id number] [address] [place] [address], [place] [address] June, [facility] [address] [id number] [address] [place] [address], [place] [address] May, [facility] [address] [id number] [address] [place] [phone] May, [facility] [address] [id number] [address] [place] [id number] May, [facility] [address] [id number] [address] [place] [address] Apr, [facility] [address] [id number] [address] [place] [id number] Apr, [facility] [address] [id number] [address] [place] [phone] Mar, [facility] [address] [id number] [address] [place] [id number] Feb, [facility] [address] [id number] [address] [place] [id number] Feb, [facility] [address] [id number] [address] [place] [phone] Dec, [facility] [address] [id number] [address] [place] [id number] Nov, IMMUNIZATIONS No Known Immunizations SOCIAL HISTORY Never Assessed REASON FOR VISIT f/u PLAN OF CARE Activity Details Follow Up Next available Reason: F/U VITAL SIGNS MEDICATIONS Unknown Medications RESULTS No Results PROCEDURES Procedure Date Ordered Result Body Site Psychotherapy, patient &/family, 45 minutes, established pat ient Oct 13, 2017 INSTRUCTIONS MEDICATIONS ADMINISTERED No Known Medications
--- OUTSIDE RECORDS SUMMARY | 2019-09-10 15:40 | XMS REPORT ---
Author Author Aneesh JOSE Organization [facility] Address [address] [place] [address] Care Team Providers Care Medical Director Of Hospice Name Role Phone DAMON MIRA Unavailable PROBLEMS Type Condition ICD9-CM Code [id number] Code Onset Dates Condition S tatus SNOMED Code Problem Anxiety disorder, unspecified F41.9 Active [id number] ALLERGIES No Information ENCOUNTERS Encounter Location Date Diagnosis [place] [address] [place] [id number] [address] [place] [address] June, Anxiety disorder, unspecifie d F41.9 [place] [address] [place] [id number] [address] [place] [address] May, Anxiety disorder, unspecifie d F41.9 [facility] [address] [place] [address] [id number] [address] [place] [address] Apr, Anxiety disorder, unspecifie d F41.9 [place] [address] [place] [id number] [address] [place] [address] Apr, [facility] [address] [place] [id number] [address] [place] [address] Feb, Anxiety disorder, unspecifie d F41.9 [facility] [address] [id number] [address] [place] [address] Jan, Anxiety disorder, unspecifie d F41.9 [facility] [address] [place] [address] [id number] [address] [place] [address] Dec, Anxiety disorder, unspecifie d F41.9 [facility] [address] [place] [id number] [address] [place] [address] Nov, Anxiety disorder, unspecifie d F41.9 [place] [id number] [facility] [id number] [address] [place] [address] Oct, Anxiety disorder, unspecifie d F41.9 [facility] [address] [facility] [id number] [address] [place] [address] Sep, Anxiety disorder, unspecifie d F41.9 [facility] [address] [facility] [id number] [address] [place] [address] Aug, Anxiety disorder, unspecifie d F41.9 [facility] [address] [facility] [id number] [address] [place] [address] Jul, Anxiety disorder, unspecifie d F41.9 [facility] [address] [facility] [id number] [address] [place] [address] June, Anxiety disorder, unspecifie d F41.9 [facility] [address] [facility] [id number] [address] [place] [address] May, Anxiety disorder, unspecifie d F41.9 [facility] [address] [facility] [id number] [address] [place] [address] May, Anxiety disorder, unspecifie d F41.9 [facility] [address] [facility] [id number] [address] [place] [address] Feb, Anxiety disorder, unspecifie d F41.9 [facility] [address] [facility] [id number] [address] [place] [address] May, Anxiety disorder, unspecifie d F41.9 [facility] [address] [facility] [id number] [address] [place] [address] Apr, Anxiety disorder, unspecifie d F41.9 [facility] [address] [facility] [id number] [address] [place] [address] Mar, Anxiety disorder, unspecifie d F41.9 [facility] [address] [facility] [id number] [address] [place] [address] Oct, Anxiety disorder, unspecifie d F41.9 [facility] [address] [id number] [address] [place] [address] Oct, Anxiety disorder, unspecifie d F41.9 [facility] [address] [id number] [address] [place] [address] Aug, Anxiety disorder, unspecifie d F41.9 [facility] [address] [id number] [address] [place] [address] Jul, Anxiety disorder, unspecifie d F41.9 [facility] [address] [id number] [address] [place] [address] Jul, Anxiety disorder, unspecifie d F41.9 [facility] [address] [facility] [id number] [address] [place] [address] June, Anxiety disorder, unspecifie d F41.9 [facility] [address] [facility] [id number] [address] [place] [address] June, Anxiety disorder, unspecifie d F41.9 [facility] [address] [facility] [id number] [address] [place] [address] May, Anxiety disorder, unspecifie d F41.9 [facility] [address] [facility] [id number] [address] [place] [address] Apr, Anxiety disorder, unspecifie d F41.9 [facility] [address] [facility] [id number] [address] [place] [address] Apr, Anxiety disorder, unspecifie d F41.9 [facility] [address] [facility] [id number] [address] [place] [address] Mar, Anxiety disorder, unspecifie d F41.9 [facility] [address] [facility] [id number] [address] [place] [address] Feb, Anxiety disorder, unspecifie d F41.9 [facility] [address] [place] [id number] [address] [place] [address] Jan, Anxiety disorder, unspecifie d F41.9 [facility] [address] [place] [id number] [address] [place] [address] Dec, Anxiety disorder, unspecifie d F41.9 [facility] [address] [place] [address] [id number] [address] [place] [address] Nov, Anxiety disorder, unspecifie d F41.9 [facility] [address] [place] [address] [id number] [address] [place] [address] Oct, Anxiety disorder, unspecifie d 300.00 [facility] [address] [address] Oct, Anxiety disorder, unspecifie d 300.00 [facility] [address] [place] [id number] [address] [place] [address] Sep, Anxiety disorder, unspecifie d 300.00 [facility] [address] [place] [address] [id number] [address] [place] [address] Sep, Anxiety disorder, unspecifie d 300.00 [facility] [address] [place] [id number] [address] [place] [id number] Sep, Anxiety disorder, unspecifie d 300.00 [facility] [address] [place] [id number] [address] [place] [address] Sep, Anxiety disorder, unspecifie d 300.00 [facility] [address] [place] [id number] [address] [place] [id number] Aug, Anxiety disorder, unspecifie d 300.00 [facility] [address] [place] [id number] [address] [place] [address] June, Anxiety disorder, unspecifie d 300.00 [facility] [address] [place] [id number] [address] [place] [id number] Apr, [facility] [address] [id number] [address] [place] [address], [place] [address] Apr, [facility] [address] [id number] [address] [place] [address], [place] [address] Apr, [facility] [address] [id number] [address] [place] [address], [place] [address] Apr, [facility] [address] [id number] [address] [place] [address], [place] [address] Mar, 2014 [facility] [address] [id number] [address] [place] [address], [place] [address] Mar, 2014 [facility] [address] [id number] [address] [place] [address], [place] [address] Mar, 2014 [facility] [address] [id number] [address] [place] [address], [place] [address] Mar, [facility] [address] [id number] [address] [place] [address], [place] [address] Aug, [facility] [address] [id number] [address] [place] [address], [place] [address] Aug, [facility] [address] [id number] [address] [place] [address], [place] [address] Apr, [facility] [address] [id number] [address] [place] [address], [place] [address] Apr, [facility] [address] [id number] [address] [place] [address], [place] [address] Mar, [facility] [address] [id number] [address] [place] [address], [place] [address] Mar, [facility] [address] [id number] [address] [place] [address], [place] [address] Feb, [facility] [address] [id number] [address] [place] [address], [place] [address] Feb, [facility] [address] [id number] [address] [place] [address], [place] [address] Feb, [facility] [address] [id number] [address] [place] [address], [place] [address] Feb, [facility] [address] [id number] [address] [place] [address], [place] [address] Oct, [facility] [address] [id number] [address] [place] [address], [place] [address] Sep, [facility] [address] [id number] [address] [place] [address], [place] [address] Aug, [facility] [address] [id number] [address] [place] [address], [place] [address] May, [facility] [address] [id number] [address] [place] [address], [place] [address] Apr, [facility] [address] [id number] [address] [place] [address], [place] [address] Mar, [facility] [address] [id number] [address] [place] [address], [place] [address] Mar, [facility] [address] [id number] [address] [place] [address], [place] [address] Feb, [facility] [address] [id number] [address] [place] [address], [place] [address] Jan, [facility] [address] [id number] [address] [place] [address], [place] [address] Jan, [facility] [address] [id number] [address] [place] [address] Dec, [facility] [address] [id number] [address] [place] [address], [place] [address] Dec, [facility] [address] [id number] [address] [place] [address], [place] [address] Nov, [facility] [address] [id number] [address] [place] [address], [place] [address] Nov, [facility] [address] [id number] [address] [place] [address], [place] [address] Oct, [facility] [address] [id number] [address] [place] [address], [place] [address] Sep, [facility] [address] [id number] [address] [place] [address], [place] [address] Sep, [facility] [address] [id number] [address] [place] [address], [place] [address] Aug, [facility] [address] [id number] [address] [place] [address], [place] [address] Aug, [facility] [address] [id number] [address] [place] [address], [place] [address] Jul, [facility] [address] [id number] [address] [place] [address], [place] [address] Jul, [facility] [address] [id number] [address] [place] [address], [place] [address] June, [facility] [address] [id number] [address] [place] [address], [place] [address] June, [facility] [address] [id number] [address] [place] [address], [place] [address] May, [facility] [address] [id number] [address] [place] [address], [place] [address] May, [facility] [address] [id number] [address] [place] [address], [place] [address] May, [facility] [address] [id number] [address] [place] [address], [place] [address] Apr, [facility] [address] [id number] [address] [place] [address], [place] [address] Apr, [facility] [address] [id number] [address] [place] [address], [place] [address] Mar, [facility] [address] [id number] [address] [place] [address], [place] [address] Feb, [facility] [address] [facility] [id number] [address] [place] [address] Feb, [facility] [address] [facility] [id number] [address] [place] [address] Dec, [facility] [address] [facility] [id number] [address] [place] [address] Nov, IMMUNIZATIONS No Known Immunizations SOCIAL HISTORY Never Assessed REASON FOR VISIT PLAN OF CARE VITAL SIGNS MEDICATIONS Unknown Medications RESULTS No Results PROCEDURES No Known procedures INSTRUCTIONS MEDICATIONS ADMINISTERED No Known Medications
--- OUTSIDE RECORDS SUMMARY | 2019-09-10 15:40 | XMS REPORT ---
Author Author Aneesh BURNETT [facility] Address [address] [place] [address] Care Team Providers Care Special Education Resource Room Teacher Name Role Phone KENIA BURNETT Unavailable PROBLEMS Type Condition ICD9-CM Code TQS85-UW Code Onset Dates Condition S tatus SNOMED Code Problem Anxiety disorder, unspecified F41.9 Active [id number] ALLERGIES No Information ENCOUNTERS Encounter Location Date Diagnosis [place] [address] [address] Aug, [place] [address] [address] June, Anxiety disorder, unspecifie d F41.9 [place] [id number] [place] [id number] [place] [address] May, Anxiety disorder, unspecifie d F41.9 [place] [address] [address] [place] [id number] [place] [address] Apr, Anxiety disorder, unspecifie d F41.9 [place] [address] [place] [id number] [place] [address] Apr, [facility] [address] [place] [id number] [place] [address] Feb, Anxiety disorder, unspecifie d F41.9 [place] [address] [address] [place] [id number] [place] [address] Jan, Anxiety disorder, unspecifie d F41.9 [place] [address] [address] [place] [id number] [address] [place] [address] Dec, Anxiety disorder, unspecifie d F41.9 [place] [address] [place] [id number] [place] [address] Nov, Anxiety disorder, unspecifie d F41.9 [facility] [address] [facility] [id number] [address] [place] [address] Oct, Anxiety disorder, unspecifie d F41.9 [facility] [address] [facility] [id number] [address] [place] [address] Sep, Anxiety disorder, unspecifie d F41.9 [facility] [address] [facility] [id number] [address] [place] [address] Aug, Anxiety disorder, unspecifie d F41.9 [facility] [address] [facility] [id number] [address] [place] [address] Jul, Anxiety disorder, unspecifie d F41.9 [facility] [address] [facility] [id number] [address] [place] [address] June, Anxiety disorder, unspecifie d F41.9 [facility] [address] [facility] [id number] [address] [place] [address] May, Anxiety disorder, unspecifie d F41.9 [facility] [address] [facility] [id number] [address] [place] [address] May, Anxiety disorder, unspecifie d F41.9 [facility] [address] [facility] [id number] [address] [place] [address] Feb, Anxiety disorder, unspecifie d F41.9 [facility] [address] [facility] [id number] [address] [place] [address] May, Anxiety disorder, unspecifie d F41.9 [facility] [address] [facility] [id number] [address] [place] [address] Apr, Anxiety disorder, unspecifie d F41.9 [facility] [address] [facility] [id number] [address] [place] [address] Mar, Anxiety disorder, unspecifie d F41.9 [facility] [address] [id number] [address] [place] [address] 14 Oct, 2015 Anxiety disorder, unspecifie d F41.9 [facility] [address] [id number] [address] [place] [address] Oct, Anxiety disorder, unspecifie d F41.9 [facility] [address] [id number] [address] [place] [address] Aug, Anxiety disorder, unspecifie d F41.9 [facility] [address] [id number] [address] [place] [address] Jul, Anxiety disorder, unspecifie d F41.9 [facility] [address] [id number] [address] [place] [address] Jul, Anxiety disorder, unspecifie d F41.9 [facility] [address] [id number] [address] [place] [address] June, Anxiety disorder, unspecifie d F41.9 [facility] [address] [id number] [address] [place] [address] June, Anxiety disorder, unspecifie d F41.9 [facility] [address] [id number] [address] [place] [address] May, Anxiety disorder, unspecifie d F41.9 [facility] [address] [id number] [address] [place] [address] Apr, Anxiety disorder, unspecifie d F41.9 [facility] [address] [id number] [address] [place] [address] Apr, Anxiety disorder, unspecifie d F41.9 [facility] [address] [id number] [address] [place] [address] Mar, Anxiety disorder, unspecifie d F41.9 [facility] [address] [id number] [address] [place] [address] Feb, Anxiety disorder, unspecifie d F41.9 [facility] [address] [address] Jan, Anxiety disorder, unspecifie d F41.9 [facility] [address] [address] Dec, Anxiety disorder, unspecifie d F41.9 [facility] [address] [address] Nov, Anxiety disorder, unspecifie d F41.9 [facility] [address] [address] Oct, Anxiety disorder, unspecifie d 300.00 [facility] [address] [address] Oct, Anxiety disorder, unspecifie d 300.00 [facility] [address] [address] Sep, Anxiety disorder, unspecifie d 300.00 [facility] [address] [address] Sep, Anxiety disorder, unspecifie d 300.00 [facility] [address] [place] [id number] [place] [address] Sep, Anxiety disorder, unspecifie d 300.00 [facility] [address] [address] Sep, Anxiety disorder, unspecifie d 300.00 [facility] [address] [address] Aug, Anxiety disorder, unspecifie d 300.00 [facility] [address] [place] [id number] [address] [place] [address] June, Anxiety disorder, unspecifie d 300.00 [facility] [address] [id number] [address] [place] [address], [place] [address] Apr, [facility] [address] [id number] [address] [place] [address], [place] [address] Apr, [facility] [address] [id number] [address] [place] [address], [place] [address] Apr, [facility] [address] [id number] [address] [place] [address], [place] [address] Apr, [facility] [address] [id number] [address] [place] [address], [place] [address] Mar, [facility] [address] [id number] [address] [place] [address], [place] [address] Mar, 2014 [facility] [address] [id number] [address] [place] [address], [place] [address] Mar, 2014 [facility] [address] [id number] [address] [place] [address], [place] [address] Mar, [facility] [address] [id number] [address] [place] [address], [place] [address] Aug, [facility] [address] [id number] [address] [place] [address], [place] [address] Aug, [facility] [address] [id number] [address] [place] [address], [place] [address] Apr, [facility] [address] [id number] [address] [place] [address], [place] [address] Apr, [facility] [address] [id number] [address] [place] [address], [place] [address] Mar, [facility] [address] [id number] [address] [place] [address], [place] [address] Mar, [facility] [address] [id number] [address] [place] [address], [place] [address] Feb, [facility] [address] [id number] [address] [place] [address], [place] [address] Feb, [facility] [address] [id number] [address] [place] [address], [place] [address] Feb, [facility] [address] [id number] [address] [place] [address], [place] [address] Feb, [facility] [address] [id number] [address] [place] [address], [place] [address] Oct, [facility] [address] [id number] [address] [place] [address], [place] [address] Sep, [facility] [address] [id number] [address] [place] [address], [place] [address] Aug, [facility] [address] [id number] [address] [place] [address], [place] [address] May, [facility] [address] [id number] [address] [place] [address], [place] [address] Apr, [facility] [address] [id number] [address] [place] [address], [place] [address] Mar, [facility] [address] [id number] [address] [place] [address], [place] [address] Mar, [facility] [address] [id number] [address] [place] [address], [place] [address] Feb, [facility] [address] [id number] [address] [place] [address], [place] [address] Jan, [facility] [address] [id number] [address] [place] [address], [place] [address] Jan, [facility] [address] [id number] [address] [place] [address], [place] [address] Dec, [facility] [address] [id number] [address] [place] [address], [place] [address] Dec, [facility] [address] [id number] [address] [place] [address], [place] [address] Nov, [facility] [address] [id number] [address] [place] [address], [place] [address] 16 Nov, 2011 [facility] [address] [id number] [address] [place] [address], [place] [address] Oct, [facility] [address] [id number] [address] [place] [address], [place] [address] Sep, [facility] [address] [id number] [address] [place] [address], [place] [address] Sep, [facility] [address] [id number] [address] [place] [address], [place] [address] Aug, [facility] [address] [id number] [address] [place] [address], [place] [address] Aug, [facility] [address] [id number] [address] [place] [address], [place] [address] Jul, [facility] [address] [id number] [address] [place] [address], [place] [address] Jul, [facility] [address] [id number] [address] [place] [address], [place] [address] June, [facility] [address] [id number] [address] [place] [address], [place] [address] June, [facility] [address] [id number] [address] [place] [address], [place] [address] May, [facility] [address] [id number] [address] [place] [address], [place] [address] May, [facility] [address] [id number] [address] [place] [address], [place] [address] May, [facility] [address] [id number] [address] [place] [address], [place] [address] Apr, [facility] [address] [id number] [address] [place] [address], [place] [address] Apr, [facility] [address] [id number] [address] [place] [address], [place] [address] Mar, [facility] [address] [facility] [id number] [address] [place] [address] Feb, [facility] [address] [facility] [id number] [address] [place] [address] Feb, [facility] [address] [facility] [id number] [address] [place] [address] Dec, [facility] [address] [facility] [id number] [address] [place] [address] Nov, IMMUNIZATIONS No Known Immunizations SOCIAL HISTORY Never Assessed REASON FOR VISIT PLAN OF CARE VITAL SIGNS MEDICATIONS Unknown Medications RESULTS No Results PROCEDURES Procedure Date Ordered Result Body Site PSYTX PT&/FAMILY 45 MINUTES April 18, 2014 INSTRUCTIONS MEDICATIONS ADMINISTERED No Known Medications
--- OUTSIDE RECORDS SUMMARY | 2019-09-10 15:40 | XMS REPORT ---
Author Author Aneesh JOSE Organization [facility] Address [address] [place] [address] Care Team Providers Care Engineering Systems Analyst Name Role Phone DAMON MIRA Unavailable PROBLEMS Type Condition ICD9-CM Code JUD34-HJ Code Onset Dates Condition S tatus SNOMED Code Problem Anxiety disorder, unspecified F41.9 Active [id number] ALLERGIES No Information ENCOUNTERS Encounter Location Date Diagnosis [place] [address] [place] [id number] [address] [place] [phone] June, Anxiety disorder, unspecifie d F41.9 [place] [address] [place] [id number] [address] [place] [phone] May, Anxiety disorder, unspecifie d F41.9 [facility] [address] [place] [id number] [address] [place] [id number] Apr, Anxiety disorder, unspecifie d F41.9 [place] [address] [place] [id number] [address] [place] [id number] Apr, [facility] [address] [place] [address] [id number] [address] [place] [address] Feb, Anxiety disorder, unspecifie d F41.9 [facility] [address] [place] [id number] [address] [place] [phone] Jan, Anxiety disorder, unspecifie d F41.9 [facility] [address] [place] [id number] [address] [place] [address] Dec, Anxiety disorder, unspecifie d F41.9 [facility] [address] [place] [id number] [address] [place] [phone] Nov, Anxiety disorder, unspecifie d F41.9 [place] [address] [facility] [id number] [address] [place] [address] Oct, Anxiety disorder, unspecifie d F41.9 [facility] [address] [facility] [id number] [address] [place] [address] Sep, Anxiety disorder, unspecifie d F41.9 [facility] [address] [facility] [id number] [address] [place] [address] Aug, Anxiety disorder, unspecifie d F41.9 [facility] [address] [facility] [id number] [address] [place] [id number] Jul, Anxiety disorder, unspecifie d F41.9 [facility] [address] [facility] [id number] [address] [place] [id number] June, Anxiety disorder, unspecifie d F41.9 [facility] [address] [facility] [id number] [address] [place] [id number] May, Anxiety disorder, unspecifie d F41.9 [facility] [address] [facility] [id number] [address] [place] [address] May, Anxiety disorder, unspecifie d F41.9 [facility] [address] [facility] [id number] [address] [place] [phone] Feb, Anxiety disorder, unspecifie d F41.9 [facility] [address] [facility] [id number] [address] [place] [phone] May, Anxiety disorder, unspecifie d F41.9 [facility] [address] [facility] [id number] [address] [place] [phone] Apr, Anxiety disorder, unspecifie d F41.9 [facility] [address] [facility] [id number] [address] [place] [phone] Mar, Anxiety disorder, unspecifie d F41.9 [facility] [address] [facility] [id number] [address] [place] [phone] Oct, Anxiety disorder, unspecifie d F41.9 [facility] [address] [id number] [address] [place] [id number] Oct, Anxiety disorder, unspecifie d F41.9 [facility] [address] [id number] [address] [place] [address] Aug, Anxiety disorder, unspecifie d F41.9 [facility] [address] [id number] [address] [place] [id number] Jul, Anxiety disorder, unspecifie d F41.9 [facility] [address] [id number] [address] [place] [id number] Jul, Anxiety disorder, unspecifie d F41.9 [facility] [address] [facility] [id number] [address] [place] [phone] June, Anxiety disorder, unspecifie d F41.9 [facility] [address] [facility] [id number] [address] [place] [phone] June, Anxiety disorder, unspecifie d F41.9 [facility] [address] [facility] [id number] [address] [place] [id number] May, Anxiety disorder, unspecifie d F41.9 [facility] [address] [facility] [id number] [address] [place] [address] Apr, Anxiety disorder, unspecifie d F41.9 [facility] [address] [facility] [id number] [address] [place] [phone] Apr, Anxiety disorder, unspecifie d F41.9 [facility] [address] [facility] [id number] [address] [place] [id number] Mar, Anxiety disorder, unspecifie d F41.9 [facility] [address] [facility] [id number] [address] [place] [id number] Feb, Anxiety disorder, unspecifie d F41.9 [facility] [address] [place] [id number] [address] [place] [id number] Jan, Anxiety disorder, unspecifie d F41.9 [facility] [address] [place] [id number] [address] [place] [phone] Dec, Anxiety disorder, unspecifie d F41.9 [facility] [address] [place] [id number] [address] [place] [id number] Nov, Anxiety disorder, unspecifie d F41.9 [facility] [address] [place] [id number] [address] [place] [phone] Oct, Anxiety disorder, unspecifie d 300.00 [facility] [address] [address] Oct, Anxiety disorder, unspecifie d 300.00 [facility] [address] [place] [id number] [address] [place] [id number] Sep, Anxiety disorder, unspecifie d 300.00 [facility] [address] [place] [id number] [address] [place] [phone] Sep, Anxiety disorder, unspecifie d 300.00 [facility] [address] [place] [id number] [address] [place] [id number] Sep, Anxiety disorder, unspecifie d 300.00 [facility] [address] [place] [id number] [address] [place] [id number] Sep, Anxiety disorder, unspecifie d 300.00 [facility] [address] [place] [id number] [address] [place] [id number] Aug, Anxiety disorder, unspecifie d 300.00 [facility] [address] [place] [id number] [address] [place] [phone] June, Anxiety disorder, unspecifie d 300.00 [facility] [address] [place] [id number] [address] [place] [phone] Apr, [facility] [address] [id number] [address] [place] [address], [place] [address] Apr, [facility] [address] [id number] [address] [place] [address], [place] [address] Apr, [facility] [address] [id number] [address] [place] [address], [place] [address] Apr, [facility] [address] [id number] [address] [place] [address], [place] [address] Mar, 2014 [facility] [address] [id number] [address] [place] [address], [place] [address] Mar, 2014 [facility] [address] [id number] [address] [place] [address], [place] [address] Mar, 2014 [facility] [address] [id number] [address] [place] [address], [place] [address] Mar, [facility] [address] [id number] [address] [place] [address], [place] [address] Aug, [facility] [address] [id number] [address] [place] [address], [place] [address] Aug, [facility] [address] [id number] [address] [place] [address], [place] [address] Apr, [facility] [address] [id number] [address] [place] [address], [place] [address] Apr, [facility] [address] [id number] [address] [place] [address], [place] [address] Mar, [facility] [address] [id number] [address] [place] [address], [place] [address] Mar, [facility] [address] [id number] [address] [place] [address], [place] [address] Feb, [facility] [address] [id number] [address] [place] [address], [place] [address] Feb, [facility] [address] [id number] [address] [place] [address], [place] [address] Feb, [facility] [address] [id number] [address] [place] [address], [place] [address] Feb, [facility] [address] [id number] [address] [place] [address], [place] [address] Oct, [facility] [address] [id number] [address] [place] [address], [place] [address] Sep, [facility] [address] [id number] [address] [place] [address], [place] [address] Aug, [facility] [address] [id number] [address] [place] [address], [place] [address] May, [facility] [address] [id number] [address] [place] [address], [place] [address] Apr, [facility] [address] [id number] [address] [place] [address], [place] [address] Mar, [facility] [address] [id number] [address] [place] [address], [place] [address] Mar, [facility] [address] [id number] [address] [place] [address], [place] [address] Feb, [facility] [address] [id number] [address] [place] [address], [place] [address] Jan, [facility] [address] [id number] [address] [place] [address], [place] [address] Jan, [facility] [address] [id number] [address] [place] [address] Dec, [facility] [address] [id number] [address] [place] [address], [place] [address] Dec, [facility] [address] [id number] [address] [place] [address], [place] [address] Nov, [facility] [address] [id number] [address] [place] [address], [place] [address] Nov, [facility] [address] [id number] [address] [place] [address], [place] [address] Oct, [facility] [address] [id number] [address] [place] [address], [place] [address] Sep, [facility] [address] [id number] [address] [place] [address], [place] [address] Sep, [facility] [address] [id number] [address] [place] [address], [place] [address] Aug, [facility] [address] [id number] [address] [place] [address], [place] [address] Aug, [facility] [address] [id number] [address] [place] [address], [place] [address] Jul, [facility] [address] [id number] [address] [place] [address], [place] [address] Jul, [facility] [address] [id number] [address] [place] [address], [place] [address] June, [facility] [address] [id number] [address] [place] [address], [place] [address] June, [facility] [address] [id number] [address] [place] [address], [place] [address] May, [facility] [address] [id number] [address] [place] [address], [place] [address] May, [facility] [address] [id number] [address] [place] [address], [place] [address] May, [facility] [address] [id number] [address] [place] [address], [place] [address] Apr, [facility] [address] [id number] [address] [place] [address], [place] [address] Apr, [facility] [address] [id number] [address] [place] [address], [place] [address] Mar, [facility] [address] [id number] [address] [place] [address], [place] [address] Feb, [facility] [address] [facility] [id number] [address] [place] [address] Feb, [facility] [address] [facility] [id number] [address] [place] [address] Dec, [facility] [address] [facility] [id number] [address] [place] [address] Nov, IMMUNIZATIONS No Known Immunizations SOCIAL HISTORY Never Assessed REASON FOR VISIT PLAN OF CARE VITAL SIGNS MEDICATIONS Unknown Medications RESULTS No Results PROCEDURES No Known procedures INSTRUCTIONS MEDICATIONS ADMINISTERED No Known Medications
--- OUTSIDE RECORDS SUMMARY | 2019-09-10 15:40 | XMS REPORT ---
Author Author Aneesh JOSE Organization [facility] Address [address] [place] [address] Care Team Providers Care Salvage Mend Worker Name Role Phone MIRA JOSE Unavailable PROBLEMS Type Condition ICD9-CM Code [id number] Code Onset Dates Condition S tatus SNOMED Code Problem Anxiety disorder, unspecified F41.9 Active [id number] ALLERGIES No Information ENCOUNTERS Encounter Location Date Diagnosis [place] [address] [id number] Aug, [place] [address] [address] June, Anxiety disorder, unspecifie d F41.9 [facility] [address] [place] [id number] [address] [place] [address] May, Anxiety disorder, unspecifie d F41.9 [facility] [address] [place] [id number] [address] [place] [address] Apr, Anxiety disorder, unspecifie d F41.9 [facility] [address] [place] [id number] [place] [address] Apr, [facility] [address] [place] [id number] [address] [place] [id number] Feb, Anxiety disorder, unspecifie d F41.9 [facility] [address] [place] [id number] [address] [place] [id number] Jan, Anxiety disorder, unspecifie d F41.9 [facility] [address] [place] [id number] [place] [address] Dec, Anxiety disorder, unspecifie d F41.9 [facility] [address] [place] [id number] [place] [id number] Nov, Anxiety disorder, unspecifie d F41.9 [facility] [address] [facility] [address] [facility] [id number] [address] [place] [phone] Oct, Anxiety disorder, unspecifie d F41.9 [facility] [address] [facility] [address] [facility] [id number] [address] [place] [id number] Sep, Anxiety disorder, unspecifie d F41.9 [facility] [address] [facility] [address] [facility] [id number] [address] [place] [id number] Aug, Anxiety disorder, unspecifie d F41.9 [facility] [address] [facility] [id number] [address] [place] [id number] Jul, Anxiety disorder, unspecifie d F41.9 [facility] [address] [facility] [id number] [address] [place] [id number] June, Anxiety disorder, unspecifie d F41.9 [facility] [address] [address] [facility] [id number] [address] [place] [phone] May, Anxiety disorder, unspecifie d F41.9 [facility] [address] [facility] [address] [facility] [id number] [address] [place] [phone] May, Anxiety disorder, unspecifie d F41.9 [facility] [address] [address] [facility] [id number] [address] [place] [id number] Feb, Anxiety disorder, unspecifie d F41.9 [facility] [address] [address] [facility] [id number] [address] [place] [id number] May, Anxiety disorder, unspecifie d F41.9 [facility] [address] [address] [facility] [id number] [address] [place] [id number] Apr, Anxiety disorder, unspecifie d F41.9 [facility] [address] [facility] [address] [facility] [id number] [address] [place] [id number] Mar, Anxiety disorder, unspecifie d F41.9 [facility] [address] [id number] [address] [place] [id number] 14 Oct, 2015 Anxiety disorder, unspecifie d F41.9 [facility] [address] [id number] [address] [place] [id number] Oct, Anxiety disorder, unspecifie d F41.9 [facility] [address] [id number] [address] [place] [id number] Aug, Anxiety disorder, unspecifie d F41.9 [facility] [address] [id number] [address] [place] [id number] Jul, Anxiety disorder, unspecifie d F41.9 [facility] [address] [address] [facility] [id number] [address] [place] [phone] Jul, Anxiety disorder, unspecifie d F41.9 [facility] [address] [address] [facility] [id number] [address] [place] [id number] June, Anxiety disorder, unspecifie d F41.9 [facility] [address] [id number] [address] [place] [phone] June, Anxiety disorder, unspecifie d F41.9 [facility] [address] [facility] [address] [facility] [id number] [address] [place] [phone] May, Anxiety disorder, unspecifie d F41.9 [facility] [address] [id number] [address] [place] [id number] Apr, Anxiety disorder, unspecifie d F41.9 [facility] [address] [id number] [address] [place] [id number] Apr, Anxiety disorder, unspecifie d F41.9 [facility] [address] [id number] [address] [place] [id number] Mar, Anxiety disorder, unspecifie d F41.9 [facility] [address] [facility] [address] [facility] [id number] [address] [place] [id number] Feb, Anxiety disorder, unspecifie d F41.9 [facility] [address] [id number] Jan, Anxiety disorder, unspecifie d F41.9 [facility] [address] [place] [id number] [address] [place] [id number] Dec, Anxiety disorder, unspecifie d F41.9 [facility] [address] [id number] Nov, Anxiety disorder, unspecifie d F41.9 [facility] [address] [id number] Oct, Anxiety disorder, unspecifie d 300.00 [facility] [address] [id number] Oct, Anxiety disorder, unspecifie d 300.00 [facility] [address] [id number] Sep, Anxiety disorder, unspecifie d 300.00 [facility] [address] [id number] Sep, Anxiety disorder, unspecifie d 300.00 [facility] [address] [place] [id number] [address] [place] [id number] Sep, Anxiety disorder, unspecifie d 300.00 [facility] [address] [place] [id number] [address] [place] [id number] Sep, Anxiety disorder, unspecifie d 300.00 [facility] [address] [id number] Aug, Anxiety disorder, unspecifie d 300.00 [facility] [address] [place] [id number] [address] [place] [id number] June, Anxiety disorder, unspecifie d 300.00 [facility] [address] [place] [address] Apr, [facility] [address] [id number] [address] [place] [address], [place] [address] Apr, [facility] [address] [id number] [address] [place] [address], [place] [address] Apr, [facility] [address] [id number] [address] [place] [address], [place] [address] Apr, [facility] [address] [id number] [address] [place] [address], [place] [address] Mar, [facility] [address] [id number] [address] [place] [address], [place] [id number] Mar, 2014 [facility] [address] [id number] [address] [place] [address], [place] [id number] Mar, 2014 [facility] [address] [id number] [address] [place] [address], [place] [address] Mar, [facility] [address] [id number] [address] [place] [address], [place] [address] Aug, [facility] [address] [id number] [address] [place] [address], [place] [address] Aug, [facility] [address] [id number] [address] [place] [address], [place] [address] Apr, [facility] [address] [id number] [address] [place] [address], [place] [address] Apr, [facility] [address] [id number] [address] [place] [address], [place] [address] Mar, [facility] [address] [id number] [address] [place] [address], [place] [address] Mar, [facility] [address] [id number] [address] [place] [address], [place] [address] Feb, [facility] [address] [id number] [address] [place] [address], [place] [address] Feb, [facility] [place] [address] [id number] [address] [place] [address], [place] [address] Feb, [facility] [address] [id number] [address] [place] [address], [place] [address] Feb, [facility] [address] [id number] [address] [place] [address], [place] [address] Oct, [facility] [address] [id number] [address] [place] [address], [place] [address] Sep, [facility] [address] [id number] [address] [place] [address], [place] [address] Aug, [facility] [address] [id number] [address] [place] [address], [place] [address] May, [facility] [address] [id number] [address] [place] [address], [place] [address] Apr, [facility] [address] [id number] [address] [place] [address], [place] [address] Mar, [facility] [place] [address] [id number] [address] [place] [address], [place] [address] Mar, [facility] [place] [address] [id number] [address] [place] [address], [place] [address] Feb, [facility] [place] [address] [id number] [address] [place] [address], [place] [address] Jan, [facility] [address] [id number] [address] [place] [address], [place] [address] Jan, [facility] [address] [id number] [address] [place] [address], [place] [address] Dec, [facility] [address] [id number] [address] [place] [address], [place] [address] Dec, [facility] [address] [id number] [address] [place] [address], [place] [address] Nov, [facility] [address] [id number] [address] [place] [address], [place] [id number] 16 Nov, 2011 [facility] [address] [id number] [address] [place] [address], [place] [address] Oct, [facility] [address] [id number] [address] [place] [address], [place] [address] Sep, [facility] [address] [id number] [address] [place] [address], [place] [address] Sep, [facility] [address] [id number] [address] [place] [address], [place] [address] Aug, [facility] [address] [id number] [address] [place] [address], [place] [address] Aug, [facility] [address] [id number] [address] [place] [address], [place] [id number] Jul, [facility] [address] [id number] [address] [place] [address], [place] [address] Jul, [facility] [address] [id number] [address] [place] [address], [place] [address] June, [facility] [address] [id number] [address] [place] [address], [place] [address] June, [facility] [address] [id number] [address] [place] [address], [place] [address] May, [facility] [address] [id number] [address] [place] [address], [place] [address] May, [facility] [address] [id number] [address] [place] [address], [place] [address] May, [facility] [address] [id number] [address] [place] [address], [place] [address] Apr, [facility] [address] [id number] [address] [place] [address], [place] [address] Apr, [facility] [address] [id number] [address] [place] [address], [place] [address] Mar, [facility] [address] [address] [facility] [id number] [address] [place] [id number] Feb, [facility] [address] [facility] [id number] [address] [place] [id number] Feb, [facility] [address] [facility] [id number] [address] [place] [id number] Dec, [facility] [address] [facility] [id number] [address] [place] [id number] Nov, IMMUNIZATIONS No Known Immunizations SOCIAL HISTORY Never Assessed REASON FOR VISIT PLAN OF CARE VITAL SIGNS MEDICATIONS Unknown Medications RESULTS No Results PROCEDURES Procedure Date Ordered Result Body Site PSYTX PT&/FAMILY 45 MINUTES September 01, 2012 INSTRUCTIONS MEDICATIONS ADMINISTERED No Known Medications
--- OUTSIDE RECORDS SUMMARY | 2019-09-10 15:40 | XMS REPORT ---
Author Author Aneesh BURNETT [facility] Address [address] [place] [address] Care Team Providers Care Car Wash Attendant Name Role Phone KENIA BURNETT Unavailable PROBLEMS Type Condition ICD9-CM Code [id number] Code Onset Dates Condition S tatus SNOMED Code Problem Anxiety disorder, unspecified F41.9 Active [id number] ALLERGIES No Information ENCOUNTERS Encounter Location Date Diagnosis [place] [address] [address] Dec, [place] [address] [address] Nov, Anxiety disorder, unspecifie d F41.9 [id number] [id number] [place] [phone] Oct, Anxiety disorder, unspecifie d F41.9 [place] [address] [address] [place] [id number] [address] [place] [address] Sep, Anxiety disorder, unspecifie d F41.9 [place] [address] [address] [place] [id number] [address] [place] [id number] Aug, Anxiety disorder, unspecifie d F41.9 [place] [address] [place] [id number] [address] [place] [phone] Jul, Anxiety disorder, unspecifie d F41.9 [place] [address] [address] [place] [id number] [address] [place] [phone] June, Anxiety disorder, unspecifie d F41.9 [place] [address] [address] [place] [id number] [address] [place] [phone] May, Anxiety disorder, unspecifie d F41.9 [facility] [address] [id number] [address] [place] [phone] May, Anxiety disorder, unspecifie d F41.9 [facility] [address] [facility] [id number] [address] [place] [phone] Feb, Anxiety disorder, unspecifie d F41.9 [facility] [address] [facility] [id number] [address] [place] [phone] May, Anxiety disorder, unspecifie d F41.9 [facility] [address] [facility] [id number] [address] [place] [phone] Apr, Anxiety disorder, unspecifie d F41.9 [facility] [address] [facility] [id number] [address] [place] [phone] Mar, Anxiety disorder, unspecifie d F41.9 [facility] [address] [facility] [id number] [address] [place] [phone] Oct, Anxiety disorder, unspecifie d F41.9 [facility] [address] [facility] [id number] [address] [place] [phone] Oct, Anxiety disorder, unspecifie d F41.9 [facility] [address] [facility] [id number] [address] [place] [phone] Aug, Anxiety disorder, unspecifie d F41.9 [facility] [address] [facility] [id number] [address] [place] [phone] Jul, Anxiety disorder, unspecifie d F41.9 [facility] [address] [facility] [id number] [address] [place] [phone] Jul, Anxiety disorder, unspecifie d F41.9 [facility] [address] [facility] [id number] [address] [place] [phone] June, Anxiety disorder, unspecifie d F41.9 [facility] [address] [facility] [id number] [address] [place] [phone] June, Anxiety disorder, unspecifie d F41.9 [facility] [address] [facility] [id number] [address] [place] [phone] May, Anxiety disorder, unspecifie d F41.9 [facility] [address] [facility] [id number] [address] [place] [phone] Apr, Anxiety disorder, unspecifie d F41.9 [facility] [address] [facility] [id number] [address] [place] [phone] Apr, Anxiety disorder, unspecifie d F41.9 [facility] [address] [facility] [id number] [address] [place] [phone] Mar, Anxiety disorder, unspecifie d F41.9 [facility] [address] [place] [id number] [address] [place] [phone] Feb, Anxiety disorder, unspecifie d F41.9 [facility] [address] [place] [id number] [address] [place] [phone] Jan, Anxiety disorder, unspecifie d F41.9 [facility] [address] [place] [id number] [address] [place] [phone] Dec, Anxiety disorder, unspecifie d F41.9 [facility] [address] [place] [id number] [address] [place] [phone] Nov, Anxiety disorder, unspecifie d F41.9 [facility] [address] [place] [id number] [address] [place] [phone] Oct, Anxiety disorder, unspecifie d 300.00 [facility] [address] [place] [id number] [address] [place] [id number] Oct, Anxiety disorder, unspecifie d 300.00 [facility] [address] [facility] [id number] [address] [place] [phone] Sep, Anxiety disorder, unspecifie d 300.00 [facility] [address] [place] [id number] [place] [phone] Sep, Anxiety disorder, unspecifie d 300.00 [facility] [address] [facility] [id number] [address] [place] [phone] Sep, Anxiety disorder, unspecifie d 300.00 [facility] [address] [facility] [id number] [address] [place] [phone] Sep, Anxiety disorder, unspecifie d 300.00 [facility] [address] [facility] [id number] [address] [place] [phone] Aug, Anxiety disorder, unspecifie d 300.00 [facility] [address] [facility] [id number] [address] [place] [phone] June, Anxiety disorder, unspecifie d 300.00 [facility] [address] [facility] [id number] [address] [place] [phone] Apr, [facility] [address] [facility] [id number] [address] [place] [phone] Apr, [facility] [address] [id number] [address] [place] [phone] Apr, [facility] [address] [facility] [id number] [address] [place] [id number] Apr, [facility] [address] [facility] [id number] [address] [place] [phone] Mar, [facility] [address] [facility] [id number] [address] [place] [phone] Mar, [facility] [address] [id number] [address] [place] [phone] Mar, [facility] [address] [facility] [id number] [address] [place] [phone] Mar, [facility] [address] [facility] [id number] [address] [place] [phone] Aug, [facility] [address] [id number] [address] [place] [address], [place] [address] 15 Aug, 2013 [facility] [address] [id number] [address] [place] [address], [place] [address] Apr, [facility] [address] [id number] [address] [place] [address], [place] [address] Apr, [facility] [address] [id number] [address] [place] [address], [place] [address] Mar, [facility] [address] [id number] [address] [place] [address], [place] [address] Mar, [facility] [address] [id number] [address] [place] [address], [place] [address] Feb, [facility] [address] [id number] [address] [place] [address], [place] [address] Feb, [facility] [address] [id number] [address] [place] [address], [place] [address] Feb, [facility] [address] [id number] [address] [place] [address], [place] [address] Feb, [facility] [address] [id number] [address] [place] [address], [place] [address] Oct, [facility] [address] [id number] [address] [place] [address], [place] [address] Sep, [facility] [address] [id number] [address] [place] [address], [place] [address] Aug, [facility] [address] [id number] [address] [place] [address], [place] [address] May, [facility] [address] [id number] [address] [place] [address], [place] [address] Apr, [facility] [address] [id number] [address] [place] [address], [place] [address] Mar, [facility] [address] [id number] [address] [place] [address], [place] [address] Mar, [facility] [address] [id number] [address] [place] [address], [place] [address] Feb, [facility] [address] [id number] [address] [place] [address], [place] [address] Jan, [facility] [address] [id number] [address] [place] [address], [place] [address] Jan, [facility] [address] [id number] [address] [place] [address], [place] [address] Dec, [facility] [address] [id number] [address] [place] [address], [place] [address] Dec, [facility] [address] [id number] [address] [place] [address], [place] [address] Nov, [facility] [address] [id number] [address] [place] [address], [place] [address] Nov, [facility] [address] [id number] [address] [place] [address], [place] [address] Oct, [facility] [address] [id number] [address] [place] [address], [place] [address] Sep, [facility] [address] [id number] [address] [place] [address], [place] [address] Sep, [facility] [address] [id number] [address] [place] [address], [place] [address] Aug, [facility] [address] [id number] [address] [place] [address], [place] [address] Aug, [facility] [address] [id number] [address] [place] [address], [place] [address] Jul, [facility] [address] [id number] [address] [place] [address], [place] [address] Jul, [facility] [address] [id number] [address] [place] [address], [place] [address] June, [facility] [address] [id number] [address] [place] [id number] June, [facility] [address] [id number] [address] [place] [phone] May, [facility] [address] [id number] [address] [place] [id number] May, [facility] [address] [id number] [address] [place] [id number] May, [facility] [address] [id number] [address] [place] [id number] Apr, [facility] [address] [id number] [address] [place] [id number] Apr, [facility] [address] [id number] [address] [place] [address] Mar, [facility] [address] [id number] [address] [place] [id number] Feb, [facility] [address] [id number] [address] [place] [address] Feb, [facility] [address] [id number] [address] [place] [id number] Dec, [facility] [address] [id number] [address] [place] [phone] Nov, IMMUNIZATIONS No Known Immunizations SOCIAL HISTORY Never Assessed REASON FOR VISIT f/u PLAN OF CARE Activity Details Follow Up Next available Reason: F/U VITAL SIGNS MEDICATIONS Unknown Medications RESULTS No Results PROCEDURES Procedure Date Ordered Result Body Site Psychotherapy, patient &/family, 45 minutes, established patient Nov 16, 2017 INSTRUCTIONS MEDICATIONS ADMINISTERED No Known Medications
--- OUTSIDE RECORDS SUMMARY | 2019-09-10 15:41 | XMS REPORT ---
Author Author Aneesh BURNETT [facility] Address [address] [place] [address] Care Team Providers Care Gravel Machine Operator Name Role Phone KENIA BURNETT Unavailable PROBLEMS Type Condition ICD9-CM Code [id number] Code Onset Dates Condition S tatus SNOMED Code Problem Anxiety disorder, unspecified F41.9 Active [id number] ALLERGIES No Information ENCOUNTERS Encounter Location Date Diagnosis [place] [address] [address] Oct, [place] [address] [address] Sep, Anxiety disorder, unspecifie d F41.9 [place] [address] [address] [place] [id number] [address] [place] [address] Aug, Anxiety disorder, unspecifie d F41.9 [place] [address] [address] [place] [id number] [address] [place] [address] Jul, Anxiety disorder, unspecifie d F41.9 [place] [address] [address] [place] [id number] [address] [place] [address] June, Anxiety disorder, unspecifie d F41.9 [place] [address] [place] [id number] [address] [place] [address] May, Anxiety disorder, unspecifie d F41.9 [place] [address] [place] [id number] [address] [place] [address] May, Anxiety disorder, unspecifie d F41.9 [place] [address] [place] [id number] [address] [place] [address] Feb, Anxiety disorder, unspecifie d F41.9 [facility] [address] [id number] [address] [place] [id number] May, Anxiety disorder, unspecifie d F41.9 [facility] [address] [id number] [address] [place] [address] Apr, Anxiety disorder, unspecifie d F41.9 [facility] [address] [facility] [id number] [address] [place] [address] Mar, Anxiety disorder, unspecifie d F41.9 [facility] [address] [id number] [address] [place] [address] Oct, Anxiety disorder, unspecifie d F41.9 [facility] [address] [facility] [id number] [address] [place] [id number] Oct, Anxiety disorder, unspecifie d F41.9 [facility] [address] [facility] [id number] [address] [place] [address] Aug, Anxiety disorder, unspecifie d F41.9 [facility] [address] [facility] [id number] [address] [place] [address] Jul, Anxiety disorder, unspecifie d F41.9 [facility] [address] [facility] [id number] [address] [place] [address] Jul, Anxiety disorder, unspecifie d F41.9 [facility] [address] [facility] [id number] [address] [place] [address] June, Anxiety disorder, unspecifie d F41.9 [facility] [address] [facility] [id number] [address] [place] [id number] June, Anxiety disorder, unspecifie d F41.9 [facility] [address] [facility] [id number] [address] [place] [address] May, Anxiety disorder, unspecifie d F41.9 [facility] [address] [facility] [id number] [address] [place] [address] Apr, Anxiety disorder, unspecifie d F41.9 [facility] [address] [facility] [id number] [address] [place] [address] Apr, Anxiety disorder, unspecifie d F41.9 [facility] [address] [facility] [id number] [address] [place] [address] Mar, Anxiety disorder, unspecifie d F41.9 [facility] [address] [place] [id number] [address] [place] [address] Feb, Anxiety disorder, unspecifie d F41.9 [facility] [address] [place] [id number] [address] [place] [address] Jan, Anxiety disorder, unspecifie d F41.9 [facility] [address] [place] [id number] [address] [place] [address] Dec, Anxiety disorder, unspecifie d F41.9 [facility] [address] [place] [id number] [address] [place] [address] Nov, Anxiety disorder, unspecifie d F41.9 [facility] [address] [place] [id number] [address] [place] [address] Oct, Anxiety disorder, unspecifie d 300.00 [facility] [address] [place] [id number] [address] [place] [address] Oct, Anxiety disorder, unspecifie d 300.00 [facility] [address] [place] [id number] [address] [place] [address] Sep, Anxiety disorder, unspecifie d 300.00 [facility] [address] [place] [id number] [address] [place] [address] Sep, Anxiety disorder, unspecifie d 300.00 [facility] [address] [facility] [id number] [address] [place] [id number] Sep, Anxiety disorder, unspecifie d 300.00 [facility] [address] [place] [id number] [address] [place] [address] Sep, Anxiety disorder, unspecifie d 300.00 [facility] [address] [id number] [address] [place] [address] Aug, Anxiety disorder, unspecifie d 300.00 [facility] [address] [id number] [address] [place] [address] June, Anxiety disorder, unspecifie d 300.00 [facility] [address] [id number] [address] [place] [address] Apr, [facility] [address] [id number] [address] [place] [address] Apr, [facility] [address] [id number] [address] [place] [address] Apr, [facility] [address] [id number] [address] [place] [address] Apr, [facility] [address] [id number] [address] [place] [address] Mar, [facility] [address] [id number] [address] [place] [address] Mar, [facility] [address] [id number] [address] [place] [id number] Mar, [facility] [address] [id number] [address] [place] [address] Mar, [facility] [address] [id number] [address] [place] [address] Aug, [facility] [address] [id number] [address] [place] [address] Aug, [facility] [address] [id number] [address] [place] [address] Apr, [facility] [address] [id number] [address] [place] [address] Apr, [facility] [address] [id number] [address] [place] [address], [place] [address] Mar, [facility] [address] [id number] [address] [place] [address], [place] [address] Mar, [facility] [address] [id number] [address] [place] [address], [place] [address] Feb, [facility] [address] [id number] [address] [place] [address], [place] [address] Feb, [facility] [address] [id number] [address] [place] [address], [place] [address] Feb, [facility] [address] [id number] [address] [place] [address], [place] [address] Feb, [facility] [address] [id number] [address] [place] [address], [place] [address] Oct, [facility] [address] [id number] [address] [place] [address], [place] [address] Sep, [facility] [address] [id number] [address] [place] [address], [place] [address] Aug, [facility] [address] [id number] [address] [place] [address], [place] [address] May, [facility] [address] [id number] [address] [place] [address], [place] [address] Apr, [facility] [address] [id number] [address] [place] [address] Mar, [facility] [address] [id number] [address] [place] [address], [place] [address] Mar, [facility] [address] [id number] [address] [place] [address], [place] [address] Feb, [facility] [address] [id number] [address] [place] [address], [place] [address] Jan, [facility] [address] [id number] [address] [place] [address], [place] [address] Jan, [facility] [address] [id number] [address] [place] [address], [place] [address] Dec, [facility] [address] [id number] [address] [place] [address], [place] [address] Dec, [facility] [address] [id number] [address] [place] [address], [place] [address] Nov, [facility] [address] [id number] [address] [place] [address], [place] [address] Nov, [facility] [address] [id number] [address] [place] [address], [place] [address] Oct, [facility] [address] [id number] [address] [place] [address], [place] [address] Sep, [facility] [address] [id number] [address] [place] [address], [place] [address] Sep, [facility] [address] [id number] [address] [place] [address], [place] [address] Aug, [facility] [address] [id number] [address] [place] [address], [place] [address] Aug, [facility] [address] [id number] [address] [place] [address], [place] [address] Jul, [facility] [address] [id number] [address] [place] [address], [place] [address] Jul, [facility] [address] [id number] [address] [place] [address], [place] [address] June, [facility] [address] [id number] [address] [place] [address], [place] [address] June, [facility] [address] [id number] [address] [place] [address], [place] [address] May, [facility] [address] [id number] [address] [place] [address], [place] [address] May, [facility] [address] [id number] [address] [place] [address] May, [facility] [address] [id number] [address] [place] [address] Apr, [facility] [address] [id number] [address] [place] [address] Apr, [facility] [address] [id number] [address] [place] [address] Mar, [facility] [address] [id number] [address] [place] [address] Feb, [facility] [address] [facility] [id number] [address] [place] [address] Feb, [facility] [address] [facility] [id number] [address] [place] [address] Dec, [facility] [address] [facility] [id number] [address] [place] [address] Nov, IMMUNIZATIONS No Known Immunizations SOCIAL HISTORY Never Assessed REASON FOR VISIT BH f/u PLAN OF CARE Activity Details Follow Up 1 Week Reason:BH F/U VITAL SIGNS MEDICATIONS Unknown Medications RESULTS No Results PROCEDURES Procedure Date Ordered Result Body Site Psychotherapy, patient &/family, 45 minutes, established patient July 07, 2017 INSTRUCTIONS MEDICATIONS ADMINISTERED No Known Medications
--- OUTSIDE RECORDS SUMMARY | 2019-09-10 15:41 | XMS REPORT ---
Author Author Aneesh BURNETT [facility] Address [address] [place] [address] Care Team Providers Care Forklift Technician Name Role Phone KENIA BURNETT Unavailable PROBLEMS Type Condition ICD9-CM Code [id number] Code Onset Dates Condition S tatus SNOMED Code Problem Anxiety disorder, unspecified F41.9 Active [id number] ALLERGIES No Information ENCOUNTERS Encounter Location Date Diagnosis [place] [address] [address] Sep, [place] [address] [address] Aug, Anxiety disorder, unspecifie d F41.9 [place] [address] [address] [place] [id number] [address] [place] [address] Jul, Anxiety disorder, unspecifie d F41.9 [place] [address] [place] [id number] [address] [place] [address] June, Anxiety disorder, unspecifie d F41.9 [place] [address] [address] [place] [id number] [address] [place] [address] May, Anxiety disorder, unspecifie d F41.9 [place] [address] [place] [id number] [address] [place] [address] May, Anxiety disorder, unspecifie d F41.9 [place] [address] [place] [id number] [address] [place] [address] Feb, Anxiety disorder, unspecifie d F41.9 [place] [address] [place] [id number] [address] [place] [address] May, Anxiety disorder, unspecifie d F41.9 [facility] [address] [id number] [address] [place] [address] Apr, Anxiety disorder, unspecifie d F41.9 [facility] [address] [id number] [address] [place] [address] Mar, Anxiety disorder, unspecifie d F41.9 [facility] [address] [facility] [id number] [address] [place] [address] Oct, Anxiety disorder, unspecifie d F41.9 [facility] [address] [id number] [address] [place] [address] Oct, Anxiety disorder, unspecifie d F41.9 [facility] [address] [facility] [id number] [address] [place] [address] Aug, Anxiety disorder, unspecifie d F41.9 [facility] [address] [facility] [id number] [address] [place] [address] Jul, Anxiety disorder, unspecifie d F41.9 [facility] [address] [id number] [address] [place] [address] Jul, Anxiety disorder, unspecifie d F41.9 [facility] [address] [facility] [id number] [address] [place] [address] June, Anxiety disorder, unspecifie d F41.9 [facility] [address] [facility] [id number] [address] [place] [address] June, Anxiety disorder, unspecifie d F41.9 [facility] [address] [id number] [address] [place] [address] May, Anxiety disorder, unspecifie d F41.9 [facility] [address] [facility] [id number] [address] [place] [address] Apr, Anxiety disorder, unspecifie d F41.9 [facility] [address] [facility] [id number] [address] [place] [address] Apr, Anxiety disorder, unspecifie d F41.9 [facility] [address] [place] [id number] [address] [place] [id number] Mar, Anxiety disorder, unspecifie d F41.9 [facility] [address] [place] [id number] [address] [place] [address] Feb, Anxiety disorder, unspecifie d F41.9 [facility] [address] [place] [id number] [address] [place] [address] Jan, Anxiety disorder, unspecifie d F41.9 [facility] [address] [place] [id number] [place] [address] Dec, Anxiety disorder, unspecifie d F41.9 [facility] [address] [place] [id number] [address] [place] [phone] Nov, Anxiety disorder, unspecifie d F41.9 [facility] [address] [place] [id number] [address] [place] [address] Oct, Anxiety disorder, unspecifie d 300.00 [facility] [address] [address] Oct, Anxiety disorder, unspecifie d 300.00 [facility] [address] [place] [id number] [address] [place] [address] Sep, Anxiety disorder, unspecifie d 300.00 [facility] [address] [place] [id number] [address] [place] [id number] Sep, Anxiety disorder, unspecifie d 300.00 [facility] [address] [place] [id number] [address] [place] [id number] Sep, Anxiety disorder, unspecifie d 300.00 [facility] [address] [place] [id number] [address] [place] [address] Sep, Anxiety disorder, unspecifie d 300.00 [facility] [address] [place] [id number] [address] [place] [address] Aug, Anxiety disorder, unspecifie d 300.00 [facility] [address] [id number] [address] [place] [address] June, Anxiety disorder, unspecifie d 300.00 [facility] [address] [id number] [address] [place] [address], [place] [address] Apr, [facility] [address] [id number] [address] [place] [phone] Apr, [facility] [address] [id number] [address] [place] [address], [place] [address] Apr, [facility] [address] [id number] [address] [place] [id number] Apr, [facility] [address] [id number] [address] [place] [address] Mar, [facility] [address] [id number] [address] [place] [phone] Mar, [facility] [address] [id number] [address] [place] [id number] Mar, [facility] [address] [id number] [address] [place] [address] Mar, [facility] [address] [id number] [address] [place] [id number] Aug, [facility] [address] [id number] [address] [place] [id number] Aug, [facility] [address] [id number] [address] [place] [id number] Apr, [facility] [address] [id number] [address] [place] [address] Apr, [facility] [address] [id number] [address] [place] [address] Mar, [facility] [address] [id number] [address] [place] [address], [place] [address] Mar, [facility] [address] [id number] [address] [place] [address], [place] [address] Feb, [facility] [address] [id number] [address] [place] [address], [place] [address] Feb, [facility] [address] [id number] [address] [place] [address], [place] [address] Feb, [facility] [address] [id number] [address] [place] [address], [place] [address] Feb, [facility] [address] [id number] [address] [place] [address], [place] [address] Oct, [facility] [address] [id number] [address] [place] [address], [place] [address] Sep, [facility] [address] [id number] [address] [place] [address], [place] [address] Aug, [facility] [address] [id number] [address] [place] [address], [place] [address] May, [facility] [address] [id number] [address] [place] [address], [place] [address] Apr, [facility] [address] [id number] [address] [place] [address], [place] [address] Mar, [facility] [address] [id number] [address] [place] [address], [place] [address] Mar, [facility] [address] [id number] [address] [place] [address], [place] [address] Feb, [facility] [address] [id number] [address] [place] [address], [place] [id number] Jan, [facility] [address] [id number] [address] [place] [address], [place] [id number] Jan, [facility] [address] [id number] [address] [place] [address], [place] [id number] Dec, [facility] [address] [id number] [address] [place] [address], [place] [id number] Dec, [facility] [address] [id number] [address] [place] [address], [place] [id number] Nov, [facility] [address] [id number] [address] [place] [address], [place] [id number] Nov, [facility] [address] [id number] [address] [place] [address], [place] [id number] Oct, [facility] [address] [id number] [address] [place] [address], [place] [id number] Sep, [facility] [address] [id number] [address] [place] [address], [place] [id number] Sep, [facility] [address] [id number] [address] [place] [address], [place] [id number] Aug, [facility] [address] [id number] [address] [place] [address], [place] [id number] Aug, [facility] [address] [id number] [address] [place] [address], [place] [id number] Jul, [facility] [address] [id number] [address] [place] [address], [place] [id number] Jul, [facility] [address] [id number] [address] [place] [address], [place] [id number] June, [facility] [address] [id number] [address] [place] [address], [place] [id number] June, [facility] [address] [id number] [address] [place] [address], [place] [id number] May, [facility] [address] [id number] [address] [place] [address], [place] [id number] May, [facility] [address] [id number] [address] [place] [address], [place] [address] May, [facility] [address] [id number] [address] [place] [id number] Apr, [facility] [address] [facility] [id number] [address] [place] [id number] Apr, [facility] [address] [facility] [id number] [address] [place] [id number] Mar, [facility] [address] [facility] [id number] [address] [place] [id number] Feb, [facility] [address] [facility] [id number] [address] [place] [id number] Feb, [facility] [address] [facility] [id number] [address] [place] [id number] Dec, [facility] [address] [facility] [id number] [address] [place] [id number] Nov, IMMUNIZATIONS No Known Immunizations SOCIAL HISTORY Never Assessed REASON FOR VISIT f/u PLAN OF CARE Activity Details Follow Up 2 Weeks Reason: F/U VITAL SIGNS MEDICATIONS Unknown Medications RESULTS No Results PROCEDURES Procedure Date Ordered Result Body Site Psychotherapy, patient &/family, 45 minutes, established pat ient May 27, 2017 INSTRUCTIONS MEDICATIONS ADMINISTERED No Known Medications
--- OUTSIDE RECORDS SUMMARY | 2019-09-10 15:41 | XMS REPORT ---
Author Author Aneesh BURNETT [facility] Address [address] [place] [address] Care Team Providers Care Scale Technician Name Role Phone KENIA BURNETT Unavailable PROBLEMS Type Condition ICD9-CM Code [id number] Code Onset Dates Condition S tatus SNOMED Code Problem Anxiety disorder, unspecified F41.9 Active 091590758 ALLERGIES No Information SOCIAL HISTORY Never Assessed PLAN OF CARE Activity Details Follow Up 2 Weeks Reason:BH F/U VITAL SIGNS MEDICATIONS Unknown Medications RESULTS No Results PROCEDURES Procedure Date Ordered Result Body Site Psychotherapy, patient &/family, 45 minutes, established pat ient April 14, 2016 IMMUNIZATIONS No Known Immunizations
--- OUTSIDE RECORDS SUMMARY | 2019-09-10 15:41 | XMS REPORT ---
Author Author Aneesh BURNETT [facility] Address [address] [place] [address] Care Team Providers Care Manager User Experience Name Role Phone KENIA BURNETT Unavailable PROBLEMS Type Condition ICD9-CM Code MYR00-PR Code Onset Dates Condition S tatus SNOMED Code Problem Anxiety disorder, unspecified F41.9 Active [id number] ALLERGIES No Information ENCOUNTERS Encounter Location Date Diagnosis [place] [address] [id number] Oct, [place] [address] [id number] Sep, Anxiety disorder, unspecifie d F41.9 [place] [address] [place] [id number] [place] [phone] Aug, Anxiety disorder, unspecifie d F41.9 [place] [address] [place] [id number] [address] [place] [id number] Jul, Anxiety disorder, unspecifie d F41.9 [place] [address] [place] [id number] [address] [place] [phone] June, Anxiety disorder, unspecifie d F41.9 [place] [id number] [place] [id number] [address] [place] [id number] May, Anxiety disorder, unspecifie d F41.9 [place] [address] [place] [id number] [address] [place] [phone] May, Anxiety disorder, unspecifie d F41.9 [place] [address] [place] [id number] [address] [place] [phone] Feb, Anxiety disorder, unspecifie d F41.9 [facility] [address] [id number] [address] [place] [phone] May, Anxiety disorder, unspecifie d F41.9 [facility] [address] [id number] [address] [place] [phone] Apr, Anxiety disorder, unspecifie d F41.9 [facility] [address] [facility] [id number] [address] [place] [phone] Mar, Anxiety disorder, unspecifie d F41.9 [facility] [address] [id number] [address] [place] [phone] Oct, Anxiety disorder, unspecifie d F41.9 [facility] [address] [facility] [id number] [address] [place] [phone] Oct, Anxiety disorder, unspecifie d F41.9 [facility] [address] [facility] [id number] [address] [place] [phone] Aug, Anxiety disorder, unspecifie d F41.9 [facility] [address] [facility] [id number] [address] [place] [phone] Jul, Anxiety disorder, unspecifie d F41.9 [facility] [address] [facility] [id number] [address] [place] [id number] Jul, Anxiety disorder, unspecifie d F41.9 [facility] [address] [facility] [id number] [address] [place] [phone] June, Anxiety disorder, unspecifie d F41.9 [facility] [address] [facility] [id number] [address] [place] [phone] June, Anxiety disorder, unspecifie d F41.9 [facility] [address] [facility] [id number] [address] [place] [phone] May, Anxiety disorder, unspecifie d F41.9 [facility] [address] [facility] [id number] [address] [place] [id number] Apr, Anxiety disorder, unspecifie d F41.9 [facility] [address] [facility] [id number] [address] [place] [phone] Apr, Anxiety disorder, unspecifie d F41.9 [facility] [address] [facility] [id number] [address] [place] [phone] Mar, Anxiety disorder, unspecifie d F41.9 [facility] [address] [place] [id number] [address] [place] [phone] Feb, Anxiety disorder, unspecifie d F41.9 [facility] [address] [place] [id number] [address] [place] [phone] Jan, Anxiety disorder, unspecifie d F41.9 [facility] [address] [place] [id number] [address] [place] [phone] Dec, Anxiety disorder, unspecifie d F41.9 [facility] [address] [place] [id number] [address] [place] [phone] Nov, Anxiety disorder, unspecifie d F41.9 [facility] [address] [place] [id number] [address] [place] [id number] Oct, Anxiety disorder, unspecifie d 300.00 [facility] [address] [place] [id number] [address] [place] [id number] Oct, Anxiety disorder, unspecifie d 300.00 [facility] [address] [place] [id number] [address] [place] [phone] Sep, Anxiety disorder, unspecifie d 300.00 [facility] [address] [place] [id number] [address] [place] [phone] Sep, Anxiety disorder, unspecifie d 300.00 [facility] [address] [facility] [id number] [address] [place] [phone] Sep, Anxiety disorder, unspecifie d 300.00 [facility] [address] [place] [id number] [address] [place] [phone] Sep, Anxiety disorder, unspecifie d 300.00 [facility] [address] [id number] [address] [place] [id number] Aug, Anxiety disorder, unspecifie d 300.00 [facility] [address] [id number] [address] [place] [id number] June, Anxiety disorder, unspecifie d 300.00 [facility] [address] [id number] [address] [place] [phone] Apr, [facility] [address] [id number] [address] [place] [phone] Apr, [facility] [address] [id number] [address] [place] [phone] Apr, [facility] [address] [id number] [address] [place] [phone] Apr, [facility] [address] [id number] [address] [place] [phone] Mar, [facility] [address] [id number] [address] [place] [phone] Mar, [facility] [address] [id number] [address] [place] [phone] Mar, [facility] [address] [id number] [address] [place] [phone] Mar, [facility] [address] [id number] [address] [place] [phone] Aug, [facility] [address] [id number] [address] [place] [id number] Aug, [facility] [address] [id number] [address] [place] [phone] Apr, [facility] [address] [id number] [address] [place] [phone] Apr, [facility] [address] [id number] [address] [place] [address], [place] [id number] Mar, [facility] [address] [id number] [address] [place] [address], [place] [id number] Mar, [facility] [address] [id number] [address] [place] [address], [place] [phone] Feb, [facility] [address] [id number] [address] [place] [address], [place] [phone] Feb, [facility] [address] [id number] [address] [place] [address], [place] [phone] Feb, [facility] [address] [id number] [address] [place] [address], [place] [phone] Feb, [facility] [address] [id number] [address] [place] [address], [place] [id number] Oct, [facility] [address] [id number] [address] [place] [address], [place] [phone] Sep, [facility] [address] [id number] [address] [place] [address], [place] [phone] Aug, [facility] [address] [id number] [address] [place] [address], [place] [phone] May, [facility] [address] [id number] [address] [place] [address], [place] [phone] Apr, [facility] [address] [id number] [address] [place] [phone] Mar, [facility] [address] [id number] [address] [place] [address], [place] [phone] Mar, [facility] [address] [id number] [address] [place] [address], [place] [address] Feb, [facility] [address] [id number] [address] [place] [address], [place] [id number] Jan, [facility] [address] [id number] [address] [place] [address], [place] [phone] Jan, [facility] [address] [id number] [address] [place] [address], [place] [id number] Dec, [facility] [address] [id number] [address] [place] [address], [place] [phone] Dec, [facility] [address] [id number] [address] [place] [address], [place] [id number] Nov, [facility] [address] [id number] [address] [place] [address], [place] [id number] Nov, [facility] [address] [id number] [address] [place] [address], [place] [phone] Oct, [facility] [address] [id number] [address] [place] [address], [place] [id number] Sep, [facility] [address] [id number] [address] [place] [address], [place] [id number] Sep, [facility] [address] [id number] [address] [place] [address], [place] [phone] Aug, [facility] [address] [id number] [address] [place] [address], [place] [id number] Aug, [facility] [address] [id number] [address] [place] [address], [place] [id number] Jul, [facility] [address] [id number] [address] [place] [address], [place] [address] Jul, [facility] [address] [id number] [address] [place] [address], [place] [address] June, [facility] [address] [id number] [address] [place] [address], [place] [address] June, [facility] [address] [id number] [address] [place] [address], [place] [address] May, [facility] [address] [id number] [address] [place] [address], [place] [address] May, [facility] [address] [id number] [address] [place] [phone] May, [facility] [address] [id number] [address] [place] [phone] Apr, [facility] [address] [id number] [address] [place] [phone] Apr, [facility] [address] [facility] [id number] [address] [place] [id number] Mar, [facility] [address] [id number] [address] [place] [phone] Feb, [facility] [address] [facility] [id number] [address] [place] [phone] Feb, [facility] [address] [facility] [id number] [address] [place] [phone] Dec, [facility] [address] [facility] [id number] [address] [place] [phone] Nov, IMMUNIZATIONS No Known Immunizations SOCIAL HISTORY Never Assessed REASON FOR VISIT BH f/u PLAN OF CARE Activity Details Follow Up Next available Reason: F/U VITAL SIGNS MEDICATIONS Unknown Medications RESULTS No Results PROCEDURES Procedure Date Ordered Result Body Site Psychotherapy, patient &/family, 45 minutes, established pat ient August 17, 2017 INSTRUCTIONS MEDICATIONS ADMINISTERED No Known Medications
--- OUTSIDE RECORDS SUMMARY | 2019-09-10 15:41 | XMS REPORT ---
Author Author Aneesh BURNETT [facility] Address [address] [place] [address] Care Team Providers Care Insurance Adjuster Name Role Phone KENIA BURNETT Unavailable PROBLEMS Type Condition ICD9-CM Code [id number] Code Onset Dates Condition S tatus SNOMED Code Problem Anxiety disorder, unspecified F41.9 Active [id number] ALLERGIES No Information ENCOUNTERS Encounter Location Date Diagnosis [place] [address] [id number] Oct, [place] [address] [address] Sep, Anxiety disorder, unspecifie d F41.9 [place] [address] [place] [id number] [address] [place] [phone] Aug, Anxiety disorder, unspecifie d F41.9 [place] [address] [place] [id number] [address] [place] [address] Jul, Anxiety disorder, unspecifie d F41.9 [place] [address] [place] [id number] [address] [place] [address] June, Anxiety disorder, unspecifie d F41.9 [place] [id number] [place] [id number] [address] [place] [address] May, Anxiety disorder, unspecifie d F41.9 [place] [address] [place] [id number] [address] [place] [address] May, Anxiety disorder, unspecifie d F41.9 [place] [address] [place] [id number] [address] [place] [phone] Feb, Anxiety disorder, unspecifie d F41.9 [facility] [place] [address] [id number] [address] [place] [address] May, Anxiety disorder, unspecifie d F41.9 [facility] [place] [address] [id number] [address] [place] [address] Apr, Anxiety disorder, unspecifie d F41.9 [facility] [place] [address] [facility] [id number] [address] [place] [phone] Mar, Anxiety disorder, unspecifie d F41.9 [facility] [place] [address] [id number] [address] [place] [phone] Oct, Anxiety disorder, unspecifie d F41.9 [facility] [place] [address] [facility] [id number] [address] [place] [phone] Oct, Anxiety disorder, unspecifie d F41.9 [facility] [place] [address] [facility] [id number] [address] [place] [phone] Aug, Anxiety disorder, unspecifie d F41.9 [facility] [place] [address] [facility] [id number] [address] [place] [phone] Jul, Anxiety disorder, unspecifie d F41.9 [facility] [place] [address] [facility] [id number] [address] [place] [phone] Jul, Anxiety disorder, unspecifie d F41.9 [facility] [place] [address] [facility] [id number] [address] [place] [phone] June, Anxiety disorder, unspecifie d F41.9 [facility] [place] [address] [facility] [id number] [address] [place] [phone] June, Anxiety disorder, unspecifie d F41.9 [facility] [place] [address] [facility] [id number] [address] [place] [phone] May, Anxiety disorder, unspecifie d F41.9 [facility] [place] [address] [facility] [id number] [address] [place] [phone] Apr, Anxiety disorder, unspecifie d F41.9 [facility] [place] [address] [facility] [id number] [address] [place] [phone] Apr, Anxiety disorder, unspecifie d F41.9 [facility] [place] [address] [facility] [id number] [address] [place] [phone] Mar, Anxiety disorder, unspecifie d F41.9 [facility] [place] [address] [place] [id number] [address] [place] [phone] Feb, Anxiety disorder, unspecifie d F41.9 [facility] [place] [address] [place] [id number] [address] [place] [phone] Jan, Anxiety disorder, unspecifie d F41.9 [facility] [place] [address] [place] [id number] [address] [place] [phone] Dec, Anxiety disorder, unspecifie d F41.9 [facility] [place] [address] [place] [id number] [address] [place] [phone] Nov, Anxiety disorder, unspecifie d F41.9 [facility] [place] [address] [place] [id number] [address] [place] [phone] Oct, Anxiety disorder, unspecifie d 300.00 [facility] [place] [address] [place] [id number] [address] [place] [phone] Oct, Anxiety disorder, unspecifie d 300.00 [facility] [place] [address] [place] [id number] [address] [place] [phone] Sep, Anxiety disorder, unspecifie d 300.00 [facility] [place] [address] [place] [id number] [address] [place] [phone] Sep, Anxiety disorder, unspecifie d 300.00 [facility] [place] [address] [facility] [id number] [address] [place] [address] Sep, Anxiety disorder, unspecifie d 300.00 [facility] [place] [address] [place] [id number] [address] [place] [phone] Sep, Anxiety disorder, unspecifie d 300.00 [facility] [place] [address] [id number] [address] [place] [phone] Aug, Anxiety disorder, unspecifie d 300.00 [facility] [place] [address] [id number] [address] [place] [phone] June, Anxiety disorder, unspecifie d 300.00 [facility] [place] [address] [id number] [address] [place] [phone] Apr, [facility] [place] [address] [id number] [address] [place] [phone] Apr, [facility] [place] [address] [id number] [address] [place] [phone] Apr, [facility] [place] [address] [id number] [address] [place] [phone] Apr, [facility] [place] [address] [id number] [address] [place] [phone] Mar, [facility] [place] [address] [id number] [address] [place] [phone] Mar, [facility] [place] [address] [id number] [address] [place] [phone] Mar, [facility] [place] [address] [id number] [address] [place] [phone] Mar, [facility] [place] [address] [id number] [address] [place] [phone] Aug, [facility] [address] [id number] [address] [place] [phone] Aug, [facility] [address] [id number] [address] [place] [phone] Apr, [facility] [place] [address] [id number] [address] [place] [phone] Apr, [facility] [address] [id number] [address] [place] [address], [place] [address] Mar, [facility] [address] [id number] [address] [place] [address], [place] [address] Mar, [facility] [address] [id number] [address] [place] [address], [place] [address] Feb, [facility] [address] [id number] [address] [place] [address], [place] [address] Feb, [facility] [address] [id number] [address] [place] [address], [place] [address] Feb, [facility] [address] [id number] [address] [place] [address], [place] [address] Feb, [facility] [address] [id number] [address] [place] [address], [place] [address] Oct, [facility] [address] [id number] [address] [place] [address], [place] [address] Sep, [facility] [address] [id number] [address] [place] [address], [place] [address] Aug, [facility] [address] [id number] [address] [place] [address], [place] [address] May, [facility] [address] [id number] [address] [place] [address], [place] [address] Apr, [facility] [address] [id number] [address] [place] [phone] Mar, [facility] [address] [id number] [address] [place] [address], [place] [address] Mar, [facility] [address] [id number] [address] [place] [address], [place] [address] Feb, [facility] [address] [id number] [address] [place] [address], [place] [address] Jan, [facility] [address] [id number] [address] [place] [address], [place] [address] Jan, [facility] [address] [id number] [address] [place] [address], [place] [address] Dec, [facility] [address] [id number] [address] [place] [address], [place] [address] Dec, [facility] [address] [id number] [address] [place] [address], [place] [address] Nov, [facility] [address] [id number] [address] [place] [address], [place] [address] Nov, [facility] [address] [id number] [address] [place] [address], [place] [address] Oct, [facility] [address] [id number] [address] [place] [address], [place] [address] Sep, [facility] [address] [id number] [address] [place] [address], [place] [address] Sep, [facility] [address] [id number] [address] [place] [address], [place] [address] Aug, [facility] [address] [id number] [address] [place] [address], [place] [address] Aug, [facility] [address] [id number] [address] [place] [address], [place] [address] Jul, [facility] [address] [id number] [address] [place] [address], [place] [address] Jul, [facility] [address] [id number] [address] [place] [address], [place] [address] June, [facility] [address] [id number] [address] [place] [address], [place] [address] June, [facility] [address] [id number] [address] [place] [address], [place] [address] May, [facility] [address] [id number] [address] [place] [address], [place] [address] May, [facility] [place] [address] [id number] [address] [place] [phone] May, [facility] [place] [address] [id number] [address] [place] [address] Apr, [facility] [place] [address] [id number] [address] [place] [address] Apr, [facility] [place] [address] [facility] [id number] [address] [place] [phone] Mar, [facility] [place] [address] [id number] [address] [place] [address] Feb, [facility] [place] [address] [facility] [id number] [address] [place] [address] Feb, [facility] [place] [address] [facility] [id number] [address] [place] [phone] Dec, [facility] [place] [address] [facility] [id number] [address] [place] [address] Nov, IMMUNIZATIONS No Known Immunizations SOCIAL HISTORY Never Assessed REASON FOR VISIT BH f/u PLAN OF CARE Activity Details Follow Up Next available Reason: F/U VITAL SIGNS MEDICATIONS Unknown Medications RESULTS No Results PROCEDURES Procedure Date Ordered Result Body Site Psychotherapy, patient &/family, 45 minutes, established pat ient July 14, 2017 INSTRUCTIONS MEDICATIONS ADMINISTERED No Known Medications
--- OUTSIDE RECORDS SUMMARY | 2019-09-10 15:41 | XMS REPORT ---
Author Author Aneesh BURNETT [facility] Address [address] [place] [address] Care Team Providers Care Bakery Deliverer Name Role Phone KENIA BURNETT Unavailable PROBLEMS Type Condition ICD9-CM Code [id number] Code Onset Dates Condition S tatus SNOMED Code Problem Anxiety disorder, unspecified F41.9 Active [id number] ALLERGIES No Information ENCOUNTERS Encounter Location Date Diagnosis [place] [address] [address] Aug, [place] [address] [address] Jul, [place] [address] [address] Jul, Anxiety disorder, unspecifie d F41.9 [place] [address] [address] June, Anxiety disorder, unspecifie d F41.9 [place] [address] [place] [id number] [place] [address] May, Anxiety disorder, unspecifie d F41.9 [place] [id number] [place] [id number] [address] [place] [address] May, Anxiety disorder, unspecifie d F41.9 [place] [address] [address] Feb, Anxiety disorder, unspecifie d F41.9 [place] [address] [place] [id number] [address] [place] [address] May, Anxiety disorder, unspecifie d F41.9 [place] [address] [place] [id number] [address] [place] [address] Apr, Anxiety disorder, unspecifie d F41.9 [facility] [address] [facility] [id number] [address] [place] [address] Mar, Anxiety disorder, unspecifie d F41.9 [facility] [address] [facility] [id number] [address] [place] [address] Oct, Anxiety disorder, unspecifie d F41.9 [facility] [address] [facility] [id number] [address] [place] [address] Oct, Anxiety disorder, unspecifie d F41.9 [facility] [address] [facility] [id number] [address] [place] [address] Aug, Anxiety disorder, unspecifie d F41.9 [facility] [address] [facility] [id number] [address] [place] [address] Jul, Anxiety disorder, unspecifie d F41.9 [facility] [address] [facility] [id number] [address] [place] [address] Jul, Anxiety disorder, unspecifie d F41.9 [facility] [address] [facility] [id number] [address] [place] [address] June, Anxiety disorder, unspecifie d F41.9 [facility] [address] [facility] [id number] [address] [place] [address] June, Anxiety disorder, unspecifie d F41.9 [facility] [address] [facility] [id number] [address] [place] [address] May, Anxiety disorder, unspecifie d F41.9 [facility] [address] [facility] [id number] [address] [place] [phone] Apr, Anxiety disorder, unspecifie d F41.9 [facility] [address] [facility] [id number] [address] [place] [address] Apr, Anxiety disorder, unspecifie d F41.9 [facility] [address] [facility] [id number] [address] [place] [address] Mar, Anxiety disorder, unspecifie d F41.9 [facility] [address] [facility] [id number] [address] [place] [address] Feb, Anxiety disorder, unspecifie d F41.9 [facility] [address] [place] [id number] [address] [place] [address] Jan, Anxiety disorder, unspecifie d F41.9 [facility] [address] [facility] [id number] [address] [place] [address] Dec, Anxiety disorder, unspecifie d F41.9 [facility] [address] [place] [id number] [address] [place] [address] Nov, Anxiety disorder, unspecifie d F41.9 [facility] [address] [place] [id number] [address] [place] [address] Oct, Anxiety disorder, unspecifie d 300.00 [facility] [address] [facility] [id number] [address] [place] [address] Oct, Anxiety disorder, unspecifie d 300.00 [facility] [address] [facility] [id number] [address] [place] [address] Sep, Anxiety disorder, unspecifie d 300.00 [facility] [address] [facility] [id number] [address] [place] [address] Sep, Anxiety disorder, unspecifie d 300.00 [facility] [address] [facility] [id number] [address] [place] [address] Sep, Anxiety disorder, unspecifie d 300.00 [facility] [address] [place] [id number] [address] [place] [address] Sep, Anxiety disorder, unspecifie d 300.00 [facility] [address] [place] [id number] [address] [place] [address] Aug, Anxiety disorder, unspecifie d 300.00 [facility] [address] [id number] [address] [place] [address] June, Anxiety disorder, unspecifie d 300.00 [facility] [address] [id number] [address] [place] [address], [place] [address] Apr, [facility] [address] [id number] [address] [place] [address] Apr, [facility] [address] [id number] [address] [place] [address], [place] [address] Apr, [facility] [address] [id number] [address] [place] [address], [place] [address] Apr, [facility] [address] [id number] [address] [place] [phone] Mar, [facility] [address] [id number] [address] [place] [address] Mar, [facility] [address] [id number] [address] [place] [address], [place] [address] Mar, [facility] [address] [id number] [address] [place] [phone] Mar, [facility] [address] [id number] [address] [place] [address] Aug, [facility] [address] [id number] [address] [place] [address] Aug, [facility] [address] [id number] [address] [place] [phone] Apr, [facility] [address] [id number] [address] [place] [address] Apr, [facility] [address] [id number] [address] [place] [phone] Mar, [facility] [address] [id number] [address] [place] [address] Mar, [facility] [address] [id number] [address] [place] [address], [place] [address] Feb, [facility] [address] [id number] [address] [place] [address], [place] [address] Feb, [facility] [address] [id number] [address] [place] [address], [place] [address] Feb, [facility] [address] [id number] [address] [place] [address], [place] [address] Feb, [facility] [address] [id number] [address] [place] [address], [place] [address] Oct, [facility] [address] [id number] [address] [place] [address], [place] [address] Sep, [facility] [address] [id number] [address] [place] [address], [place] [address] Aug, [facility] [address] [id number] [address] [place] [address], [place] [address] May, [facility] [address] [id number] [address] [place] [address], [place] [address] Apr, [facility] [address] [id number] [address] [place] [address], [place] [address] Mar, [facility] [address] [id number] [address] [place] [address], [place] [address] Mar, [facility] [address] [id number] [address] [place] [address], [place] [address] Feb, [facility] [address] [id number] [address] [place] [address], [place] [address] Jan, [facility] [address] [id number] [address] [place] [address], [place] [address] Jan, [facility] [address] [id number] [address] [place] [address], [place] [address] Dec, [facility] [address] [id number] [address] [place] [address], [place] [address] Dec, [facility] [address] [id number] [address] [place] [address], [place] [address] Nov, [facility] [address] [id number] [address] [place] [address], [place] [address] Nov, [facility] [address] [id number] [address] [place] [address], [place] [address] Oct, [facility] [address] [id number] [address] [place] [address], [place] [address] Sep, [facility] [address] [id number] [address] [place] [address], [place] [address] Sep, [facility] [address] [id number] [address] [place] [address], [place] [address] Aug, [facility] [address] [id number] [address] [place] [address], [place] [address] Aug, [facility] [address] [id number] [address] [place] [address], [place] [address] Jul, [facility] [address] [id number] [address] [place] [address], [place] [address] Jul, [facility] [address] [id number] [address] [place] [address], [place] [address] June, [facility] [address] [id number] [address] [place] [address], [place] [address] June, [facility] [address] [id number] [address] [place] [address], [place] [address] May, [facility] [address] [id number] [address] [place] [address], [place] [address] May, [facility] [address] [id number] [address] [place] [address], [place] [address] May, [facility] [address] [id number] [address] [place] [address] [address] Apr, [facility] [address] [facility] [id number] [address] [place] [address] Apr, [facility] [address] [facility] [id number] [address] [place] [address] Mar, [facility] [address] [facility] [id number] [address] [place] [address] Feb, [facility] [address] [facility] [id number] [address] [place] [address] Feb, [facility] [address] [facility] [id number] [address] [place] [address] Dec, [facility] [address] [facility] [id number] [address] [place] [address] Nov, IMMUNIZATIONS No Known Immunizations SOCIAL HISTORY Never Assessed REASON FOR VISIT f/u PLAN OF CARE Activity Details Follow Up 2 Weeks Reason: F/U VITAL SIGNS MEDICATIONS Unknown Medications RESULTS No Results PROCEDURES Procedure Date Ordered Result Body Site Psychotherapy, patient &/family, 45 minutes, established patient Feb 18, 2017 INSTRUCTIONS MEDICATIONS ADMINISTERED No Known Medications
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
--- OUTSIDE RECORDS SUMMARY | 2019-09-10 15:41 | XMS REPORT ---
Author Author Aneesh BURNETT [facility] Address [address] [place] [address] Care Team Providers Care Printing Machinist Name Role Phone KENIA BURNETT Unavailable PROBLEMS Type Condition ICD9-CM Code [id number] Code Onset Dates Condition S tatus SNOMED Code Problem Anxiety disorder, unspecified F41.9 Active [id number] ALLERGIES No Information SOCIAL HISTORY Never Assessed PLAN OF CARE Activity Details Follow Up 2 Weeks Reason:BH F/U VITAL SIGNS MEDICATIONS Unknown Medications RESULTS No Results PROCEDURES Procedure Date Ordered Result Body Site Psychotherapy, patient &/family, 30 minutes, established patient Mar 30, 2016 IMMUNIZATIONS No Known Immunizations
--- OUTSIDE RECORDS SUMMARY | 2019-09-10 15:41 | XMS REPORT ---
Author Author Aneesh BURNETT [facility] Address [address] [place] [address] Care Team Providers Care Senior Director Finance Name Role Phone KENIA BURNETT Unavailable PROBLEMS Type Condition ICD9-CM Code IUB79-OH Code Onset Dates Condition S tatus SNOMED Code Problem Anxiety disorder, unspecified F41.9 Active [id number] ALLERGIES No Information ENCOUNTERS Encounter Location Date Diagnosis [place] [address] [address] Nov, [place] [address] [address] Oct, Anxiety disorder, unspecifie d F41.9 [place] [id number] [place] [id number] [place] [address] Sep, Anxiety disorder, unspecifie d F41.9 [place] [address] [place] [id number] [place] [address] Aug, Anxiety disorder, unspecifie d F41.9 [place] [address] [place] [id number] [address] [place] [address] Jul, Anxiety disorder, unspecifie d F41.9 [place] [address] [place] [id number] [address] [place] [address] June, Anxiety disorder, unspecifie d F41.9 [place] [address] [place] [id number] [address] [place] [address] May, Anxiety disorder, unspecifie d F41.9 [place] [address] [place] [id number] [address] [place] [address] May, Anxiety disorder, unspecifie d F41.9 [facility] [address] [id number] [address] [place] [address] Feb, Anxiety disorder, unspecifie d F41.9 [facility] [address] [facility] [id number] [address] [place] [address] May, Anxiety disorder, unspecifie d F41.9 [facility] [address] [facility] [id number] [address] [place] [address] Apr, Anxiety disorder, unspecifie d F41.9 [facility] [address] [id number] [address] [place] [address] Mar, Anxiety disorder, unspecifie d F41.9 [facility] [address] [facility] [id number] [address] [place] [address] Oct, Anxiety disorder, unspecifie d F41.9 [facility] [address] [facility] [id number] [address] [place] [address] Oct, Anxiety disorder, unspecifie d F41.9 [facility] [address] [facility] [id number] [address] [place] [address] Aug, Anxiety disorder, unspecifie d F41.9 [facility] [address] [facility] [id number] [address] [place] [address] Jul, Anxiety disorder, unspecifie d F41.9 [facility] [address] [facility] [id number] [address] [place] [address] Jul, Anxiety disorder, unspecifie d F41.9 [facility] [address] [facility] [id number] [address] [place] [address] June, Anxiety disorder, unspecifie d F41.9 [facility] [address] [facility] [id number] [address] [place] [address] June, Anxiety disorder, unspecifie d F41.9 [facility] [address] [facility] [id number] [address] [place] [address] May, Anxiety disorder, unspecifie d F41.9 [facility] [address] [facility] [id number] [address] [place] [address] Apr, Anxiety disorder, unspecifie d F41.9 [facility] [address] [facility] [id number] [address] [place] [address] Apr, Anxiety disorder, unspecifie d F41.9 [facility] [address] [facility] [id number] [address] [place] [address] Mar, Anxiety disorder, unspecifie d F41.9 [facility] [address] [facility] [id number] [address] [place] [address] Feb, Anxiety disorder, unspecifie d F41.9 [facility] [address] [place] [id number] [address] [place] [address] Jan, Anxiety disorder, unspecifie d F41.9 [facility] [address] [place] [id number] [address] [place] [address] Dec, Anxiety disorder, unspecifie d F41.9 [facility] [address] [place] [id number] [address] [place] [address] Nov, Anxiety disorder, unspecifie d F41.9 [facility] [address] [place] [id number] [address] [place] [address] Oct, Anxiety disorder, unspecifie d 300.00 [facility] [address] [place] [id number] [address] [place] [address] Oct, Anxiety disorder, unspecifie d 300.00 [facility] [address] [facility] [id number] [address] [place] [address] Sep, Anxiety disorder, unspecifie d 300.00 [facility] [address] [facility] [id number] [address] [place] [address] Sep, Anxiety disorder, unspecifie d 300.00 [facility] [address] [place] [id number] [address] [place] [address] Sep, Anxiety disorder, unspecifie d 300.00 [facility] [address] [facility] [id number] [address] [place] [address] Sep, Anxiety disorder, unspecifie d 300.00 [facility] [address] [facility] [id number] [address] [place] [address] Aug, Anxiety disorder, unspecifie d 300.00 [facility] [address] [id number] [address] [place] [address] June, Anxiety disorder, unspecifie d 300.00 [facility] [address] [id number] [address] [place] [address] Apr, [facility] [address] [facility] [id number] [address] [place] [address] Apr, [facility] [address] [id number] [address] [place] [address] Apr, [facility] [address] [facility] [id number] [address] [place] [address] Apr, [facility] [address] [facility] [id number] [address] [place] [address] Mar, [facility] [address] [facility] [id number] [address] [place] [address] Mar, [facility] [address] [id number] [address] [place] [address] Mar, [facility] [address] [facility] [id number] [address] [place] [address] Mar, [facility] [address] [id number] [address] [place] [address] Aug, [facility] [address] [facility] [id number] [address] [place] [address] Aug, [facility] [address] [id number] [address] [place] [address] Apr, [facility] [address] [id number] [address] [place] [address], [place] [address] Apr, [facility] [address] [id number] [address] [place] [address], [place] [address] Mar, [facility] [address] [id number] [address] [place] [address], [place] [address] Mar, [facility] [address] [id number] [address] [place] [address], [place] [address] Feb, [facility] [address] [id number] [address] [place] [address], [place] [address] Feb, [facility] [address] [id number] [address] [place] [address], [place] [address] Feb, [facility] [address] [id number] [address] [place] [address], [place] [address] Feb, [facility] [address] [id number] [address] [place] [address], [place] [address] Oct, [facility] [address] [id number] [address] [place] [address], [place] [address] Sep, [facility] [address] [id number] [address] [place] [address], [place] [address] Aug, [facility] [address] [id number] [address] [place] [address], [place] [address] May, [facility] [address] [id number] [address] [place] [address], [place] [address] Apr, [facility] [address] [id number] [address] [place] [address], [place] [address] Mar, [facility] [address] [id number] [address] [place] [address], [place] [address] Mar, [facility] [address] [id number] [address] [place] [address], [place] [address] Feb, [facility] [address] [id number] [address] [place] [address], [place] [address] Jan, [facility] [address] [id number] [address] [place] [address], [place] [address] Jan, [facility] [address] [id number] [address] [place] [address], [place] [address] Dec, [facility] [address] [id number] [address] [place] [address], [place] [address] Dec, [facility] [address] [id number] [address] [place] [address], [place] [address] Nov, [facility] [address] [id number] [address] [place] [address], [place] [address] Nov, [facility] [address] [id number] [address] [place] [address], [place] [address] Oct, [facility] [address] [id number] [address] [place] [address], [place] [address] Sep, [facility] [address] [id number] [address] [place] [address], [place] [address] Sep, [facility] [address] [id number] [address] [place] [address], [place] [address] Aug, [facility] [address] [id number] [address] [place] [address], [place] [address] Aug, [facility] [address] [id number] [address] [place] [address], [place] [address] Jul, [facility] [address] [id number] [address] [place] [address], [place] [address] Jul, [facility] [address] [id number] [address] [place] [address], [place] [address] June, [facility] [address] [id number] [address] [place] [address], [place] [address] June, [facility] [address] [id number] [address] [place] [address], [place] [address] May, [facility] [address] [id number] [address] [place] [address] May, [facility] [address] [id number] [address] [place] [address] May, [facility] [address] [id number] [address] [place] [address] Apr, [facility] [address] [id number] [address] [place] [address] Apr, [facility] [address] [id number] [address] [place] [address] Mar, [facility] [address] [id number] [address] [place] [address] Feb, [facility] [address] [id number] [address] [place] [address] Feb, [facility] [address] [id number] [address] [place] [address] Dec, [facility] [address] [id number] [address] [place] [address] Nov, IMMUNIZATIONS No Known Immunizations SOCIAL HISTORY Never Assessed REASON FOR VISIT f/u PLAN OF CARE Activity Details Follow Up Next available Reason: F/U VITAL SIGNS MEDICATIONS Unknown Medications RESULTS No Results PROCEDURES Procedure Date Ordered Result Body Site Psychotherapy, patient &/family, 45 minutes, established patient Sep 09, 2017 INSTRUCTIONS MEDICATIONS ADMINISTERED No Known Medications
--- OUTSIDE RECORDS SUMMARY | 2019-09-10 15:41 | XMS REPORT ---
Author Author Aneesh BURNETT [facility] Address [address] [place] [address] Care Team Providers Care Shop Superintendent Name Role Phone KENIA BURNETT Unavailable PROBLEMS Type Condition ICD9-CM Code [id number] Code Onset Dates Condition S tatus SNOMED Code Problem Anxiety disorder, unspecified F41.9 Active [id number] ALLERGIES No Information ENCOUNTERS Encounter Location Date Diagnosis [place] [address] [id number] Sep, [place] [address] [phone] Aug, Anxiety disorder, unspecifie d F41.9 [id number] [id number] [address] [place] [phone] Jul, Anxiety disorder, unspecifie d F41.9 [place] [address] [place] [id number] [address] [place] [phone] June, Anxiety disorder, unspecifie d F41.9 [place] [address] [place] [id number] [address] [place] [phone] May, Anxiety disorder, unspecifie d F41.9 [place] [id number] [place] [id number] [address] [place] [phone] May, Anxiety disorder, unspecifie d F41.9 [place] [address] [place] [id number] [address] [place] [phone] Feb, Anxiety disorder, unspecifie d F41.9 [place] [address] [place] [id number] [address] [place] [phone] May, Anxiety disorder, unspecifie d F41.9 [facility] [address] [id number] [address] [place] [phone] Apr, Anxiety disorder, unspecifie d F41.9 [facility] [address] [id number] [address] [place] [phone] Mar, Anxiety disorder, unspecifie d F41.9 [facility] [address] [facility] [id number] [address] [place] [phone] Oct, Anxiety disorder, unspecifie d F41.9 [facility] [address] [id number] [address] [place] [phone] Oct, Anxiety disorder, unspecifie d F41.9 [facility] [address] [facility] [id number] [address] [place] [phone] Aug, Anxiety disorder, unspecifie d F41.9 [facility] [address] [facility] [id number] [address] [place] [phone] Jul, Anxiety disorder, unspecifie d F41.9 [facility] [address] [id number] [address] [place] [phone] Jul, Anxiety disorder, unspecifie d F41.9 [facility] [address] [facility] [id number] [address] [place] [phone] June, Anxiety disorder, unspecifie d F41.9 [facility] [address] [facility] [id number] [address] [place] [phone] June, Anxiety disorder, unspecifie d F41.9 [facility] [address] [id number] [address] [place] [phone] May, Anxiety disorder, unspecifie d F41.9 [facility] [address] [facility] [id number] [address] [place] [phone] Apr, Anxiety disorder, unspecifie d F41.9 [facility] [address] [facility] [id number] [address] [place] [phone] Apr, Anxiety disorder, unspecifie d F41.9 [facility] [address] [place] [id number] [address] [place] [phone] Mar, Anxiety disorder, unspecifie d F41.9 [facility] [address] [place] [id number] [address] [place] [phone] Feb, Anxiety disorder, unspecifie d F41.9 [facility] [address] [place] [id number] [address] [place] [phone] Jan, Anxiety disorder, unspecifie d F41.9 [facility] [address] [place] [id number] [place] [phone] Dec, Anxiety disorder, unspecifie d F41.9 [facility] [address] [place] [id number] [address] [place] [phone] Nov, Anxiety disorder, unspecifie d F41.9 [facility] [address] [place] [id number] [address] [place] [phone] Oct, Anxiety disorder, unspecifie d 300.00 [facility] [address] [phone] Oct, Anxiety disorder, unspecifie d 300.00 [facility] [address] [place] [id number] [address] [place] [phone] Sep, Anxiety disorder, unspecifie d 300.00 [facility] [address] [place] [id number] [address] [place] [phone] Sep, Anxiety disorder, unspecifie d 300.00 [facility] [address] [place] [id number] [address] [place] [phone] Sep, Anxiety disorder, unspecifie d 300.00 [facility] [address] [place] [id number] [address] [place] [phone] Sep, Anxiety disorder, unspecifie d 300.00 [facility] [address] [place] [id number] [address] [place] [phone] Aug, Anxiety disorder, unspecifie d 300.00 [facility] [address] [id number] [address] [place] [phone] June, Anxiety disorder, unspecifie d 300.00 [facility] [address] [id number] [address] [place] [address], [place] [id number] Apr, [facility] [address] [id number] [address] [place] [phone] Apr, [facility] [address] [id number] [address] [place] [address], [place] [id number] Apr, [facility] [address] [id number] [address] [place] [phone] Apr, [facility] [address] [id number] [address] [place] [phone] Mar, [facility] [address] [id number] [address] [place] [phone] Mar, [facility] [address] [id number] [address] [place] [phone] Mar, [facility] [address] [id number] [address] [place] [phone] Mar, [facility] [address] [id number] [address] [place] [phone] Aug, [facility] [address] [id number] [address] [place] [phone] Aug, [facility] [address] [id number] [address] [place] [phone] Apr, [facility] [address] [id number] [address] [place] [phone] Apr, [facility] [address] [id number] [address] [place] [phone] Mar, [facility] [address] [id number] [address] [place] [address], [place] [id number] Mar, [facility] [address] [id number] [address] [place] [address], [place] [id number] Feb, [facility] [address] [id number] [address] [place] [address], [place] [id number] Feb, [facility] [address] [id number] [address] [place] [address], [place] [id number] Feb, [facility] [address] [id number] [address] [place] [address], [place] [id number] Feb, [facility] [address] [id number] [address] [place] [address], [place] [id number] Oct, [facility] [address] [id number] [address] [place] [address], [place] [id number] Sep, [facility] [address] [id number] [address] [place] [address], [place] [id number] Aug, [facility] [address] [id number] [address] [place] [address], [place] [id number] May, [facility] [address] [id number] [address] [place] [address], [place] [id number] Apr, [facility] [address] [id number] [address] [place] [address], [place] [id number] Mar, [facility] [address] [id number] [address] [place] [address], [place] [id number] Mar, [facility] [address] [id number] [address] [place] [address], [place] [id number] Feb, [facility] [address] [id number] [address] [place] [address], [place] [id number] Jan, [facility] [address] [id number] [address] [place] [address], [place] [id number] Jan, [facility] [address] [id number] [address] [place] [address], [place] [id number] Dec, [facility] [address] [id number] [address] [place] [address], [place] [id number] Dec, [facility] [address] [id number] [address] [place] [address], [place] [id number] Nov, [facility] [address] [id number] [address] [place] [address], [place] [id number] Nov, [facility] [address] [id number] [address] [place] [address], [place] [id number] Oct, [facility] [address] [id number] [address] [place] [address], [place] [id number] Sep, [facility] [address] [id number] [address] [place] [address], [place] [id number] Sep, [facility] [address] [id number] [address] [place] [address], [place] [id number] Aug, [facility] [address] [id number] [address] [place] [address], [place] [id number] Aug, [facility] [address] [id number] [address] [place] [address], [place] [id number] Jul, [facility] [address] [id number] [address] [place] [address], [place] [id number] Jul, [facility] [address] [id number] [address] [place] [address], [place] [id number] June, [facility] [address] [id number] [address] [place] [address], [place] [id number] June, [facility] [address] [id number] [address] [place] [address], [place] [id number] May, [facility] [address] [id number] [address] [place] [address], [place] [id number] May, [facility] [address] [id number] [address] [place] [address], [place] [id number] May, [facility] [address] [id number] [address] [place] [phone] Apr, [facility] [address] [facility] [id number] [address] [place] [phone] Apr, [facility] [address] [facility] [id number] [address] [place] [phone] Mar, [facility] [address] [facility] [id number] [address] [place] [phone] Feb, [facility] [address] [facility] [id number] [address] [place] [phone] Feb, [facility] [address] [facility] [id number] [address] [place] [phone] Dec, [facility] [address] [facility] [id number] [address] [place] [phone] Nov, IMMUNIZATIONS No Known Immunizations SOCIAL HISTORY Never Assessed REASON FOR VISIT f/u PLAN OF CARE Activity Details Follow Up 2 Weeks Reason: F/U VITAL SIGNS MEDICATIONS Unknown Medications RESULTS No Results PROCEDURES Procedure Date Ordered Result Body Site Psychotherapy, patient &/family, 45 minutes, established pat ient May 11, 2017 INSTRUCTIONS MEDICATIONS ADMINISTERED No Known Medications
--- NOTE | 2019-09-10 15:46 | ED Lower Extremity ---
General Chief Complaint: Lower Extremity Stated Complaint: L ANKLE PAIN FROM FALL Source: patient Exam Limitations: no limitations History of Present Illness Date Seen by Provider: Sep 10, 2019 Time Seen by Provider: 15:45 Initial Comments To ER with left posterior and lateral ankle pain after he twisted it when he stepped in a hole in his yard this morning at about 8:30 AM. Onset: just prior to arrival Severity: moderate Pain/Injury Location: left ankle Method of Injury: fell Modifying Factors: Worse With Movement Allergies and Home Medications Allergies Coded Allergies: codeine (Verified Adverse Reaction, Mild, Nausea, 04/28/16) Home Medications Cetirizine HCl 10 Mg Tablet, 10 MG PO DAILY, (Reported) Montelukast Sodium 10 Mg Tablet, 10 MG PO DAILY, (Reported) Patient Home Medication List Home Medication List Reviewed: Yes Review of Systems Constitutional: see HPI EENTM: see HPI Respiratory: no symptoms reported Cardiovascular: no symptoms reported Genitourinary: no symptoms reported Musculoskeletal: see HPI Skin: no symptoms reported Psychiatric/Neurological: No Symptoms Reported Past Rjgptiv-Uwlsfz-Ltnswe Hx Patient Social History Alcohol Use: Rarely Uses Recreational Drug Use: No 2nd Hand Smoke Exposure: No Recent Foreign Travel: No Contact w/Someone Who Travel: No Recent Hopitalizations: No Seasonal Allergies Seasonal Allergies: Yes Past Medical History Surgeries: Yes (DENTAL, R TYMPANOPLASTY, HERNIA) Abdominal, Ear Surgery Respiratory: No Cardiac: No Neurological: Yes Headaches /Migraines Reproductive Disorders: Yes Sexually Transmitted Disease: No HIV/AIDS: No Gastrointestinal: No Hemorrhoids Musculoskeletal: No (PRIOR FXS OF EACH COLLAR BONES) Endocrine: No Loss of Vision: Bilateral Hearing Impairment: Hard of Hearing, Hearing Aide Left Cancer: No Psychosocial: No Integumentary: No Blood Disorders: No Adverse Reaction/Blood Tranf: No Physical Exam Vital Signs Vital Signs - First Documented 09/10/19 15:40 Temp 37.0 Pulse 71 Resp 20 B/P (MAP) 134/83 (100) Pulse Ox 97 O2 Delivery Room Air Capillary Refill : Height, Weight, BMI Height: 6'0.00" Weight: 138lbs. 0.0oz. 62.819126wi; 18.7 BMI Method:Stated General Appearance: WD/WN, no apparent distress Respiratory: no respiratory distress, no accessory muscle use Hips: bilateral hip non-tender, bilateral hip normal inspection, bilateral hip normal range of motion Legs: bilateral leg non-tender, bilateral leg normal inspection, bilateral leg normal range of motion Knees: bilateral knee non-tender, bilateral knee normal inspection, bilateral knee normal range of motion Ankles: left ankle soft tissue tenderness, left ankle swelling Feet: bilateral foot non-tender, bilateral foot normal inspection, bilateral foot normal range of motion Neurologic/Psychiatric: alert, normal mood/affect, oriented x 3 Skin: normal color, warm/dry Progress/Results/Core Measures Results/Orders Vital Signs/I&O 09/10/19 15:40 Temp 37.0 Pulse 71 Resp 20 B/P (MAP) 134/83 (100) Pulse Ox 97 O2 Delivery Room Air Departure Impression Primary Impression: Fracture of distal end of fibula Qualified Codes: S82.832A - Other fracture of upper and lower end of left fibula, initial encounter for closed fracture Disposition: HOME, SELF-CARE Condition: Stable Departure-Patient Inst. Decision time for Depature: 16:10 Referrals: TWAN BIRD MD (PCP/Family) Primary Care Physician Patient Instructions: Fibula Fracture Add. Discharge Instructions: Where a walking boot for the next 6 weeks or so. Elevate the foot as much as possible. U can take the boot off when you're at rest but when moving around you should have it on. Ice pack to the ankle will help with swelling and pain as well. All discharge instructions reviewed with patient and/or family. Voiced understanding. DEBBIE BLANCHARD G[employer] ENGINE MECHANIC Sep 10, 2019 15:46
--- NOTE | 2019-09-10 16:06 | Diagnostic Imaging Report ---
INDICATION: Pain and swelling. EXAMINATION: Left ankle. FINDINGS: There is a nondisplaced fracture through the distal fibula. There is some overlying soft tissue swelling. The plafonds and talar dome are intact. Ankle mortise remains symmetric. IMPRESSION: Nondisplaced distal fibular fracture with overlying soft tissue swelling. Dictated by: Dictated on workstation # [id number]
== END 2019-09-10 16:25 | disposition home or self-care (01) ==
LOC: EDUNIT# 15:24 → ER 15:26
DX: S82.832A Other fracture of upper and lower end of left fibula, initial encounter for closed fracture (principal); X50.1XXA Overexertion from prolonged static or awkward postures, initial encounter; Z88.5 Allergy status to narcotic agent
CPT/HCPCS: 73610; 99282; L2114

== ENCOUNTER → 2019-10-26 | Outpatient (CLI) | payer BC ==
[~2019-10-26] MED LIST changes: -CETI10TA21 PO; +CETI10TA49 PO
--- NOTE | 2019-10-26 18:14 | Diagnostic Imaging Report ---
EXAMINATION: Left ankle radiographs, 3 views. COMPARISON: September 10, 2019. HISTORY: 59-year-old male, follow-up distal fibular fracture. FINDINGS: There is a transversely oriented very mildly displaced distal fibular fracture below the level of the tibial plafond. There is unchanged fracture alignment. There is a persistent visualized fracture line. There is no pronounced interval bony callus bridging or periosteal reaction. The alignment of the ankle mortise is unremarkable. There is no additional identified fracture. There is no tibiotalar joint effusion. The joint spaces are well preserved. IMPRESSION: Redemonstrated very mildly displaced distal fibular fracture below the level of the tibial plafond without pronounced interval healing response at the current time. Dictated by: Dictated on workstation # [id number]
== END ==
LOC: RAD 15:33
DX: S82.832D Other fracture of upper and lower end of left fibula, subsequent encounter for closed fracture with routine healing (principal)
CPT/HCPCS: 73610

== ENCOUNTER → 2019-11-14 | Outpatient (CLI) | payer BC ==
--- NOTE | 2019-11-14 12:12 | Diagnostic Imaging Report ---
PROCEDURE: US left lower extremity venous. TECHNIQUE: Multiple real-time grayscale images were obtained over the left lower extremity in various projections. Additional duplex Doppler and color Doppler images were also obtained. INDICATION: Left leg edema. There is no evidence of left lower extremity DVT. Left lower extremity deep venous system shows normal compressibility with normal response to augmentation and Valsalva. No fluid collection or mass is detected. IMPRESSION: No evidence of left lower extremity DVT. Dictated by: Dictated on workstation # [id number]
--- NOTE | 2019-11-14 12:18 | Diagnostic Imaging Report ---
INDICATION: Fibular fracture, followup. TIME OF EXAM: 11:31 AM. COMPARISON: 10/26/2019. FINDINGS: The metatarsals appear to be intact. The phalanges are intact. The midfoot and hindfoot are unremarkable. No fractures are seen. IMPRESSION: No acute bony abnormality in the foot is identified. Dictated by: Dictated on workstation # [id number]
--- NOTE | 2019-11-14 13:40 | Diagnostic Imaging Report ---
INDICATION: Left ankle fracture, followup. TIME OF EXAM: 11:29 AM Comparison is made with prior ankle radiograph from 10/26/2019. There continues to be soft tissue swelling about the lateral ankle. Transversely oriented fracture of the distal fibula is again noted. This appears similar to prior exam. Fracture lines remain clearly visible. Alignment is stable. Ankle mortise is maintained. Talar dome is smooth. IMPRESSION: Continued lateral ankle swelling. Distal fibular fracture is unchanged when compared to examination from 10/26/2019. Dictated by: Dictated on workstation # [id number]
== END ==
LOC: RAD 11:16
DX: S82.832D Other fracture of upper and lower end of left fibula, subsequent encounter for closed fracture with routine healing (principal)
CPT/HCPCS: 73610; 73630

== ENCOUNTER 2020-03-18 13:07 | Outpatient (RCR) | payer BC ==
[~2020-03-18 13:07] MED LIST changes: -MONT10TA26 PO; +MONT10TA32 PO
== END 2020-05-08 11:00 | disposition home or self-care (01) ==
PROVIDERS: ATTEND Podiatrist
DX: M76.822 Posterior tibial tendinitis, left leg (principal); S82.832G Other fracture of upper and lower end of left fibula, subsequent encounter for closed fracture with delayed healing